=== PATIENT | male | born 1945 | race Caucasian/White ===

== ENCOUNTER 2020-01-16 09:04 | Outpatient (REF) | payer MEDICARE, BC, SELFPAY ==
[2020-01-16 11:31] LABS: Hematocrit 43.6 % (42-52); Hemoglobin 14.1 g/dl (14.0-18.0); Mean Corpuscular HGB Conc 32.3 g/dl (31.0-36.0); Mean Corpuscular Hemoglobin 28.8 pg (27.0-33.0); Mean Corpuscular Volume 89.2 fL (80-98); Mean Platelet Volume 10.4 fL (9.4-12.4); Platelet Count 232 X10*3/uL (160-400); Red Blood Count 4.89 X10*6/uL (4.60-5.80); Red Cell Distribution Width 12.5 % (11.0-16.0); White Blood Count 9.1 X10*3/uL (4.8-10.8)
[2020-01-16 11:50] LABS: Glucose Urine UA NEG (NEG); Leukocyte Esterase Urine 2+ (NEG); Nitrite Urine POS (NEG); Specific Gravity - Urine 1.025 (1.005-1.025); Urine Blood 1+ (NEG); Urine Ketones NEG (NEG); Urine Protein NEG (NEG-TRACE)
[2020-01-16 11:53] LABS: Appearance Urine CLOUDY; Color Urine YELLOW
[2020-01-16 12:04] LABS: Bacteria Urine 4+ /LPF; WBC Urine 50-75 /HPF (0-4)
[2020-01-16 12:19] LABS: Alanine Aminotransferase 23 U/L (0-40); Albumin Level 3.8 g/dL (3.5-5.0); Alkaline Phosphatase 70 U/L (39-117); Anion Gap 12 (12-20); Aspartate Amino Transferase 21 U/L (5-37); Bilirubin Total 0.7 mg/dL (0.0-1.0); Blood Urea Nitrogen 19 mg/dL (9-16); Calcium 8.1 mg/dL (8.4-10.2); Carbon Dioxide 31 mmol/L (22-29); Chloride 103 mmol/L (96-108); Cholesterol 118 mg/dL; Estimated Glomerular Filt Rate > 60; Glucose Fasting 94 mg/dL (60-99); HDL Cholesterol 40 mg/dL; LDL Cholesterol Calculated 55 mg/dl; Potassium 4.2 mmol/l (3.3-5.1); Prostate Specific Antigen Scr 3.97 ng/mL (<0.05-4.0); Sodium 142 mmol/L (135-145); Total Protein 6.4 g/dL (6.5-8.0); Triglycerides 119 mg/dL
== END 2020-01-16 09:05 | disposition home or self-care (01) ==
LOC: HO.HMGCLDS 09:04
PROVIDERS: PCP Internal Medicine; Visit Provider Internal Medicine
DX: N40.1 Benign prostatic hyperplasia with lower urinary tract symptoms (principal); G47.33 Obstructive sleep apnea (adult) (pediatric); E78.2 Mixed hyperlipidemia
CPT/HCPCS: 36415; 80053; 80061; 81001; 84153; 85027

== ENCOUNTER 2020-01-23 11:13 | Outpatient (REF) | payer MEDICARE, SELFPAY ==
[2020-01-23 14:15] LABS: Glucose Urine UA NEG (NEG); Leukocyte Esterase Urine 3+ (NEG); Nitrite Urine POS (NEG); PH 5.5 (5.0-8.0); Specific Gravity - Urine >= 1.030 (1.005-1.025); Urine Blood 2+ (NEG); Urine Ketones NEG (NEG); Urine Protein NEG (NEG-TRACE)
[2020-01-23 14:20] LABS: Appearance Urine CLOUDY; Color Urine YELLOW
[2020-01-23 14:36] LABS: Bacteria Urine 2+ /LPF; WBC Urine TNTC /HPF (0-4)
== END 2020-01-23 11:14 | disposition home or self-care (01) ==
LOC: HO.HMGCLDS 11:13
PROVIDERS: PCP Internal Medicine; Visit Provider Internal Medicine
DX: N40.0 Benign prostatic hyperplasia without lower urinary tract symptoms (principal)
CPT/HCPCS: 81001; 87086; 87088; 87186

== ENCOUNTER → 2020-03-11 11:15 | Outpatient (BNVA) | payer MEDICARE, BC, SELFPAY | PROVIDERS: PCP Internal Medicine; Visit Provider Internal Medicine | DX: I49.8 Other specified cardiac arrhythmias (principal); I10 Essential (primary) hypertension; G47.33 Obstructive sleep apnea (adult) (pediatric); Z99.89 Dependence on other enabling machines and devices | CPT/HCPCS: 93005; 99212 ==

== ENCOUNTER → 2020-03-17 09:00 | Outpatient (BNVA) | payer MEDICARE, BC, SELFPAY | PROVIDERS: PCP Internal Medicine; Visit Provider Psychiatry & Neurology Neurology | DX: Z76.89 Persons encountering health services in other specified circumstances (principal) | CPT/HCPCS: Q3014 ==

== ENCOUNTER 2020-03-18 10:30 | Outpatient (REF) | payer MEDICARE, BC, SELFPAY ==
[2020-03-18 13:57] LABS: MANUAL DIFF FLAG NO
[2020-03-18 14:06] LABS: Basophils Absolute Auto 0.1 X10*3/uL (0.0-0.2); Basophils Percent Auto 0.8 % (0-2); Eosinophils Absolute Auto 0.3 X10*3/uL (0.0-0.4); Eosinophils Percent Auto 2.8 % (0-4); Hematocrit 44.9 % (42-52); Hemoglobin 14.4 g/dl (14.0-18.0); Imm Gran Abs Auto 0.02 X10*3/uL (0.00-0.03); Imm Gran Pct Auto 0.2 % (0.0-0.4); Lymphocytes Absolute Auto 1.7 X10*3/uL (1.2-4.9); Lymphocytes Percent Auto 19.3 % (20-40); Mean Corpuscular HGB Conc 32.1 g/dl (31.0-36.0); Mean Corpuscular Hemoglobin 28.6 pg (27.0-33.0); Mean Corpuscular Volume 89.3 fL (80-98); Mean Platelet Volume 10.8 fL (9.4-12.4); Monocytes Absolute Auto 0.7 X10*3/uL (0.1-1.2); Monocytes Percent Auto 8.3 % (2-11); Neutrophils Absolute Auto 6.2 X10*3/uL (2.0-8.3); Neutrophils Percent Auto 68.6 % (45-73); Platelet Count 183 X10*3/uL (160-400); Red Blood Count 5.03 X10*6/uL (4.60-5.80); Red Cell Distribution Width 12.8 % (11.0-16.0)
[2020-03-18 14:22] LABS: Glucose Urine UA NEG (NEG); Leukocyte Esterase Urine NEG (NEG); Nitrite Urine NEG (NEG); PH 5.5 (5.0-8.0); Specific Gravity - Urine >= 1.030 (1.005-1.025); Urine Blood 1+ (NEG); Urine Ketones NEG (NEG); Urine Protein NEG (NEG-TRACE)
[2020-03-18 14:25] LABS: Appearance Urine CLOUDY; Color Urine YELLOW
[2020-03-18 14:46] LABS: Alanine Aminotransferase 21 U/L (0-40); Albumin Level 4.2 g/dL (3.5-5.0); Alkaline Phosphatase 64 U/L (39-117); Amorphous Sediment Urine 4+ /LPF; Anion Gap 13 (12-20); Aspartate Amino Transferase 18 U/L (5-37); Bacteria Urine TRACE /LPF; Bilirubin Total 0.7 mg/dL (0.0-1.0); Blood Urea Nitrogen 24 mg/dL (9-16); Carbon Dioxide 32 mmol/L (22-29); Chloride 103 mmol/L (96-108); Estimated Glomerular Filt Rate > 60; Glucose Random 91 mg/dL (60-115); Potassium 4.2 mmol/l (3.3-5.1); RBC Urine 0-2 /HPF (0); Sodium 144 mmol/L (135-145); Squamous Epithelial Cell Urine TRACE /LPF; Total Protein 6.7 g/dL (6.5-8.0); WBC Urine 0-2 /HPF (0-4)
[2020-03-18 14:54] LABS: Thyroid Stimulating Hormone 2.01 uIU/mL (0.32-4.0); Vitamin D 25-OH Total 31.6 ng/mL (>30)
[2020-03-18 15:09] LABS: Folate > 20.0 ng/mL (> or = 4.0); Vitamin B12 482 pg/mL (200-900)
== END 2020-03-18 10:31 | disposition home or self-care (01) ==
LOC: HO.HMGCLDS 10:30
PROVIDERS: PCP Internal Medicine; Visit Provider Psychiatry & Neurology Neurology
DX: R53.83 Other fatigue (principal); N40.0 Benign prostatic hyperplasia without lower urinary tract symptoms
CPT/HCPCS: 36415; 80053; 81001; 81003; 82306; 82607; 82746; 84443; 85025

== ENCOUNTER → 2020-04-06 13:14 | Outpatient (REF) | payer MEDICARE, BC, SELFPAY ==
--- NOTE | 2020-04-06 13:17 | ECG_ITS ---
Hook-up date: 2020-04-06 14:03:00 Duration: 43:57:00 Test Indications: CARDIAC ARRHYTHMIAS Medications: 45464 QRS complexes 144 Ventricular ectopics which represent <1 % of total QRS comp. 15 Supraventricular ectopics which represent <1 % of total QRS comp. * Paced QRS complexs which represent % of total QRS comp. VENTRICULAR ECTOPY 144 Isolated 0 Bigeminal Cycles 0 Couplets 0 Runs 0 Beats in Runs * Beats LONGEST at * BPM at :: -- * Beats FASTEST at * BPM at :: -- SUPRAVENTRICULAR ECTOPY 12 Isolated 0 Couplets 1 Runs 3 Beats in Runs 3 Beats LONGEST at 148 BPM at 15:01:28 2020-04-06 3 Beats FASTEST at 148 BPM at 15:01:28 2020-04-06 HEART RATES 43 MIN at 02:52:39 2020-04-07 64 AVG 132 MAX at 09:10:47 2020-04-07 LONGEST RR 1.4560 secs at 04:55:47 2020-04-07 S-T LEVELS Channel 1 - 128 mm at 14:03:00 2020-04-06 - 128 mm at 14:03:00 2020-04-06 Channel 2 - 128 mm at 14:03:00 2020-04-06 - 128 mm at 14:03:00 2020-04-06 Channel 3 - 128 mm at 03:32:21 -- - 128 mm at 03:32:21 Basic rhythm Normal sinus rhythm No long pause or profound bradycardia Frequent Sinus bradycardia , 49 % of time HR < 60 bpm Occasional Premature ventricular complexes Patient did not report any symptoms in the diary Referred By: Jeb Hqaue Overread By: WIL WATTS MD
--- NOTE | 2020-04-06 13:17 | CA_ITS ---
Transthoracic Echocardiogram Patient (Last, First, Middle): Kurtis Ybarra, Gender: Male Date of : 1945 Age: 74 Procedure Date: 04/06/2020 Procedure Type: Transthoracic Echocardiogram Location: OP Height: 175.26 cm Weight: 77.11 kg BSA: 1.93 m2 Heart Rate: bpm BP: 118 / 60 mmHg Accounting File Clerk: Referring MD: Jeb Haque MD Slide Attendant: Julio Dejesus MD Symptoms: I49.8 - Other specified cardiac arrhythmias Study Quality: Good ECG Rhythm: Sinus Conclusions: - 1. Normal LV systolic function with grade 1 diastolic dysfunction 2. Normal cardiac valvular Doppler with mild mitral annular calcification 3. Normal RV systolic pressure 4. No pericardial effusion Findings Left Ventricle Normal left ventricular size, thickness, and systolic function. The visually estimated ejection fraction is between 55-60%. Spectral Doppler is indicative of an impaired relaxation filling pattern. E/E prime ratio is <8, consistent with normal filling pressures. Evidence suggests grade I (mild) diastolic dysfunction. Right Ventricle Normal right ventricular cavity size and systolic function. Atria The left atrium is likely dilated. There is no evidence of interatrial shunt. The right atrium is normal in size. Aortic Valve There is mild calcification of the aortic valve. There is no aortic valve stenosis. There is no aortic valve regurgitation. Mitral Valve There is mild mitral annular calcification. There is trace mitral valve regurgitation. There is no mitral valve stenosis. Pulmonic Valve The pulmonic valve was not well visualized. Tricuspid Valve The right ventricular systolic pressure is normal. Normal right atrial pressure. Great Vessels All visible segments of the aorta are normal in size. The pulmonary artery was not well visualized. Venous The inferior vena cava is normal in size and collapses greater than 50% with inspiration. Pericardium/Pleural There is no evidence of pericardial effusion. Prior Study Comparison No significant change compared to prior study dated: 02/02/2018. Measurements 2D Linear Measurements IVSd: 0.80 0.6-0.9/0.6-1.0 cm LVIDd: 5.42 3.9-5.3/4.2-5.9 cm LVIDd Index: 2.81 2.4-3.2/2.2-3.1 cm/m2 LVIDs: 3.56 2.0-3.6 cm LVPWd: 0.84 0.7-1.1 cm Ao Root: 3.30 2.1-3.5 cm LA Diam: 4.00 2.7-3.8/3.0-4.0 cm LAIDs Index: 2.07 1.5-2.3 cm/m2 LV Mass: 200.38 67-162/88-224 g LV Mass Index: 103.83 43-95/49-115 g/m2 LVOT Diam: 2.00 3.0+(-)1.3 cm 2D Systolic Function EF 4C: 55.70 >55% EF 2C: 51.60 >55% Mitral Valve MV Pk E: 0.68 MV PK A: 0.90 MV Decel Time: 259.00 E/A: 0.80 E'Lateral: 12.40 E'Medial: 8.12 E/E' Med: 8.40 E/E' Lat: 5.50 PHT: 76.00 MVA PHT: 2.89 Decel [place]: 2.63 Aortic Valve AoV Pk Turner: 1.51 AoV Mn Turner: 0.89 AoV VTI: 0.34 AoV Pk Grad: 9.00 Aov Mn Grad: 4.00 RICARDO Cont.VTI: 2.23 LVOT LVOT Pk Turner: 1.05 LVOT Mn Turner: 0.67 LVOT VTI: 0.24 LVOT Pk Grad: 4.00 LVOT Mn Grad: 2.00 LVOT Diam: 2.00 LVOT Area: 3.14 Diastolic Function MV Pk E: 0.68 MV Pk A: 0.90 E/A: 0.80 E'Medial: 8.12 E/E' Med: 8.40 E' Laterial: 12.40 E/E' Lat: 5.50 Tricuspid Valve TR Pk Turner: 2.51 TR Pk Grad: 25.00 RA Press: 3.00 RVSP: 28.00 Great Vessels Aorta Ao Root-2D: 3.30 2.0-3.7 cm Ao Asc: 3.10 2.1-3.4 cm Pulmonary Valve PV Pk Turner: 1.06 Peak PV Grad: 4.00 Updated in Other Vendor System with Status of Final Julio Dejesus MD electronically signed on 04/07/2020 2:07:07 PM with status of Final
== END ==
LOC: HO.CARD 13:14
PROVIDERS: Visit Provider Internal Medicine
DX: I49.8 Other specified cardiac arrhythmias (principal)
CPT/HCPCS: 93225; 93226; 93306

== ENCOUNTER → 2020-04-29 11:18 | Outpatient (BNVA) | payer MEDICARE, BC, SELFPAY | PROVIDERS: PCP Internal Medicine; Visit Provider Internal Medicine | DX: I49.8 Other specified cardiac arrhythmias (principal); I10 Essential (primary) hypertension; G47.33 Obstructive sleep apnea (adult) (pediatric); Z99.89 Dependence on other enabling machines and devices | CPT/HCPCS: 99212 ==

== ENCOUNTER → 2020-09-29 11:22 | Outpatient (BNVA) | payer MEDICARE, BC, SELFPAY | PROVIDERS: PCP Internal Medicine; Visit Provider Psychiatry & Neurology Neurology | DX: G47.33 Obstructive sleep apnea (adult) (pediatric) (principal); R53.83 Other fatigue; Z99.89 Dependence on other enabling machines and devices | CPT/HCPCS: Q3014 ==

== ENCOUNTER 2020-11-11 08:55 | Day surgery (SDC) | payer MEDICARE, BC, SELFPAY ==
[2020-11-04 13:49] VITALS: BMI 25.1
--- NOTE | 2020-11-10 10:16 | P.CONAN_ITS ---
Documented by User: Dottie Bangura NP 11/10/20 10:17 [facility] Active Problems Active Problems: All Active Problems (Updated 11/04/20 @ 13:48 by Fernanda Lawrence RN) Atrial arrhythmia (Acute) Fatigue (Acute) JAYLA on CPAP (Acute) Essential hypertension (Acute) BPH (benign prostatic hyperplasia) (Acute) HTN (hypertension) (Acute) Past Medical History Medical History BPH (benign prostatic hyperplasia) COVID-19 vaccine series completed Essential hypertension GERD (gastroesophageal reflux disease) H/O needle biopsy HTN (hypertension) Hyperlipidemia JAYLA on CPAP Premature atrial contractions Family History Family History Father No problems noted. Mother No problems noted. Surgical History Surgical History H/O colonoscopy Hx of detached retina repair Social History Social History Are you a primary care advocate to a significant other at home: No Do you presently have visiting nurse or other home services: No Alcohol intake: current Alcohol intake frequency: holidays/special occasions only Patient Tobacco Use Status: Never used Tobacco Use of substances other than those prescribed or required for medical reasons: No Have you been hit, kicked, punched, or otherwise hurt by someone within the past year? If so, by whom?: No Are you DNR?: No Advance Directives: No Advance Directives Information Provided: Yes (no official HCP form but states would be his ) Advance Directives on File: No Recently lost weight without trying: No Eating poorly because of decreased appetite: No Nutrition Risks: No Nutritional Risk Poor oral hygiene: No Meds Allergies Allergy/AdvReac Type Severity Reaction Status Date / Time No Known Allergies Allergy Verified 09/29/20 11:25 Home Medications Medication Instructions Recorded Confirmed Last Taken Type aspirin 81 mg tablet,delayed 81 mg PO DAILY 01/23/20 11/04/20 Unknown History release biotin 1 mg tablet 1 mg PO DAILY 01/23/20 11/04/20 Unknown History chlorhexidine gluconate 0.12 % 0.5 ml PO BID 01/23/20 04/29/20 Unknown History mouthwash finasteride 5 mg tablet 5 mg PO BEDTIME 01/23/20 11/04/20 Unknown History fluticasone propionate 50 1 spray INTRANASAL DAILY 01/23/20 11/04/20 Unknown History mcg/actuation nasal spray,suspension multivitamin with iron 1 tab PO DAILY 01/23/20 11/04/20 Unknown History tamsulosin 0.4 mg capsule 0.4 mg PO BEDTIME 01/23/20 11/04/20 Unknown History ascorbic acid (vitamin C) 500 mg 500 mg PO DAILY 04/29/20 11/04/20 Unknown History capsule simvastatin 40 mg tablet 40 mg PO QPM 11/04/20 11/04/20 Unknown History Exam Exam Date and Time: November 10, 2020 1016 Height,Weight and Vital Signs: Height 5 ft 9 in Weight 77.111 kg Narrative Narrative: EKG 03/2020 baseline artifact but underlying rhythm appears to be sinus at 56/Min with some lateral ST-T changes which are nonspecific. ECHO 04/2020 Conclusions: - 1. Normal LV systolic function with grade 1 diastolic? dysfunction? 2. Normal cardiac valvular Doppler with mild mitral annular? ? ? calcification? 3. Normal RV systolic pressure ? 4. No pericardial effusion ? ? ? Holter 2020 Basic rhythm Normal sinus rhythm No long pause or profound bradycardia Frequent Sinus bradycardia , 49 % of time HR < 60 bpm Occasional Premature ventricular complexes Patient did not report any symptoms in the diary Exercise stress [id number] protocol, 7.6 Mets; no angina or ischemic findings Assessment and Plan Assessment Anesthesia Assessment: Chart Reviewed Documented by User: Adele Mayo MD 11/11/20 11:02 [facility] Past Medical History Medical History BPH (benign prostatic hyperplasia) COVID-19 vaccine series completed Essential hypertension GERD (gastroesophageal reflux disease) H/O needle biopsy HTN (hypertension) Hyperlipidemia JAYLA on CPAP Premature atrial contractions Family History Family History Father No problems noted. Mother No problems noted. Surgical History Surgical History H/O colonoscopy Hx of detached retina repair History of Problems with Anesthesia: No Social History Social History Are you a primary care advocate to a significant other at home: No Do you presently have visiting nurse or other home services: No Alcohol intake: current Alcohol intake frequency: holidays/special occasions only Patient Tobacco Use Status: Never used Tobacco Use of substances other than those prescribed or required for medical reasons: No Have you been hit, kicked, punched, or otherwise hurt by someone within the past year? If so, by whom?: No Are you DNR?: No Advance Directives: No Advance Directives Information Provided: Yes (no official HCP form but states would be his ) Advance Directives on File: No Recently lost weight without trying: No Eating poorly because of decreased appetite: No Nutrition Risks: No Nutritional Risk Poor oral hygiene: No Meds Allergies Allergy/AdvReac Type Severity Reaction Status Date / Time No Known Allergies Allergy Verified 09/29/20 11:25 Home Medications Medication Instructions Recorded Confirmed Last Taken Type aspirin 81 mg tablet,delayed 81 mg PO DAILY 01/23/20 11/04/20 Unknown History release biotin 1 mg tablet 1 mg PO DAILY 01/23/20 11/04/20 Unknown History chlorhexidine gluconate 0.12 % 0.5 ml PO BID 01/23/20 04/29/20 Unknown History mouthwash finasteride 5 mg tablet 5 mg PO BEDTIME 01/23/20 11/04/20 Unknown History fluticasone propionate 50 1 spray INTRANASAL DAILY 01/23/20 11/04/20 Unknown History mcg/actuation nasal spray,suspension multivitamin with iron 1 tab PO DAILY 01/23/20 11/04/20 Unknown History tamsulosin 0.4 mg capsule 0.4 mg PO BEDTIME 01/23/20 11/04/20 Unknown History ascorbic acid (vitamin C) 500 mg 500 mg PO DAILY 04/29/20 11/04/20 Unknown History capsule simvastatin 40 mg tablet 40 mg PO QPM 11/04/20 11/04/20 Unknown History Exam Airway Mallampati Class: III (Prominent upper central incisors) TM Dist: >3cm Neck ROM: Full Loose/Missing/Broken Teeth: No Heart: RRR Lungs: CTA Assessment and Plan Assessment Anesthesia Assessment: Anesthesia Plan Discussed Final Anesthetic Review History of Problems with Anesthesia: No NPO: Yes ASA Class: III Final Preanesthetic Review: Meds/Allgs Chart Reviewed, Consent Obtained/Reviewed and Anes Risks/Benef Reviewed Patient Risk: Intermediate Procedure Risk: Low Anesthetic Plan Anesthetic Plan: MAC: Disposition: Standard PACU
[2020-11-11 09:14] VITALS: BP 152/71; PULSE 59; RESP 18; TEMP 36.1; O2SAT 96
[2020-11-11] MEDS: Lactated Ringers 1,000 ML 100 ML IVCONT (09:25)
[2020-11-11 12:02] VITALS: BP 102/62; PULSE 52; RESP 18; TEMP 36.3; O2SAT 97
--- NOTE | 2020-11-11 12:07 | PM.OP ---
Brief Operative Note Date of Service: 11/11/20 Pre-op diagnosis: Screening Post-op diagnosis: other (Colon polyps) Procedure: Colonoscopy to the cecum with snare polypectomy, bx/removal of polyp, and clip x 2 and ink tatoo at polypectomy site at 60cm distal transverse colon Surgeon: Luc Pereira Anesthesia: MAC Was an Airport Operations Coordinator used for this Procedure?: No Estimated blood loss (mL): 5.0 Pathology: other (A. Polyp at 40cm(bx) B. Ascending colon polyp(snare) C. Hepatic flexure polyps x 2(snare) D. Transverse colon polyp(snare) E. Polyp at distal transverse colon/60cm(snare, clipped, and inked)) Condition: stable Disposition: PACU
[2020-11-11 12:17] VITALS: BP 107/58; PULSE 53; RESP 18; O2SAT 96
[2020-11-11 12:31] VITALS: BP 107/58; PULSE 55; RESP 18; TEMP 36.3; O2SAT 97
--- NOTE | 2020-11-16 14:36 | OP_ITS ---
SURGEON: Luc Pereira MD INDICATIONS: The patient presents for evaluation of colorectal cancer screening and personal history of tubular adenoma of the colon. Full consent has been obtained from him for this, including risks of bleeding and perforation. PREOPERATIVE DIAGNOSIS: POSTOPERATIVE DIAGNOSIS: PROCEDURE PERFORMED: Colonoscopy to the cecum with snare polypectomy, biopsy and removal of polyp, and placement of resolution clips and submucosal ink tattoo at the polypectomy site in the distal transverse colon at 60 cm. ESTIMATED BLOOD LOSS: COMPLICATIONS: ANESTHESIA: Monitored anesthesia care. ASSISTANTS: SPECIMENS: PREOPERATIVE DIAGNOSES: Colorectal cancer screening and personal history of tubular adenoma of the colon. POSTOPERATIVE DIAGNOSES: Colorectal cancer screening and personal history of tubular adenoma of the colon, colon polyps, diverticulosis, and internal hemorrhoids. DESCRIPTION OF PROCEDURE: The patient was placed in the left lateral decubitus position. The digital rectal exam revealed no abnormalities. The Olympus video pediatric colonoscope was entered into the rectum and advanced to the cecum with the assistance of abdominal wall pressure. Once in the cecum, I did identify normal-appearing cecal pouch with appendiceal orifice and a normal-appearing ileocecal valve. There was transillumination of light deep in the right lower quadrant. The entire cecum and ileocecal valve appeared normal. The scope was then slowly withdrawn assessing all mucosal surfaces carefully. Preparation was excellent. In the proximal ascending colon on a fold, was an approximately 10 to 12 mm flat, but raised polypoid lesion that was somewhat overlapping the fold. This was snared and recovered by suction. The polypectomy site appeared clean, without any sign of residual polyp nor bleeding. In the region of the hepatic flexure, were 2 approximately 6 to 8 mm polyps, which were each snared and recovered by suction and placed in the same container. The polypectomy sites appeared clean, without any sign of residual polyp nor bleeding. In the mid transverse colon, was an approximately 6 to 8 mm flat, but raised polyp, which was snared and recovered by suction. The polypectomy site appeared clean, without any sign of residual polyp nor bleeding. In the region of what appeared to be the distal transverse colon, at 60 cm, was a relatively large lobulated polypoid lesion overlapping a fold. This was approximately 15 x 20 cm. It was not ulcerated, but was somewhat friable. This was removed almost in its entirety in piecemeal fashion, but I do feel there was some residual polyp tissue left behind. Multiple pieces were recovered by suction. Post polypectomy, there was some oozing noted, but there was no sign of any active bleeding. I did use 2 resolution clips on the polypectomy site with good deployment and good hemostasis. I also injected submucosal ink just proximal and just distal to the lesion with good markings achieved. At 40 cm, was a flat approximately 4 mm polyp, which was biopsied and completely removed with cold biopsy forceps. I did not visualize any other polyps, colitis, nor angiodysplasia. There was a moderate amount of sigmoid diverticulosis. In the rectum, scope was retroflexed visualizing some small internal hemorrhoids, but no other pathology. The rectal mucosa appeared normal. The scope was straightened and withdrawn from the patient. He tolerated the procedure well and was returned to recovery area in stable condition. IMPRESSION: 1. Multiple colon polyps. The larger polyp in the distal transverse colon at 60 cm did appear somewhat suspicious. 2. Diverticulosis. 3. Internal hemorrhoids. PLAN: The results of the biopsies will be checked. Further plans will be made accordingly in regard to the larger polyp. If this is simply tubular adenoma or villous adenoma without any significant dysplasia or carcinoma, then we could plan to go back to try to remove the rest of it in 3 to 6 months. He was advised not to use any aspirin nor NSAIDs for at least 2 weeks. I will be in touch with him as to these results. This has been discussed with the patient and his in detail. MD KARTHIK Duke/VIANCA / [id number]
== END 2020-11-11 13:07 | disposition home or self-care (01) ==
PROVIDERS: PCP Internal Medicine; Visit Provider Internal Medicine
PROC: 0DJD8ZZ Inspection of Lower Intestinal Tract, Via Natural or Artificial Opening Endoscopic (ICD-10-PCS; CPT 45378; principal; 2020-11-11 10:00)
DX: Z12.11 Encounter for screening for malignant neoplasm of colon (principal); Z86.010 Personal history of colon polyps; D12.2 Benign neoplasm of ascending colon; D12.3 Benign neoplasm of transverse colon; D12.5 Benign neoplasm of sigmoid colon; K57.30 Diverticulosis of large intestine without perforation or abscess without bleeding; K64.8 Other hemorrhoids; G47.33 Obstructive sleep apnea (adult) (pediatric); N40.0 Benign prostatic hyperplasia without lower urinary tract symptoms; Z79.82 Long term (current) use of aspirin; Z99.89 Dependence on other enabling machines and devices
CPT/HCPCS: 45385; 45380; 45381; 88305; J3010

== ENCOUNTER 2021-01-13 08:58 | Outpatient (REF) | payer MEDICARE, BC, SELFPAY ==
[2021-01-13 11:35] LABS: Hemoglobin 14.7 g/dl (14.0-18.0); Mean Corpuscular HGB Conc 32.7 g/dl (31.0-36.0); Mean Corpuscular Hemoglobin 28.4 pg (27.0-33.0); Platelet Count 209 X10*3/uL (160-400); Red Blood Count 5.17 X10*6/uL (4.60-5.80); Red Cell Distribution Width 12.7 % (11.0-16.0); White Blood Count 7.5 X10*3/uL (4.8-10.8)
[2021-01-13 11:47] LABS: Alanine Aminotransferase 21 U/L (0-40); Albumin Level 4.2 g/dL (3.5-5.0); Alkaline Phosphatase 60 U/L (39-117); Anion Gap 11 (12-20); Aspartate Amino Transferase 20 U/L (5-37); Bilirubin Total 0.5 mg/dL (0.0-1.0); Blood Urea Nitrogen 23 mg/dL (9-16); Calcium 9.3 mg/dL (8.4-10.2); Carbon Dioxide 31 mmol/L (22-29); Chloride 104 mmol/L (96-108); Cholesterol 146 mg/dL; Estimated Glomerular Filt Rate > 60; Glucose Fasting 95 mg/dL (60-99); HDL Cholesterol 56 mg/dL; LDL Cholesterol Calculated 67 mg/dl; Sodium 142 mmol/L (135-145); Total Protein 7.1 g/dL (6.5-8.0); Triglycerides 117 mg/dL
[2021-01-13 13:44] LABS: Prostate Specific Antigen Scr 3.95 ng/mL (<0.05-4.0)
== END 2021-01-13 08:59 | disposition home or self-care (01) ==
LOC: HO.HMGCLDS 08:58
PROVIDERS: PCP Internal Medicine; Visit Provider Internal Medicine
DX: I10 Essential (primary) hypertension (principal); I49.8 Other specified cardiac arrhythmias; R53.83 Other fatigue
CPT/HCPCS: 36415; 80053; 80061; 84153; 85027

== ENCOUNTER → 2021-04-21 09:54 | Outpatient (REF) | payer MEDICARE, BC, SELFPAY ==
--- NOTE | 2021-04-21 14:02 | ECG_ITS ---
Hook-up date: 2021-04-21 11:10:00 Duration: 46:12:00 Test Indications: OTHER SPEC. CARDIAC ARRHYTHMIAS Medications: 58966 QRS complexes 65 Ventricular ectopics which represent <1 % of total QRS comp. 52 Supraventricular ectopics which represent <1 % of total QRS comp. * Paced QRS complexs which represent % of total QRS comp. VENTRICULAR ECTOPY 65 Isolated 0 Bigeminal Cycles 0 Couplets 0 Runs 0 Beats in Runs * Beats LONGEST at * BPM at :: -- * Beats FASTEST at * BPM at :: -- SUPRAVENTRICULAR ECTOPY 46 Isolated 1 Couplets 1 Runs 4 Beats in Runs 4 Beats LONGEST at 130 BPM at 20:19:33 2021-04-21 4 Beats FASTEST at 130 BPM at 20:19:33 2021-04-21 HEART RATES 49 MIN at 05:17:04 2021-04-22 63 AVG 101 MAX at 09:30:55 2021-04-22 LONGEST RR 1.4000 secs at 05:49:26 2021-04-22 S-T LEVELS Channel 1 - 128 mm at 11:10:00 2021-04-21 - 128 mm at 11:10:00 2021-04-21 Channel 2 - 128 mm at 11:10:00 2021-04-21 - 128 mm at 11:10:00 2021-04-21 Channel 3 - 128 mm at 03:02:91 -- - 128 mm at 03:02:91 Basic rhythm Normal sinus rhythm Frequent Sinus bradycardia , 45% of time HR < 60 bpm Rare ectopics No diary submitted Referred By: Jeb Haque Overread By: WIL WATTS MD
== END ==
LOC: HO.CARD 09:54
PROVIDERS: PCP Internal Medicine; Referring Provider Internal Medicine; Visit Provider Internal Medicine
DX: I49.8 Other specified cardiac arrhythmias (principal)
CPT/HCPCS: 93226

== ENCOUNTER → 2021-05-03 09:55 | Outpatient (BNVA) | payer MEDICARE, BC, SELFPAY | PROVIDERS: PCP Internal Medicine; Referring Provider Internal Medicine; Visit Provider Internal Medicine | DX: I49.8 Other specified cardiac arrhythmias (principal); I10 Essential (primary) hypertension; G47.33 Obstructive sleep apnea (adult) (pediatric); Z99.89 Dependence on other enabling machines and devices | CPT/HCPCS: 93005; 99212 ==

== ENCOUNTER 2021-05-10 07:00 | Day surgery (SDC) | payer MEDICARE, BC, SELFPAY ==
[2021-05-04 13:59] VITALS: BMI 26.2
[2021-05-10 07:54] VITALS: BP 160/72; PULSE 54; RESP 16; TEMP 36.5; O2SAT 95
[2021-05-10] MEDS: Lactated Ringers 1,000 ML 50 ML IVCONT (08:03)
--- NOTE | 2021-05-10 08:15 | HO.ANESPROP2 ---
HPI - Anesthesia Eval Consult details Narrative: screening colonoscopy [facility] Active Problems Active Problems: All Active Problems (Updated 01/18/21 @ 15:00 by Karen Charles MD) Atrial arrhythmia (Acute) Fatigue (Acute) Vitamin D deficiency (Acute) Annual physical exam (Acute) Hyperlipidemia (Acute) JAYLA on CPAP (Acute) Essential hypertension (Acute) BPH (benign prostatic hyperplasia) (Acute) HTN (hypertension) (Acute) Past Medical History Medical History (Updated 01/18/21 @ 15:00 by Karen Charles MD) Annual physical exam BPH (benign prostatic hyperplasia) COVID-19 vaccine series completed Essential hypertension GERD (gastroesophageal reflux disease) H/O needle biopsy HTN (hypertension) Hyperlipidemia JAYLA on CPAP Premature atrial contractions Vitamin D deficiency Family History Family History Father No problems noted. Mother No problems noted. Family history of problems with anesthesia: No Surgical History Surgical History (Updated 05/04/21 @ 13:50 by Fernanda Lawrence RN) H/O colonoscopy Hx of detached retina repair History of Problems with Anesthesia: No Social History Social History Housing: House Are you a primary account executive healthcare to a significant other at home: No Do you presently have visiting nurse or other home services: No Alcohol intake: current Alcohol intake frequency: holidays/special occasions only Patient Tobacco Use Status: Never used Tobacco e-Cigarette/Vaping Use: Never Used Use of substances other than those prescribed or required for medical reasons: No Advance Directives: No (unknown-VM message left) Advance Directives Information Provided: Yes Advance Directives on File: No Current occupational status: retired Meds Allergies Allergy/AdvReac Type Severity Reaction Status Date / Time No Known Allergies Allergy Verified 05/10/21 07:45 Active Medications: Current Medications Lactated Ringer's (Lr) 1,000 mls @ 50 mls/hr IVCONT .Q20H NATHANAEL Last Admin: 05/10/21 08:03 Dose: 50 mls/hr Documented by: Sodium Biphosphate/Sodium Phosphate (Sodium Phosphate,[place]-Dibasic 133 Ml Enema) 133 ml HI ONCE PRN PRN Reason: Poor Colonoscopy Prep Results Home Medications Medication Instructions Recorded Confirmed Last Taken Type aspirin 81 mg tablet,delayed 81 mg PO DAILY 01/23/20 05/10/21 05/02/21 History release biotin 1 mg tablet 1 mg PO DAILY 01/23/20 05/04/21 Unknown History chlorhexidine gluconate 0.12 % 0.5 ml PO BID 01/23/20 05/04/21 Unknown History mouthwash finasteride 5 mg tablet 5 mg PO BEDTIME 01/23/20 05/04/21 Unknown History multivitamin with iron 1 tab PO DAILY 01/23/20 05/04/21 Unknown History tamsulosin 0.4 mg capsule 0.4 mg PO BEDTIME 01/23/20 05/04/21 Unknown History ascorbic acid (vitamin C) 500 mg 500 mg PO DAILY 04/29/20 05/04/21 Unknown History capsule simvastatin 40 mg tablet 40 mg PO QPM 11/04/20 05/04/21 Unknown History cholecalciferol (vitamin D3) 50 50 mcg PO DAILY 01/18/21 05/04/21 Unknown History mcg (2,000 unit) capsule Exam Exam Date and Time: May 10, 2021 0815 Height,Weight and Vital Signs: Height 5 ft 8.25 in Weight 78.925 kg Last Vital Signs Temp 97.7 F 05/10/21 07:54 Pulse 54 05/10/21 07:54 Resp 16 05/10/21 07:54 BP 160/72 H 05/10/21 07:54 Pulse Ox 95 05/10/21 07:54 Airway Mallampati Class: II TM Dist: >3cm Neck ROM: Full Loose/Missing/Broken Teeth: No Heart: [id number] Lungs: cta b/l Assessment and Plan Assessment Anesthesia Assessment: Anesthesia Plan Discussed and Chart Reviewed Final Anesthetic Review Family History of Problems with Anesthesia: No History of Problems with Anesthesia: No NPO: Yes ASA Class: III Final Preanesthetic Review: No Changes in Pt Med Stat, Meds/Allgs Chart Reviewed, Consent Obtained/Reviewed and Anes Risks/Benef Reviewed Patient Risk: Intermediate Procedure Risk: Low Assessment/Block/Sedation in SS: Assess/Block/Sedation-SS Anesthetic Plan Anesthetic Plan: MAC: and Agree w/ Assess. and Plan Disposition: Standard PACU
--- NOTE | 2021-05-10 09:49 | PM.OP ---
Brief Operative Note Date of Service: 05/10/21 Pre-op diagnosis: Screening Post-op diagnosis: other (Polyps) Procedure: Colonoscopy to the cecum with hot snare polypectomy Surgeon: Luc Pereira Anesthesia: MAC Was an Housing Development Specialist used for this Procedure?: No Estimated blood loss (mL): 3.0 Pathology: other (A. Polyp at 60cm) Condition: stable Disposition: PACU
[2021-05-10 09:52] VITALS: BP 140/66; PULSE 56; RESP 14; TEMP 36.1; O2SAT 99
[2021-05-10 10:07] VITALS: BP 136/70; PULSE 58; RESP 18; O2SAT 95
[2021-05-10 10:22] VITALS: BP 132/67; PULSE 50; RESP 18; TEMP 36.2; O2SAT 95
--- NOTE | 2021-05-10 10:41 | OP_ITS ---
SURGEON: Luc Pereira MD INDICATIONS: The patient presents for evaluation of colorectal cancer screening and personal history of tubular adenoma of the colon. Full consent was obtained from him for this, including risks of bleeding and perforation. PREOPERATIVE DIAGNOSIS: Colorectal cancer screening and personal history of tubular adenoma of the colon. POSTOPERATIVE DIAGNOSIS: PROCEDURE PERFORMED: Colonoscopy to the cecum with hot snare polypectomy x 2. ESTIMATED BLOOD LOSS: COMPLICATIONS: ANESTHESIA: Monitored anesthesia care. ASSISTANTS: SPECIMENS: POSTOPERATIVE DIAGNOSES: Colorectal cancer screening and personal history of tubular adenomas of the colon, colon polyps, diverticulosis, and internal hemorrhoids. DESCRIPTION OF PROCEDURE: The patient was placed in the left lateral decubitus position. The digital rectal exam revealed no abnormalities. The Olympus video pediatric colonoscope was entered into the rectum and advanced easily to the cecum. Once in the cecum, I did identify normal-appearing cecal pouch with normal-appearing ileocecal valve. The appendiceal orifice was visualized and appeared normal. The entire cecum and ileocecal valve appeared normal. The terminal ileum was cannulated and appeared normal. The scope was withdrawn back in the colon. The entire cecum and ileocecal valve appeared normal. The scope was slowly withdrawn assessing all mucosal surfaces carefully. Preparation was excellent. At 60 cm, with the previously placed submucosal ink gomez noted just proximal and distal to this area, was an approximately 5 or 6 mm polyp, which was removed by hot snare polypectomy. In the same area was the residual polyp that had previously been removed. This was an area approximately 1.5 cm in diameter along the fold. The majority of this was removed via hot snare polypectomy. Portions of polyp were cauterized with the tip of the snare as well. Postpolypectomy, there was probably still some residual polyp tissue remaining, but there was no bleeding. At least 1 piece was recovered by suction. I did not visualize any other polyps, colitis, nor angiodysplasia. There was a mild amount of sigmoid diverticulosis. In the rectum, the scope was retroflexed visualizing some internal hemorrhoids, but no other pathology. The rectal mucosa appeared normal. The scope was straightened and withdrawn from the patient. He tolerated the procedure well and was returned to the recovery area in stable condition. IMPRESSION: 1. Colon polyps, status post hot snare polypectomy. 2. Diverticulosis. 3. Internal hemorrhoids. PLAN: The results of the pathology will be checked. Given the history and today's findings, I would recommend that he see me again by November and we shall then schedule a followup colonoscopy for later in the fall. He was advised not to use any aspirin and NSAIDs for at least 1 week. This has been discussed with his . MD KARTHIK Duke/VIANCA / [id number] MTDD
== END 2021-05-10 11:29 | disposition home or self-care (01) ==
PROVIDERS: PCP Internal Medicine; Visit Provider Internal Medicine
PROC: 0DJD8ZZ Inspection of Lower Intestinal Tract, Via Natural or Artificial Opening Endoscopic (ICD-10-PCS; CPT 45378; principal; 2021-05-10 08:20)
DX: Z12.11 Encounter for screening for malignant neoplasm of colon (principal); Z86.010 Personal history of colon polyps; K63.5 Polyp of colon; K57.30 Diverticulosis of large intestine without perforation or abscess without bleeding; K64.8 Other hemorrhoids; N40.0 Benign prostatic hyperplasia without lower urinary tract symptoms; I10 Essential (primary) hypertension; E78.5 Hyperlipidemia, unspecified; G47.33 Obstructive sleep apnea (adult) (pediatric); Z79.82 Long term (current) use of aspirin; Z79.899 Other long term (current) drug therapy
CPT/HCPCS: 45385; 88305

== ENCOUNTER 2022-01-12 09:32 | Outpatient (REF) | payer MEDICARE, BC, SELFPAY ==
[2022-01-12 11:31] LABS: Hematocrit 43.5 % (42.0-52.0); Hemoglobin 14.4 g/dl (14.0-18.0); Mean Corpuscular HGB Conc 33.1 g/dl (31.0-36.0); Mean Corpuscular Hemoglobin 28.9 pg (27.0-33.0); Mean Corpuscular Volume 87.3 fL (80.0-98.0); Mean Platelet Volume 10.6 fL (9.4-12.4); Platelet Count 175 X10*3/uL (160-400); Red Blood Count 4.98 X10*6/uL (4.60-5.80); Red Cell Distribution Width 12.8 % (11.0-16.0); White Blood Count 6.6 X10*3/uL (4.8-10.8)
[2022-01-12 12:12] LABS: Alanine Aminotransferase 23 U/L (0-40); Albumin Level 4.2 g/dL (3.5-5.0); Alkaline Phosphatase 62 U/L (39-117); Anion Gap 16 (12-20); Aspartate Amino Transferase 21 U/L (5-37); Bilirubin Total 0.7 mg/dL (0.0-1.0); Blood Urea Nitrogen 22 mg/dL (9-16); Calcium 8.6 mg/dL (8.4-10.2); Carbon Dioxide 29 mmol/L (22-29); Chloride 102 mmol/L (96-108); Cholesterol 153 mg/dL; Estimated Glomerular Filt Rate > 60; Glucose Fasting 99 mg/dL (60-99); HDL Cholesterol 60 mg/dL; LDL Cholesterol Calculated 74 mg/dl; Potassium 3.6 mmol/L (3.3-5.1); Sodium 143 mmol/L (135-145); Triglycerides 98 mg/dL
== END 2022-01-12 09:33 | disposition home or self-care (01) ==
LOC: HO.HMGCLDS 09:32
PROVIDERS: PCP Internal Medicine; Visit Provider Internal Medicine
DX: Z00.00 Encounter for general adult medical examination without abnormal findings (principal); E55.9 Vitamin D deficiency, unspecified; E78.5 Hyperlipidemia, unspecified; I10 Essential (primary) hypertension
CPT/HCPCS: 36415; 80053; 80061; 82306; 85027

== ENCOUNTER 2022-02-10 06:25 | Day surgery (SDC) | payer MEDICARE, BC, SELFPAY ==
--- NOTE | 2022-01-07 10:51 | HO.ANESPROP2 ---
HPI - Anesthesia Eval Consult details Narrative: 76yo M for Colonoscopy s/p same 05/2021 with TIVA PMFSH Active Problems Active Problems: All Active Problems (Updated 11/18/21 @ 11:48 by Karen Charles MD) Cataract (Acute) Atrial arrhythmia (Acute) Fatigue (Acute) Vitamin D deficiency (Acute) Annual physical exam (Acute) Hyperlipidemia (Acute) JAYLA on CPAP (Acute) Essential hypertension (Acute) BPH (benign prostatic hyperplasia) (Acute) HTN (hypertension) (Acute) Past Medical History Medical History Annual physical exam BPH (benign prostatic hyperplasia) COVID-19 vaccine series completed Essential hypertension GERD (gastroesophageal reflux disease) H/O needle biopsy HTN (hypertension) Hyperlipidemia JAYLA on CPAP Premature atrial contractions Vitamin D deficiency Family History Family History Father No problems noted. Mother No problems noted. Family history of problems with anesthesia: No Surgical History Surgical History H/O colonoscopy Hx of detached retina repair History of Problems with Anesthesia: No Social History Social History Housing: House Are you a primary healthcare translator to a significant other at home: No Do you presently have visiting nurse or other home services: No Alcohol intake: current Alcohol intake frequency: holidays/special occasions only Patient Tobacco Use Status: Never used Tobacco e-Cigarette/Vaping Use: Never Used Current occupational status: retired Cognitive needs: No Hearing needs: No Vision needs: Yes Meds Allergies Allergy/AdvReac Type Severity Reaction Status Date / Time No Known Allergies Allergy Verified 11/18/21 11:09 Home Medications Medication Instructions Recorded Confirmed Last Taken Type aspirin 81 mg tablet,delayed 81 mg PO DAILY 01/23/20 11/18/21 05/02/21 History release biotin 1 mg tablet 1 mg PO DAILY 01/23/20 11/18/21 Unknown History chlorhexidine gluconate 0.12 % 0.5 ml PO BID 01/23/20 11/18/21 Unknown History mouthwash finasteride 5 mg tablet 5 mg PO BEDTIME 01/23/20 11/18/21 Unknown History multivitamin with iron 1 tab PO DAILY 01/23/20 11/18/21 Unknown History tamsulosin 0.4 mg capsule 0.4 mg PO BEDTIME 01/23/20 11/18/21 Unknown History ascorbic acid (vitamin C) 500 mg 500 mg PO DAILY 04/29/20 11/18/21 Unknown History capsule cholecalciferol (vitamin D3) 50 50 mcg PO DAILY 01/18/21 11/18/21 Unknown History mcg (2,000 unit) capsule Exam Exam Date and Time: January 07, 2022 1051 Narrative Narrative: EKG 04/2021 NSR @ 60 Assessment and Plan Assessment Anesthesia Assessment: Chart Reviewed Final Anesthetic Review Family History of Problems with Anesthesia: No History of Problems with Anesthesia: No
--- NOTE | 2022-02-09 12:41 | HO.ANESPROP2 ---
Documented by User: Dottie Bangura NP 02/09/22 12:44 HPI - Anesthesia Eval Consult details Narrative: 76yo M for Colonoscopy s/p colo 05/2021 with TIVA PMFSH Active Problems Active Problems: All Active Problems (Updated 11/18/21 @ 11:48 by Karen Charles MD) Cataract (Acute) Atrial arrhythmia (Acute) Fatigue (Acute) Vitamin D deficiency (Acute) Annual physical exam (Acute) Hyperlipidemia (Acute) JAYLA on CPAP (Acute) Essential hypertension (Acute) BPH (benign prostatic hyperplasia) (Acute) HTN (hypertension) (Acute) Past Medical History Medical History Annual physical exam BPH (benign prostatic hyperplasia) Cataract, left COVID-19 vaccine series completed Essential hypertension GERD (gastroesophageal reflux disease) H/O needle biopsy HTN (hypertension) Hyperlipidemia JAYLA on CPAP Premature atrial contractions Vitamin D deficiency Family History Family History Father No problems noted. Mother No problems noted. Family history of problems with anesthesia: No Surgical History Surgical History H/O colonoscopy Hx of detached retina repair History of Problems with Anesthesia: No Social History Social History Housing: House Are you a primary youth care professional to a significant other at home: No Do you presently have visiting nurse or other home services: No Alcohol intake: current Alcohol intake frequency: holidays/special occasions only Patient Tobacco Use Status: Never used Tobacco e-Cigarette/Vaping Use: Never Used Use of substances other than those prescribed or required for medical reasons: No Are you DNR?: No Advance Directives: No Advance Directives Information Provided: Yes Current occupational status: retired Cognitive needs: No Hearing needs: No Vision needs: Yes Meds Allergies Allergy/AdvReac Type Severity Reaction Status Date / Time No Known Allergies Allergy Verified 11/18/21 11:09 Home Medications Medication Instructions Recorded Confirmed Last Taken Type aspirin 81 mg tablet,delayed 81 mg PO DAILY 01/23/20 02/10/22 02/09/22 History release biotin 1 mg tablet 1 mg PO DAILY 01/23/20 02/10/22 Unknown History chlorhexidine gluconate 0.12 % 0.5 ml PO BID 01/23/20 02/10/22 Unknown History mouthwash finasteride 5 mg tablet 5 mg PO BEDTIME 01/23/20 02/10/22 Unknown History multivitamin with iron 1 tab PO DAILY 01/23/20 02/10/22 Unknown History tamsulosin 0.4 mg capsule 0.4 mg PO BEDTIME 01/23/20 02/10/22 Unknown History ascorbic acid (vitamin C) 500 mg 500 mg PO DAILY 04/29/20 02/10/22 Unknown History capsule cholecalciferol (vitamin D3) 50 50 mcg PO DAILY 01/18/21 02/10/22 Unknown History mcg (2,000 unit) capsule Exam Exam Date and Time: February 09, 2022 1241 Pertinent Lab Results Pertinent Lab Results: Laboratory Tests 01/12/22 01/12/22 09:36 09:36 WBC 6.6 Hgb 14.4 Hct 43.5 Plt Count 175 Sodium 143 Potassium 3.6 Chloride 102 Carbon Dioxide 29 BUN 22 H Creatinine 0.93 Narrative Narrative: EKG 04/2021 NSR @ 60 ECHO 2020 Conclusions: - 1. Normal LV systolic function with grade 1 diastolic? dysfunction? 2. Normal cardiac valvular Doppler with mild mitral annular? ? ? calcification? 3. Normal RV systolic pressure ? 4. No pericardial effusion ?? Assessment and Plan Assessment Anesthesia Assessment: Chart Reviewed Final Anesthetic Review Family History of Problems with Anesthesia: No History of Problems with Anesthesia: No Documented by User: Adele Mayo MD 02/10/22 07:29 PMFSH Past Medical History Medical History Annual physical exam BPH (benign prostatic hyperplasia) Cataract, left COVID-19 vaccine series completed Essential hypertension GERD (gastroesophageal reflux disease) H/O needle biopsy HTN (hypertension) Hyperlipidemia JAYLA on CPAP Premature atrial contractions Vitamin D deficiency Family History Family History Father No problems noted. Mother No problems noted. Surgical History Surgical History H/O colonoscopy Hx of detached retina repair Social History Social History Housing: House Are you a primary youth care professional to a significant other at home: No Do you presently have visiting nurse or other home services: No Alcohol intake: current Alcohol intake frequency: holidays/special occasions only Patient Tobacco Use Status: Never used Tobacco e-Cigarette/Vaping Use: Never Used Use of substances other than those prescribed or required for medical reasons: No Are you DNR?: No Advance Directives: No Advance Directives Information Provided: Yes Current occupational status: retired Cognitive needs: No Hearing needs: No Vision needs: Yes Meds Allergies Allergy/AdvReac Type Severity Reaction Status Date / Time No Known Allergies Allergy Verified 11/18/21 11:09 Home Medications Medication Instructions Recorded Confirmed Last Taken Type aspirin 81 mg tablet,delayed 81 mg PO DAILY 01/23/20 02/10/22 02/09/22 History release biotin 1 mg tablet 1 mg PO DAILY 01/23/20 02/10/22 Unknown History chlorhexidine gluconate 0.12 % 0.5 ml PO BID 01/23/20 02/10/22 Unknown History mouthwash finasteride 5 mg tablet 5 mg PO BEDTIME 01/23/20 02/10/22 Unknown History multivitamin with iron 1 tab PO DAILY 01/23/20 02/10/22 Unknown History tamsulosin 0.4 mg capsule 0.4 mg PO BEDTIME 01/23/20 02/10/22 Unknown History ascorbic acid (vitamin C) 500 mg 500 mg PO DAILY 04/29/20 02/10/22 Unknown History capsule cholecalciferol (vitamin D3) 50 50 mcg PO DAILY 01/18/21 02/10/22 Unknown History mcg (2,000 unit) capsule Exam Airway Mallampati Class: III (Overbite) TM Dist: >3cm Neck ROM: Full Loose/Missing/Broken Teeth: No Heart: RRR Lungs: CTA Assessment and Plan Assessment Anesthesia Assessment: Anesthesia Plan Discussed Final Anesthetic Review NPO: Yes ASA Class: III Final Preanesthetic Review: Meds/Allgs Chart Reviewed, Consent Obtained/Reviewed and Anes Risks/Benef Reviewed Patient Risk: Intermediate Procedure Risk: Low Anesthetic Plan Anesthetic Plan: MAC: Disposition: Standard PACU
[2022-02-10 06:32] VITALS: BMI 28.0
[2022-02-10 06:37] VITALS: BP 167/62; PULSE 58; RESP 16; TEMP 35.9; O2SAT 96
[2022-02-10] MEDS: Lactated Ringers 1,000 ML 100 ML IVCONT (06:55)
[2022-02-10 08:30] VITALS: BP 135/65; PULSE 52; RESP 20; TEMP 36.2; O2SAT 99
--- NOTE | 2022-02-10 08:31 | P.BOP_ITS ---
Brief Operative Note Date of Service: 02/10/22 Pre-op diagnosis: Screening Post-op diagnosis: other (Polyp) Procedure: Colonoscopy to transverse colon with hot snare polypectomy Surgeon: Luc Pereira Anesthesia: MAC Was an Copier Technician used for this Procedure?: No Estimated blood loss (mL): 2.0 Pathology: other (A. Polyp at 60cm) Condition: stable Disposition: PACU
[2022-02-10 08:49] VITALS: BP 130/65; PULSE 55; RESP 18; TEMP 36.1; O2SAT 97
--- NOTE | 2022-02-10 09:22 | OP_ITS ---
SURGEON: Luc Pereira MD INDICATIONS: The patient presents for followup of personal history of a flat tubular adenoma. Full consent has been obtained from him for this, including risks of bleeding and perforation. PREOPERATIVE DIAGNOSIS: POSTOPERATIVE DIAGNOSIS: PROCEDURE PERFORMED: Colonoscopy to the transverse colon with hot snare polypectomy. ESTIMATED BLOOD LOSS: COMPLICATIONS: ANESTHESIA: Monitored anesthesia care. ASSISTANTS: SPECIMENS: PREOPERATIVE DIAGNOSES: Colorectal cancer screening and personal history of flat tubular adenoma. POSTOPERATIVE DIAGNOSES: Colorectal cancer screening and personal history of flat tubular adenoma, colon polyp, diverticulosis, and internal hemorrhoids. PROCEDURE: The patient was placed in the left lateral decubitus position. The digital rectal exam revealed no abnormalities. The Olympus video pediatric colonoscope was entered into the rectum and advanced easily to the level of the transverse colon. At that point, I opted not to proceed to the cecum since he has had 2 previous colonoscopies within the past year. The scope was slowly withdrawn assessing all mucosal surfaces carefully. Preparation was excellent. At 60 cm, in the area between the previously placed submucosal ink markings, was an approximately 1 cm flat but slightly raised area on a fold consistent with some adenomatous tissue. I did not visualize any other polyp tissue in this area. The polyp was removed with a combination of hot snare polypectomy and cauterization with the tip of the snare. The pieces were recovered by suction. Post-polypectomy, I did not visualize any definitive residual polyp tissue nor any bleeding. The scope was then slowly withdrawn assessing all mucosal surfaces carefully. Preparation was excellent. I did not visualize any other polyps, colitis, nor angiodysplasia. There was a mild amount of sigmoid diverticulosis. In the rectum, scope was retroflexed visualizing some small internal hemorrhoids, but no other pathology. The rectal mucosa appeared normal. The scope was straightened and withdrawn from the patient. He tolerated the procedure well and was returned to the recovery area in stable condition. IMPRESSION: 1. Colon polyp. 2. Diverticulosis. 3. Internal hemorrhoids. PLAN: The results of the pathology will be checked. I would recommend a repeat colonoscopy in 1 year for further surveillance. He was advised not to use any aspirin or NSAIDs for at least 1 week. This has been discussed with his . MD KARTHIK Duke/VIANCA / [id number] [facility]ITAL[facility]go
== END 2022-02-10 09:25 | disposition home or self-care (01) ==
PROVIDERS: PCP Internal Medicine; Visit Provider Internal Medicine
PROC: 0DJD8ZZ Inspection of Lower Intestinal Tract, Via Natural or Artificial Opening Endoscopic (ICD-10-PCS; CPT 45378; principal; 2022-02-10 07:30)
DX: Z12.11 Encounter for screening for malignant neoplasm of colon (principal); Z86.010 Personal history of colon polyps; K57.30 Diverticulosis of large intestine without perforation or abscess without bleeding; K64.8 Other hemorrhoids; I49.1 Atrial premature depolarization; I10 Essential (primary) hypertension; E78.5 Hyperlipidemia, unspecified; G47.33 Obstructive sleep apnea (adult) (pediatric); Z99.89 Dependence on other enabling machines and devices; Z79.82 Long term (current) use of aspirin; Z79.899 Other long term (current) drug therapy
CPT/HCPCS: 45385; 88305

== ENCOUNTER → 2022-06-13 10:15 | Outpatient (BNVA) | payer MEDICARE, BC, SELFPAY | PROVIDERS: PCP Internal Medicine; Referring Provider Internal Medicine; Visit Provider Internal Medicine | DX: I49.8 Other specified cardiac arrhythmias (principal); I10 Essential (primary) hypertension; G47.33 Obstructive sleep apnea (adult) (pediatric); Z99.89 Dependence on other enabling machines and devices | CPT/HCPCS: 93005; 99212 ==

== ENCOUNTER 2023-03-21 09:52 | Outpatient (REF) | payer MEDICARE, BC, SELFPAY ==
[2023-03-21 13:22] LABS: MANUAL DIFF FLAG NO
[2023-03-21 13:32] LABS: Basophils Absolute Auto 0.1 X10*3/uL (0.0-0.2); Basophils Percent Auto 0.7 % (0-2); Eosinophils Absolute Auto 0.5 X10*3/uL (0.0-0.4); Eosinophils Percent Auto 6.5 % (0-4); Hematocrit 46.4 % (42.0-52.0); Hemoglobin 15.2 g/dl (14.0-18.0); Imm Gran Abs Auto 0.01 X10*3/uL (0.00-0.03); Imm Gran Pct Auto 0.1 % (0.0-0.4); Lymphocytes Absolute Auto 1.8 X10*3/uL (1.2-4.9); Lymphocytes Percent Auto 26.3 % (20-40); Mean Corpuscular HGB Conc 32.8 g/dl (31.0-36.0); Mean Corpuscular Volume 88.4 fL (80.0-98.0); Mean Platelet Volume 10.8 fL (9.4-12.4); Monocytes Absolute Auto 0.6 X10*3/uL (0.1-1.2); Monocytes Percent Auto 8.9 % (2-11); Neutrophils Percent Auto 57.5 % (45-73); Platelet Count 204 X10*3/uL (160-400); Red Blood Count 5.25 X10*6/uL (4.60-5.80); Red Cell Distribution Width 12.8 % (11.0-16.0); White Blood Count 6.9 X10*3/uL (4.8-10.8)
[2023-03-21 14:02] LABS: Alanine Aminotransferase 25 U/L (0-40); Albumin Level 4.2 g/dL (3.5-5.0); Alkaline Phosphatase 60 U/L (39-117); Anion Gap 12 (12-20); Aspartate Amino Transferase 25 U/L (5-37); Bilirubin Total 0.8 mg/dL (0.0-1.0); Blood Urea Nitrogen 25 mg/dL (9-16); Calcium 9.3 mg/dL (8.4-10.2); Carbon Dioxide 30 mmol/L (22-29); Chloride 103 mmol/L (96-108); Cholesterol 143 mg/dL (<200); Estimated Glomerular Filt Rate > 60; Glucose Fasting 107 mg/dL (60-99); HDL Cholesterol 55 mg/dL (>40); LDL Cholesterol Calculated 66 mg/dL (<100); Potassium 3.6 mmol/L (3.3-5.1); Sodium 141 mmol/L (135-145); Total Protein 7.3 g/dL (6.5-8.0); Triglycerides 113 mg/dL (<150)
[2023-03-21 14:20] LABS: Vitamin D 25-OH Total 55.2 ng/mL (>30)
== END 2023-03-21 09:53 | disposition home or self-care (01) ==
LOC: HO.HMGCLDS 09:52
PROVIDERS: PCP Internal Medicine; Visit Provider Internal Medicine
DX: Z00.00 Encounter for general adult medical examination without abnormal findings (principal); I10 Essential (primary) hypertension; E55.9 Vitamin D deficiency, unspecified; E78.5 Hyperlipidemia, unspecified
CPT/HCPCS: 36415; 80053; 80061; 82306; 85025

== ENCOUNTER 2023-03-27 11:26 | Outpatient (AMB) | payer MEDICARE, BC, SELFPAY ==
[2023-03-27 11:44] VITALS: BP 136/72; PULSE 58; O2SAT 98; BMI 25.7
--- NOTE | 2023-03-27 11:44 | A.OFFVIS_ITS ---
Intake Vital Signs 03/27/23 11:44 Height 5 ft 9 in Weight 174 lb BMI 25.7 BP 136/72 Blood Pressure Location Lt brachial Position Sitting Pulse 58 Pulse Source Pulse Oximeter Pulse Oximetry (%) 98 Oxygen Delivery Method Room Air Intake Visit Reasons: V G0439 Allergies No Known Allergies Allergy (Verified 03/27/23 11:56) Medication List - Last Reconciled 03/27/23 by Karen Charles MD amlodipine 5 mg PO DAILY ascorbic acid (vitamin C) 500 mg PO DAILY biotin 1 mg PO DAILY chlorhexidine gluconate 0.12% 0.5 mL PO BID cholecalciferol (vitamin D3) 50 mcg PO DAILY finasteride 5 mg PO BEDTIME fluticasone propionate 50 mcg/actuation 1 spray intranasal DAILY multivitamin with iron 1 tab PO DAILY simvastatin 40 mg PO QPM tamsulosin 0.4 mg PO BEDTIME HPI SWV G0439 HPI Details Pt presents for PE.Initiated the conversation about Advanced Directives. Advanced Directives help? patients prepare for current and future decisions about their medical treatment? and place of care. Discussed with patient that it is a process where a patients? current condition and prognosis are reviewed, their wishes for information? regarding their illness are elicited, and likely medical dilemmas are presented? and options discussed. The form can be amended as needed, reviewed yearly and? make changes as needed IPPE/AWV ? year old presents? for her ? Annual? Wellness Visit, initial visit.? Medical / Social History Reviewed? Past Medical History ?Yes? . ? [place]? of Care / Care Team list updated ?Yes . ? Surgical/Hospitalization? History ?Yes . ? Current Medications? (including OTC and supplements) ?Yes . ? Family History ?Yes? . ? Tobacco? Control form ?Yes . ? AUDIT-C (Alcohol use) form? ?Yes . ? Illicit drug use in Social? History ?Yes . ? Current diagnosis of? depression? ?No ? Appropriate PHQ2/PHQ9? completed ?Yes . ? Data entered by ?Medical? [employer] and reviewed by provider ? Fall Risk ? Fall? History? Have you had any falls with? injury in the past year? ?No . ? Have you had two or more? falls in the past year? ?No . ? Fall Risk Assessment: ?No? falls in the past year . ? HRA filled out by? the patient, reviewed by Provider and scanned. ? IPPE/AWV ? Balance? [place]berg? ?Yes . ? Tandem? walk ?Yes . ? Walk and? Turn ?Yes . ? Rise from? sit to stand ?Yes . ?Vision? Corrective? lens ?Yes ? Vision? screen ? Up-to-date, has an appointment [] for vision? screening and glaucoma screening ?Hearing? Whisper? test ?pass .? Initiated the conversation about Advanced Directives. Advanced Directives help? patients prepare for current and future decisions about their medical treatment? and place of care. Discussed with patient that it is a process where a patients? current condition and prognosis are reviewed, their wishes for information? regarding their illness are elicited, and likely medical dilemmas are presented? and options discussed. The form can be amended as needed, reviewed yearly and? make changes as needed Written? Plan?Completed. See Patient? Documents. [facility] Medical History (Updated 03/27/23 @ 12:31 by Karen Charles MD) Cataract, left Vitamin D deficiency Annual physical exam COVID-19 vaccine series completed Premature atrial contractions Essential hypertension BPH (benign prostatic hyperplasia) HTN (hypertension) H/O needle biopsy GERD (gastroesophageal reflux disease) JAYLA on CPAP Hyperlipidemia Surgical History (Updated 06/13/22 @ 10:35 by Aster Estrada) Hx of wisdom tooth extraction Hx of detached retina repair H/O colonoscopy Family History Father No problems noted. Mother No problems noted. Social History Housing: House Are you a primary foster care case manager to a significant other at home: No Do you presently have visiting nurse or other home services: No Alcohol intake: current Alcohol intake frequency: holidays/special occasions only Patient Tobacco Use Status: Never used Tobacco e-Cigarette/Vaping Use: Never Used Current occupational status: retired Cognitive needs: No Hearing needs: No Vision needs: Yes Questionnaire Medicare Wellness Checkup [age] What gender do you identify with?: male During the past 4 weeks, how much have you been bothered by emotional problems such as feeling anxious, depressed, irritable, sad or downhearted, and blue?: not at all During the past 4 weeks, has your physical & emotional health limited your social activities with family, friends, neighbors, or groups?: not at all During the past 4 weeks, how much bodily pain have you generally had?: very mild pain During the past 4 weeks, was someone available to help you if you needed & wanted help?: yes, as much as I wanted During the past 4 weeks, what was the hardest physical activity you could do for at least 2 minutes?: heavy Can you get to places out of walking distance without help? (For eg., can you travel alone on buses, taxis or drive your car?): Yes Can you go shopping for groceries or clothes without someone's help?: Yes Can you prepare your own meals?: Yes Can you do your housework without help?: Yes Because of any health problems, do you need the help of another person with your personal care needs such as eating, bathing, dressing or getting around the house?: No Can you handle your own money without help?: Yes During the past 4 weeks, how would you rate your health in general?: very good During the past 4 weeks how have things been going for you?: very well; could hardly better Are you having difficulties driving your car?: no Do you always fasten your seat belt when you are in a car?: yes, usually During past 4 weeks, have you been bothered by the following: never: Falling or dizzy when standing up, Sexual problems?, Trouble eating well?, Teeth or denture problems? and Problems using the telephone? and sometimes: Tiredness or fatigue? Have you fallen 2 or more times in the past year?: No Are you afraid of falling?: No Are you a smoker?: no During the past 4 weeks, how many drinks of wine, beer, or other alcoholic beverages did you have?: 1 drink or less per week Do you exercise for about 20 minutes 3 or more times a week?: no, I usually do not exercise this much Have you been given information to help with the following?: no: Hazards in your house that might hurt you? and no: Keeping track of your medications? How often do you have trouble taking medicines the way you have been told to take them?: I always take medicine as prescribed How confident are you that you can control & manage most of your health problems?: very confident What is your race?: White Mini Mental State Exam (MMSE) Orientation What is the (year) (season) (date) (day) (month)?: year, season, date, day and month Where are we (state) (county) (town or city) (hospital) (floor)?: state, county, town or city, hospital/clinic and floor Registration Name of 3 unrelated objects clearly and slowly, then ask patient to repeat all 3 of them. (1st repeat determines score. Make sure they can repeat all three): object 1, object 2 and object 3 Attention & Calculation (CHOOSE ONE) Spell WORLD backwards (DLROW): 5 letters Recall Ask patient to repeat the 3 items from question #3.: object 1, object 2 and object 3 Language Show patient a wristwatch & ask what it is. Repeat for pencil.: watch and pencil Ask the patient to repeat the phrase 'No ifs, ands, or buts' after you.: correct Ask the patient to 'take a piece of paper with their right hand' 'fold paper in half' 'place paper on floor': take paper in right hand, fold paper in half and place paper on floor Print the sentence 'CLOSE YOUR EYES' on a piece. If patient actually closes eyes then score.: followed written direction Give patient a blank piece of paper & ask to write a sentence. Score if it contains a noun & verb.: sentence contains subject and verb Score Score: 29 Activity of Daily Living Bathing - sponge bath, tub bath or shower: receives no assistance (gets in/out by self, if usual bathing means Dressing - getting clothes from closets & drawers, including inner/outer garments & fasteners.: gets clothes & gets completely dressed without help Toileting - going to the 'toilet room' for urine/bowel elimination & cleaning self/arranging clothes: goes to toilet room, cleans self, arranges clothes without help Transfer: moves in & out of bed and chair without help (may use support object) Continence: controls urination/bowel movements completely by self Feeding: feeds self without help Total Score: 0 Information obtained from: patient Using telephone: independent Traveling: independent Shopping: independent Preparing meals: independent Housework: independent Taking medicine: independent Managing money: independent PHQ-9 Over the last 2 weeks, how often have you been bothered by any of the following problems? 1. Little interest or pleasure in doing things: not at all 2. Feeling down, depressed, or hopeless: not at all 3. Trouble falling or staying asleep, or sleeping too much: not at all 4. Feeling tired or having little energy: not at all 5. Poor appetite or overeating: not at all 6. Feeling bad about yourself - or that you are a failure or have let yourself or your family down: not at all 7. Trouble concentrating on things, such as reading the newspaper or watching television: not at all 8. Moving or speaking so slowly that other people could have noticed. Or the opposite - being so fidgety or restless that you have been moving around a lot more than usual: not at all 9. Thoughts that you would be better off or of hurting yourself in some way: not at all Total score: 0 Depression Screening Interpretation: Negative Depression Screening Done: Yes Source: Developed by Drs. Luc Dover, Perla Morataya, Abraham Love and colleagues, with an educational luis from [employer]. Review of Systems Const All systems reviewed & are unremarkable except as noted in HPI and below Reports no additional complaints Eyes Reports no additional complaints ENT Reports no additional complaints Card Reports no additional complaints Resp Reports no additional complaints GI Reports no additional complaints Reports no additional complaints Physical Exam Vital Signs: Last Vital Signs Pulse 58 03/27/23 11:44 BP 136/72 03/27/23 11:44 Pulse Ox 98 03/27/23 11:44 Oxygen Delivery Method Room Air 03/27/23 11:44 BMI result Body Mass Index 25.7 Const General: no acute distress HEENT Head: Yes normal to inspection Ears: hearing grossly normal bilaterally Eyes General: appearance normal, both eyes and all related structures Neck Neck: Yes no lymphadenopathy and Yes supple Resp Effort & Inspection: normal respiratory effort Auscultation: clear to auscultation bilaterally Cardio Rhythm: regular rhythm Heart sounds: S1 normal heart sound present and S2 normal heart sound present GI Inspection: Yes normal to inspection Palpation (GI): Soft to palpation Percussion: Yes normal to percussion Auscultation: normal bowel sounds Extrem General: Yes no clubbing, cyanosis or edema Assessment & Plan Assessment & Plan (1) HTN (hypertension): Code(s): I10 - Essential (primary) hypertension Plan: Continue Amlodipine (2) Hyperlipidemia: Code(s): E78.5 - Hyperlipidemia, unspecified Plan: cont statin (3) Annual physical exam: Code(s): Z00.00 - Encounter for general adult medical examination without abnormal findin gs Plan: Well-balanced diet regular physical activity discussed with the patient. He is up-to-date with colonoscopy (4) Shoulder pain, right: Code(s): M25.511 - Pain in right shoulder Plan: For chronic right shoulder pain patient will try physical therapy Orders: Orders PT Evaluation and Treatment Today M25.511 - Pain in right shoulder Quality Reporting (2019) Depression/Bipolar (159/160/161/177) PHQ-9: Total score: 0 Coding Level of Care Code Medicare Subsequent (G0439) Diagnoses HTN (hypertension) I10 Hyperlipidemia E78.5 Annual physical exam Z00.00 Shoulder pain, right M25.511 CPT Codes Advance Care Planning - Time spent: 1-15 minutes, not on file ([id number]) Advance Care Planning Advance Care Planning discussion: Exists, not on file Forms completed: Health Care Proxy Time spent: 1-15 minutes, not on file
== END 2023-03-27 12:40 | disposition home or self-care (01) ==
PROVIDERS: PCP Internal Medicine; Visit Provider Internal Medicine
DX: I10 Essential (primary) hypertension (principal); E78.5 Hyperlipidemia, unspecified; Z00.00 Encounter for general adult medical examination without abnormal findings; M25.511 Pain in right shoulder
CPT/HCPCS: 1124F; G0439

== ENCOUNTER 2023-05-15 11:00 | Outpatient (RCR) | payer MEDICARE, BC, SELFPAY ==
--- NOTE | 2023-04-03 10:44 | MHC.PT.EP ---
[facility] [place] Office [place] Office [place] Office [address] [employer] [employer] [address] [phone] F: [phone] F: [phone] F: [phone] F: [phone] Physical Therapy Plan of Care Date of Evaluation: 04/03/23 Date of Surgery: n/a Diagnosis: pain in R shoulder Assessment: Patient is a 77 year old male presenting to PT with complaints of pain in his R shoulder. Pt reports onset of pain began about 4 months ago due to insidious onset. He presents today with impairments in pain, ROM, shoulder strength, and posture. 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 Clinical presentation today is most consistent with signs and sx associated with R shoulder pain and pt will benefit from skilled PT 2 week x 4 weeks to address the following problems and impairments noted upon evaluation: pain, ROM, shoulder strength, and posture. 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 The prescribed treatment plan of care is medically necessary. Co-morbidities of HTN, premature atrial contractions were identified and taken into considerations of plan of care. Pt was educated on HEP, role of PT, prognosis, POC. Frequency and Duration: The patient will be seen 2 x week x 4 weeks Short Term Goals: Pt will demonstrate improved shoulder ROM equal with min to no pain in 2 weeks. Pt will demonstrate improved R shoulder MMT strength by 1/3 grade in 2 weeks. Pt will demonstrate improved postural awareness by sitting with biomechanically correct posture without cues throughout session to improve overall postural function in 2 weeks. Group Home Goals: Pt will demonstrate improved SPADI score by 13 points in 4 weeks for improved functional mobility. Pt will demonstrate ability to lift and carry with min to no pain in 4 weeks for improved tolerance to sunglass clip attacher. Pt will demonstrate ability reach with min to no pain in 4 weeks for return to PLOF. Treatment Plan: Modalities to reduce pain, spasms and effusion. Manual therapy to restore motion and function. Therapeutic exercise to improve strength and flexibility. Neuromuscular re-education for posture and balance. Therapeutic activities to return to functional activities of daily living. Electronically signed by: Chantal Solano, PT, DPT, ATC Please sign and return to therapist. Thank you for your referral.
--- NOTE | 2023-06-15 13:30 | MHC.PT.DC ---
[facility] [place] Office [place] Office [place] Office [address] [phone] F: [phone] F: [phone] F: [phone] F: [phone] Physical Therapy Discharge Report Diagnosis: pain in R shoulder Date of Surgery: n/a Date of Evaluation: 04/03/23 Date of Discharge: 06/15/23 Treatments to Date: 7 Cancellations to Date: 0 No Shows to Date: 0 Discharge Status: Improved Function Independent with HEP Discharge Summary: Pt had been placed on 30 day hold. He has not reached out to be rescheduled in 30 days so therefore to be d/c. Electronically signed by: Chantal Solano, PT, DPT, ATC Please sign and return to therapist. Thank you for your referral.
== END 2023-06-15 13:30 | disposition home or self-care (01) ==
LOC: HO.PTCHIC 11:00
PROVIDERS: PCP Internal Medicine; Visit Provider Internal Medicine
DX: M25.511 Pain in right shoulder (principal)
CPT/HCPCS: 97110; 97161

== ENCOUNTER 2023-06-26 10:22 | Outpatient (AMB) | payer MEDICARE, BC, SELFPAY ==
[2023-06-26 10:48] VITALS: BP 128/72; PULSE 57; O2SAT 98; BMI 25.7
--- NOTE | 2023-06-26 10:48 | MHC.OFFVIS ---
Vital Signs 06/26/23 10:48 Height 5 ft 9 in Weight 174 lb BMI 25.7 BP 128/72 Blood Pressure Location Lt brachial Position Sitting Pulse 57 Pulse Source Monitor Pulse Oximetry (%) 98 Oxygen Delivery Method Room Air Intake Visit Reasons: 1 year follow-up with ekg Allergies No Known Allergies Allergy (Verified 03/27/23 11:56) Medication List - Last Reconciled 06/26/23 by Jeb Haque MD amlodipine 5 mg PO DAILY ascorbic acid (vitamin C) 500 mg PO DAILY biotin 1 mg PO DAILY chlorhexidine gluconate 0.12% 0.5 mL PO BID cholecalciferol (vitamin D3) 50 mcg PO DAILY finasteride 5 mg PO BEDTIME fluticasone propionate 50 mcg/actuation 1 spray intranasal DAILY multivitamin with iron 1 tab PO DAILY simvastatin 40 mg PO QPM tamsulosin 0.4 mg PO BEDTIME HPI Comments Details: Kurtis returns for follow-up regarding atrial arrhythmias. He has a history of frequent PACs. Tried beta-blockers but had some nonspecific had effects and stopped. Then diagnosed to have obstructive sleep apnea and started using CPAP. Overall, feeling substantially better. Also started on Norvasc for hypertension. Since last seen, no new complaints. Feeling very good. Absolutely no cardiac symptoms. [facility] Medical History (Updated 03/27/23 @ 12:31 by Karen Charles MD) Cataract, left Vitamin D deficiency Annual physical exam COVID-19 vaccine series completed Premature atrial contractions Essential hypertension BPH (benign prostatic hyperplasia) HTN (hypertension) H/O needle biopsy GERD (gastroesophageal reflux disease) JAYLA on CPAP Hyperlipidemia Surgical History (Updated 06/13/22 @ 10:35 by Aster Estrada) Hx of wisdom tooth extraction Hx of detached retina repair H/O colonoscopy Family History Father No problems noted. Mother No problems noted. Social History Housing: House Are you a primary out of school hours care worker to a significant other at home: No Do you presently have visiting nurse or other home services: No Alcohol intake: current Alcohol intake frequency: holidays/special occasions only Patient Tobacco Use Status: Never used Tobacco e-Cigarette/Vaping Use: Never Used Current occupational status: retired Cognitive needs: No Hearing needs: No Vision needs: Yes Review of Systems Const Denies weakness ENT Denies dizziness Card Denies chest pain, Denies chest pain with activity, Denies syncope, Denies rapid heart rate, Denies pedal edema, Denies edema, Denies leg edema, Denies lightheadedness, Denies palpitations, Denies dyspnea, Denies dyspnea on exertion and Denies orthopnea Resp Denies cough, Denies dyspnea and Denies dyspnea on exertion GI Denies hematochezia and Denies change in stool character Musc Denies abnormal gait, Denies muscle cramps, Denies muscle weakness, Denies numbness, Denies radiating pain into limb and Denies tingling Neuro Denies abnormal gait, Denies dizziness, Denies syncope, Denies numbness, Denies tingling and Denies weakness Endo Denies palpitations Physical Exam Vital Signs: Last Vital Signs Pulse 57 06/26/23 10:48 BP 128/72 06/26/23 10:48 Pulse Ox 98 06/26/23 10:48 Oxygen Delivery Method Room Air 06/26/23 10:48 BMI result Body Mass Index 25.7 Const General: comfortable and no acute distress Orientation/consciousness: patient oriented x3 HEENT Other: Unremarkable Head: Yes normal to inspection Neck Neck: Yes normal visual inspection Chest Chest palpation & inspection: normal inspection of the chest Resp Auscultation: clear to auscultation bilaterally Cardio Palpation: normal PMI Heart sounds: S1 normal heart sound present, S2 normal heart sound present, no gallops, no murmurs and no rubs GI Palpation (GI): Soft to palpation Back/Spine/Pelvis Other: unremarkable Skin General skin exam: no rashes or lesions noted Neuro General: patient oriented x3 Extrem General: Yes normal to inspection Psych Mental Status: mental status grossly normal Office Procedures EKG Details: EKG with sinus bradycardia at 54/Min; nonspecific ST-T changes; [place]. [id number], Complete Assessment & Plan Assessment & Plan (1) Atrial arrhythmia: Code(s): I49.8 - Other specified cardiac arrhythmias Category: Medical Plan: Improved after treatment of obstructive sleep apnea. No specific management at this time. In the last Holter however, there is no significant ectopy at all. (2) Essential hypertension: Code(s): I10 - Essential (primary) hypertension Category: Medical Plan: Stable. Continue Amlodipine. (3) JAYLA on CPAP: Code(s): G47.33 - Obstructive sleep apnea (adult) (pediatric); Z99.89 - Dependence on other enabling machines and devices Category: Medical Plan: Continue CPAP.
== END 2023-06-26 11:05 | disposition home or self-care (01) ==
LOC: HO.HCS 10:22
PROVIDERS: PCP Internal Medicine; Visit Provider Internal Medicine
DX: I49.8 Other specified cardiac arrhythmias (principal); I10 Essential (primary) hypertension; G47.33 Obstructive sleep apnea (adult) (pediatric); Z99.89 Dependence on other enabling machines and devices
CPT/HCPCS: 93010; 99213

== ENCOUNTER → 2023-06-26 10:22 | Outpatient (BNVA) | payer MEDICARE, BC, SELFPAY | PROVIDERS: PCP Internal Medicine; Visit Provider Internal Medicine | DX: I49.8 Other specified cardiac arrhythmias (principal); I10 Essential (primary) hypertension; G47.33 Obstructive sleep apnea (adult) (pediatric); Z99.89 Dependence on other enabling machines and devices | CPT/HCPCS: 93005; 99212 ==

== ENCOUNTER 2023-08-01 13:23 | Outpatient (AMB) | payer MEDICARE, BC, SELFPAY ==
[2023-08-01 13:42] VITALS: BP 122/64; PULSE 54; O2SAT 96; BMI 25.7
--- NOTE | 2023-08-01 13:42 | MHC.PC.OV ---
Vital Signs 08/01/23 13:42 Height 5 ft 9 in Weight 174 lb BMI 25.7 BP 122/64 Blood Pressure Location Rt brachial Position Sitting Pulse 54 Pulse Source Pulse Oximeter Pulse Oximetry (%) 96 Oxygen Delivery Method Room Air Intake Visit Reasons: Pre op cataract surgery on 08/16/23 Intake Note: Pt is here today for pre op visit. Pt is having cataract surgery R eye on 08/16/[address] Carrillo. Allergies No Known Allergies Allergy (Verified 08/01/23 13:48) Tobacco use date assessed: 08/01/23 Fall risk assessment: No Falls in past year Last assessed Fall Risk: 08/01/23 Dental Screening Dental Screen Date: 08/01/23 Did you have a dental visit in the last 12 months?: Yes Did you have a dental problem in the last 6 months where you did not have access to dental care?: No Was dental information given to patient?: Patient has dentist HPI Pre op cataract surgery on 08/16/23 HPI Details Pt presents for preop for cataract surgery. HTN, hyperlipid, are controlled on current medications [facility] Medical History Cataract, left Vitamin D deficiency Annual physical exam COVID-19 vaccine series completed Premature atrial contractions Essential hypertension BPH (benign prostatic hyperplasia) HTN (hypertension) H/O needle biopsy GERD (gastroesophageal reflux disease) JAYLA on CPAP Hyperlipidemia Surgical History Hx of wisdom tooth extraction Hx of detached retina repair H/O colonoscopy Family History Father No problems noted. Mother No problems noted. Social History Housing: House Are you a primary healthcare network pricing consultant to a significant other at home: No Do you presently have visiting nurse or other home services: No Alcohol intake: current Alcohol intake frequency: holidays/special occasions only Patient Tobacco Use Status: Never used Tobacco e-Cigarette/Vaping Use: Never Used service: Yes Current occupational status: retired Cognitive needs: No Hearing needs: No Vision needs: Yes Questionnaire Thrive Questionnaire Date Thrive assessed: 01/18/21 AUDIT C Alcohol Use Questionnaire (AUDIT-C) 1. How often do you have a drink containing alcohol?: Monthly or less 2. How many drinks containing alcohol do you have on a typical day when you are drinking?: 1 or 2 3. How often do you have six or more drinks on one occasion?: Never Total Score: 1 HIRAM-7 AMB Questionnaire HIRAM-7 Date HIRAM - 7 assessed: 01/18/21 Source: Developed by Drs. Luc Dover, Perla Morataya, Abraham Love and colleagues, with an educational luis from [employer]. Review of Systems Const All systems reviewed & are unremarkable except as noted in HPI and below ENT Reports no additional complaints Card Reports no additional complaints Resp Reports no additional complaints GI Reports no additional complaints Reports no additional complaints Physical exam (Primary Care) Vital Signs: Last Vital Signs Pulse 54 08/01/23 13:42 BP 122/64 08/01/23 13:42 Pulse Ox 96 08/01/23 13:42 Oxygen Delivery Method Room Air 08/01/23 13:42 BMI result Body Mass Index 25.7 Tobacco/Smoking Status: Tobacco use Status Tobacco use date assessed 08/01/23 08/01/23 13:52 Patient Tobacco Use Status Never used Tobacco 08/01/23 13:52 e-Cigarette/Vaping Use Never Used 08/01/23 13:43 Thrive Assessment: Date of Thrive Assessment Date Thrive assessed 01/18/21 08/01/23 13:43 Const General: no acute distress HENMT Head: Yes normal to inspection Eyes General: appearance normal, both eyes and all related structures Neck Neck: Yes supple Resp Effort & Inspection: normal respiratory effort Auscultation: clear to auscultation bilaterally Cardio Rhythm: regular rhythm Heart sounds: S1 normal heart sound present and S2 normal heart sound present GI Inspection: Yes normal to inspection Palpation (GI): Soft to palpation Percussion: Yes normal to percussion Auscultation: normal bowel sounds Assessment and Plan Assessment & Plan (1) Essential hypertension: Code(s): I10 - Essential (primary) hypertension Plan: Continue current medications (2) Hyperlipidemia: Code(s): E78.5 - Hyperlipidemia, unspecified Plan: Continue statin (3) Cataract: Code(s): H26.9 - Unspecified cataract Plan: Patient is cleared for cataract surgery Coding Level of Care Code Est Pt Level 4 (15448) Diagnoses Essential hypertension I10 Hyperlipidemia E78.5 Cataract H26.9
== END 2023-08-01 14:12 | disposition home or self-care (01) ==
PROVIDERS: PCP Internal Medicine; Visit Provider Internal Medicine
DX: I10 Essential (primary) hypertension (principal); E78.5 Hyperlipidemia, unspecified; H26.9 Unspecified cataract
CPT/HCPCS: 99214

== ENCOUNTER 2024-02-07 06:22 | Day surgery (SDC) | payer MEDICARE, BC, SELFPAY ==
[2024-02-05 14:31] VITALS: BMI 25.7
[2024-02-07 06:29] VITALS: BMI 25.1
[2024-02-07 06:43] VITALS: BP 150/67; PULSE 50; RESP 16; TEMP 35.8; O2SAT 98
[2024-02-07] MEDS: Lactated Ringers 1,000 ML 100 ML IVCONT (06:51)
--- NOTE | 2024-02-07 07:20 | HO.ANESPROP2 ---
Documented by User: Dottie Bangura NP 02/06/24 11:53 HPI - Anesthesia Eval Consult details Narrative: 78yo M for Colonoscopy PMFSH Active Problems Active Problems: All Active Problems Shoulder pain, right (Acute) Cataract (Acute) Fatigue (Acute) Atrial arrhythmia (Acute) Vitamin D deficiency (Acute) Annual physical exam (Acute) Hyperlipidemia (Acute) JAYLA on CPAP (Acute) Essential hypertension (Acute) BPH (benign prostatic hyperplasia) (Acute) HTN (hypertension) (Acute) Past Medical History Medical History Vitamin D deficiency Premature atrial contractions Essential hypertension BPH (benign prostatic hyperplasia) HTN (hypertension) H/O needle biopsy GERD (gastroesophageal reflux disease) JAYLA on CPAP Hyperlipidemia Family History Family History Father No problems noted. Mother No problems noted. Family history of problems with anesthesia: No Surgical History Surgical History Hx of bilateral cataract extraction Hx of wisdom tooth extraction Hx of detached retina repair H/O colonoscopy History of Problems with Anesthesia: No Social History Social History Housing: House Are you a primary career services officer to a significant other at home: No Do you presently have visiting nurse or other home services: No Alcohol intake: current Alcohol intake frequency: holidays/special occasions only Patient Tobacco Use Status: Never used Tobacco e-Cigarette/Vaping Use: Never Used Use of substances other than those prescribed or required for medical reasons: No Have you been hit, kicked, punched, or otherwise hurt by someone within the past year? If so, by whom?: No Are you DNR?: No Advance Directives: No Advance Directives Information Provided: Yes Recently lost weight without trying: No Nutrition Risks: No Nutritional Risk Poor oral hygiene: No service: Yes Current occupational status: retired Cognitive needs: No Hearing needs: No Vision needs: Yes Meds Allergies Allergy/AdvReac Type Severity Reaction Status Date / Time No Known Allergies Allergy Verified 08/01/23 13:48 Home Medications ?Medication ?Instructions ?Recorded ?Confirmed ?Last Taken ?Type biotin 1 mg tablet 1 mg PO DAILY 01/23/20 02/05/24 Unknown History chlorhexidine gluconate 0.12 % 0.5 ml PO BID 01/23/20 02/05/24 Unknown History mouthwash finasteride 5 mg tablet 5 mg PO BEDTIME 01/23/20 02/05/24 Unknown History multivitamin with iron 1 tab PO DAILY 01/23/20 02/05/24 Unknown History tamsulosin 0.4 mg capsule 0.4 mg PO BEDTIME 01/23/20 02/05/24 Unknown History ascorbic acid (vitamin C) 500 mg 500 mg PO DAILY 04/29/20 02/05/24 Unknown History capsule cholecalciferol (vitamin D3) 50 50 mcg PO DAILY 01/18/21 02/05/24 Unknown History mcg (2,000 unit) capsule Exam Height,Weight and Vital Signs: Height 5 ft 8.25 in Weight 77.111 kg Assessment and Plan Assessment Anesthesia Assessment: Chart Reviewed Final Anesthetic Review Family History of Problems with Anesthesia: No History of Problems with Anesthesia: No Documented by User: Lori Paulson DO 02/07/24 07:24 [facility] [place] Past Medical History Medical History Vitamin D deficiency Premature atrial contractions Essential hypertension BPH (benign prostatic hyperplasia) HTN (hypertension) H/O needle biopsy GERD (gastroesophageal reflux disease) JAYLA on CPAP Hyperlipidemia Family History Family History Father No problems noted. Mother No problems noted. Family history of problems with anesthesia: No Surgical History Surgical History Hx of bilateral cataract extraction Hx of wisdom tooth extraction Hx of detached retina repair H/O colonoscopy History of Problems with Anesthesia: No Social History Social History Housing: House Are you a primary career services officer to a significant other at home: No Do you presently have visiting nurse or other home services: No Alcohol intake: current Alcohol intake frequency: holidays/special occasions only Patient Tobacco Use Status: Never used Tobacco e-Cigarette/Vaping Use: Never Used Use of substances other than those prescribed or required for medical reasons: No Have you been hit, kicked, punched, or otherwise hurt by someone within the past year? If so, by whom?: No Are you DNR?: No Advance Directives: No Advance Directives Information Provided: Yes Recently lost weight without trying: No Nutrition Risks: No Nutritional Risk Poor oral hygiene: No service: Yes Current occupational status: retired Cognitive needs: No Hearing needs: No Vision needs: Yes Meds Allergies Allergy/AdvReac Type Severity Reaction Status Date / Time No Known Allergies Allergy Verified 08/01/23 13:48 Home Medications ?Medication ?Instructions ?Recorded ?Confirmed ?Last Taken ?Type biotin 1 mg tablet 1 mg PO DAILY 01/23/20 02/05/24 Unknown History chlorhexidine gluconate 0.12 % 0.5 ml PO BID 01/23/20 02/05/24 Unknown History mouthwash finasteride 5 mg tablet 5 mg PO BEDTIME 01/23/20 02/05/24 Unknown History multivitamin with iron 1 tab PO DAILY 01/23/20 02/05/24 Unknown History tamsulosin 0.4 mg capsule 0.4 mg PO BEDTIME 01/23/20 02/05/24 Unknown History ascorbic acid (vitamin C) 500 mg 500 mg PO DAILY 04/29/20 02/05/24 Unknown History capsule cholecalciferol (vitamin D3) 50 50 mcg PO DAILY 01/18/21 02/05/24 Unknown History mcg (2,000 unit) capsule Exam Exam Date and Time: 02/07/24 0720 Height,Weight and Vital Signs: Height 5 ft 8.25 in Weight 77.111 kg Vital Signs Temperature 96.5 F L 02/07/24 06:43 Pulse Rate 50 02/07/24 06:43 Respiratory Rate 16 02/07/24 06:43 Blood Pressure 150/67 H 02/07/24 06:43 Pulse Oximetry 98 02/07/24 06:43 Oxygen Delivery Method Room Air 02/07/24 06:43 Temperature 96.5 F L 02/07/24 06:43 Pulse Rate 50 12/04/24 06:43 Respiratory Rate 16 02/07/24 06:43 Blood Pressure 150/67 H 02/07/24 06:43 Pulse Oximetry 98 02/07/24 06:43 Oxygen Delivery Method Room Air 02/07/24 06:43 Airway Mallampati Class: II TM Dist: >3cm Neck ROM: Full Loose/Missing/Broken Teeth: No (patient denies any loose or broken teeth) Heart: S1S2 Lungs: CTAB Assessment and Plan Assessment Anesthesia Assessment: Anesthesia Plan Discussed and Chart Reviewed Final Anesthetic Review Family History of Problems with Anesthesia: No History of Problems with Anesthesia: No NPO: Yes ASA Class: II Final Preanesthetic Review: No Changes in Pt Med Stat, Meds/Allgs Chart Reviewed, Consent Obtained/Reviewed and Anes Risks/Benef Reviewed Patient Risk: Low Procedure Risk: Low Anesthetic Plan Anesthetic Plan: MAC: and Agree w/ Assess. and Plan Disposition: Standard PACU
[2024-02-07 08:35] VITALS: BP 107/56; PULSE 48; RESP 16; TEMP 36.3; O2SAT 98
--- NOTE | 2024-02-07 08:39 | PM.OP ---
Brief Operative Note Date of Service: 02/07/24 Pre-op diagnosis: Screening Post-op diagnosis: other (Diverticulosis) Procedure: Colonoscopy to the cecum Surgeon: Luc Pereira MD Anesthesia: MAC Was an Metaphysicist used for this Procedure?: No Estimated blood loss (mL): 0 Pathology: none sent Condition: stable Disposition: PACU
[2024-02-07 08:50] VITALS: BP 111/51; PULSE 64; RESP 16; TEMP 36.1; O2SAT 96
--- NOTE | 2024-02-07 10:13 | OP_ITS ---
DATE OF SERVICE: 02/07/2024 SURGEON: Luc Pereira MD INDICATIONS: The patient presents for followup of personal history of tubular adenoma of the colon and colorectal cancer screening. Full consent has been obtained from him for this including risks of bleeding and perforation. PREOPERATIVE DIAGNOSIS: POSTOPERATIVE DIAGNOSIS: PROCEDURE PERFORMED: Colonoscopy to cecum. ESTIMATED BLOOD LOSS: COMPLICATIONS: ANESTHESIA: Monitored anesthesia care. ASSISTANTS: SPECIMENS: PREOPERATIVE DIAGNOSES: Colorectal cancer screening and personal history of tubular adenoma of the colon. POSTOPERATIVE DIAGNOSES: Colorectal cancer screening and personal history of tubular adenoma of the colon, diverticulosis, internal hemorrhoids. DESCRIPTION OF PROCEDURE: The patient was placed in the left lateral decubitus position. The digital rectal exam revealed no abnormalities. The Olympus video pediatric colonoscope was entered into the rectum and advanced easily to the cecum. Once in the cecum, I did identify normal-appearing cecal pouch with appendiceal orifice and a normal-appearing ileocecal valve. The entire cecum and ileocecal valve appeared normal. The scope was then slowly withdrawn assessing all mucosal surfaces carefully. Preparation was excellent. I did not visualize any sign of polyps, colitis, nor angiodysplasias. The 2 previously placed submucosal ink gomez at approximately 60 cm were well visualized. I did not visualize any sign of residual polyp tissue between the ink gomez or anywhere in that vicinity. There was a mild amount of sigmoid diverticulosis. There were also several diverticula noted in the ascending colon. In the rectum, scope was retroflexed visualizing internal hemorrhoids, but no other pathology. The rectal mucosa appeared normal. The scope was straightened and withdrawn from the patient. He tolerated the procedure well and was returned to recovery area in stable condition. IMPRESSION: 1. Diverticulosis. 2. Internal hemorrhoids. 3. No sign of residual polyp at area of previous polypectomy and submucosal ink gomez. PLAN: Overall, I would recommend a repeat colonoscopy in 2-3 years for further screening and surveillance. At that point, he would be just about 81 years old and we would need to take his clinical condition to account. He will otherwise see me on a p.r.n. basis. This has been discussed with his . MD KARTHIK Duke/VIANCA / [phone]
--- OUTSIDE RECORDS SUMMARY | 2024-02-13 16:10 | XMS_ITS ---
Author Organization [facility] Address [address] [place] [address] Care Team Providers Care Health Services Coordinator Name Role Phone Karen Charles MD Primary Care Provider Unavaila Luc Becerra [phone] REASON FOR VISIT screening,hx polyps Encounters Encounter Location Date Provider Diagnosis [facility] [place] Out[place] [address] [place], [place] [phone] 02/07/2024 Luc Pereira PLAN OF TREATMENT No Information
--- OUTSIDE RECORDS SUMMARY | 2024-02-13 16:11 | XMS_ITS ---
Author Organization [facility] Address [address] [place] [address] Care Team Providers Care Entry Level Manufacturing Engineer Name Role Phone Karen Charles MD Primary Care Provider Luc Avila Unavailable [phone] ALLERGIES No Known Allergies REASON FOR VISIT Patient presents today for a colon screening MEDICATIONS Medication SIG (Take, Route, Frequency, Duration) Notes Start Date End Date Status Biotin Active Finasteride 5 MG 1 tablet Orally Once a day Active Simvastatin 40 MG 1 tablet in the even ing Orally Once a day Active Vitamin D Active Fluticasone Propionate Active Multi Vitamin/Minerals 1 1 Orally QD Active amLODIPine Besylate 5 MG Oral for 90 Active Vitamin C 500 MG 1 tablet Orally Once a day Active Tamsulosin HCl 0.4 MG 1 capsule 30 minut es after the same meal each day Orally Once a day Active PROBLEMS Problem Type ICD Code Onset Dates Problem Status W/U Status Risk SNOMED Code Notes Problem Encounter for other preprocedural examination (Z01.818) Active confirmed Pre-procedure evaluation check (679756578) VITAL SIGNS BMI 25.66 kg/m2 10/25/2023 Blood pressure systolic 00 mm Hg 10/25/19 24 Blood pressure diastolic 00 mm Hg 024 Height 68.25 in 10/25/2023 Weight 170 lbs 10/25/2023 Encounters Encounter Location Date Provider Diagnosis [facility] [address] [place] [id number] 10/25/2023 Luc Pereira History of adenomato us polyp of colon Z86.010 ; Encounter for other preprocedural examination Z01.818 and Encounter for screening for malignant neoplasm of colon Z12.11 ASSESSMENTS Encounter Date Diagnosis Assessment Notes Treatment Notes Treatment Clinical Notes 10/25/2023 History of adenomatous polyp of colon (ICD-10 - Z86.010) 10/25/2023 Encounter for other preprocedural examination (ICD-10 - Z01.818) 10/25/2023 Encounter for screening for malignant neoplasm of colon (ICD-10 - Z12.11) PLAN OF TREATMENT Future Test Test Name Order Date COLONOSCOPY 10/25/2023 Next Appt Details Follow Up: prn, Reason: Progress Notes * Examination Category Sub-Category Detail Notes General Examination GENERAL APPEARANCE: pleasant , well nourished, well developed, in no acute distress HEAD: EYES: sclera non-icteric EARS: NOSE: THROAT: NECK/THYROID: no cervical lymphade nopathy, neck supple HEART: S1, S2 normal CHEST: LUNGS: clear to auscultatio n bilaterally ABDOMEN: normal bowel sounds, no guarding or rigidity, no guarding or rigidity, no masses palpable, soft, nontender, nondistended NEUROLOGIC: alert and oriented SKIN: nonjaundiced, no spi munira angiomata EXTREMITIES: no edema PERIPHERAL PULSES: BACK: BREASTS: MUSCULOSKELETAL: MALE GENITOURINARY: LYMPH NODES: RECTAL EXAM: FEMALE GENITOURINARY: ORAL CAVITY: mucosa moist
--- OUTSIDE RECORDS SUMMARY | 2024-02-13 16:11 | XMS_ITS | Patient Health Record ---
Author Organization [facility] Address [address] [place] [address] Care Team Providers Care Paper Maker Name Role Phone Karen Charles MD Primary Care Provider Luc Avila Unavailable [phone] ALLERGIES No Known Allergies REASON FOR REFERRAL No Information MEDICATIONS Medication SIG (Take, Route, Frequency, Duration) Notes Start Date End Date Status Biotin Active Multi Vitamin/Minerals 1 1 Orally QD Active amLODIPine Besylate 5 MG Oral for 90 Active Tamsulosin HCl 0.4 MG 1 capsule 30 minut es after the same meal each day Orally Once a day Active Vitamin C 500 MG 1 tablet Orally Once a day Active Finasteride 5 MG 1 tablet Orally Once a day Active Simvastatin 40 MG 1 tablet in the even ing Orally Once a day Active Vitamin D Active Fluticasone Propionate Active IMMUNIZATIONS Vaccine Route Administration Date Status Comme nts Flu vaccine no Preserv 3 and > Unknown 12/18/2014 Admin istered Influenza Unknown 10/28/2020 Administered SOCIAL HISTORY Sex Assigned At : Social History Observation Description Sex Assigned At Unknown PROBLEMS Problem Type ICD Code Onset Dates Problem Status W/U Status Risk SNOMED Code Notes Problem Long-term use of aspirin therapy (Z79.82) Active confirmed 411385927 Problem History of adenomatous polyp of colon (Z86.010) Active confirmed 902327159 Problem Encounter for screening for malignant neoplasm of colon (Z12.11) Active confirmed 994330456 Problem Encounter for screening for malignant neoplasm of rectum (Z12.12) Active confirmed Screening fo r malignant neoplasm of rectum (639821088) Problem Diverticulosis of colon (K57.30) Active confirmed Diverticulosi s of colon (548761776) Problem Diverticulosis of sigmoid colon (K57.30) Active confirmed Diverticulosis of sigmoid colon (732036422) Problem Encounter for other preprocedural examination (Z01.818) Active confirmed Pre-procedure evaluation check (622046208) VITAL SIGNS Blood pressure diastolic 00 mm Hg 10/25/2023 Height 68.25 in 10/25/2023 Blood pressure systolic 00 mm Hg 10/25/2023 Weight 170 lbs 10/25/2023 BMI 25.66 kg/m2 10/25/2023 Encounters Encounter Location Date Provider [place] [facility] [place] [address] [place], [place] [phone] 02/07/2024 Luc Pereira [facility] [address] [place] [address] 10/25/2023 Luc Pereira History of adenomato us [...] Future Test Test Name Order Date COLONOSCOPY 04/15/2015 COLONOSCOPY 10/28/2020 COLONOSCOPY 02/17/2021 COLONOSCOPY 11/11/2021 COLONOSCOPY 10/25/2023 Insurance Providers Payer Name Payer Address Payer Phone Subscriber Number Group Number Insured Name Patient Relationship to Insured Coverage Start Date Coverage End Date MEDICARE OF [place] [address] [place] [address] [id number] CLIFF SUJATHA Self - patient is the insured [facility] [address] [place], [place] [id number] CLIFFSUJATHA Self - patient is the insured MEDICAL (GENERAL) HISTORY Medical History History ICD Code Tubular adenomas removed in 1998, 2004, 2009, and in 06/2015 Denies [place],DM,CVA,Lung disease,renal dise ase Hyperlipidemia BPH Sleep apnea uses CPAP Enlarged prostate PAC's-sees Dr. Haque Glaucoma Colonoscopy in 11/2020 with m ultiple adenomas removed, including a larger approx 2cm adenoma removed from the area of the distal transverse colon at 60cm and marked with ink Colonoscopy in 05/2021 with s ome residual polyp in the above area that was removed Colonoscopy 02/2022-removed the residual polyp tissue from the inked area Surgical History Surgery Date(Month/Year) Torn Retina-right Glaucoma left eye laser surgery 2020 Left cataract surgery planned for end of 11/2021 Right cataract surgery
== END 2024-02-07 09:40 | disposition home or self-care (01) ==
PROVIDERS: PCP Internal Medicine; Visit Provider Internal Medicine
PROC: 0DJD8ZZ Inspection of Lower Intestinal Tract, Via Natural or Artificial Opening Endoscopic (ICD-10-PCS; CPT 45378; principal; 2024-02-07 07:30)
DX: Z12.11 Encounter for screening for malignant neoplasm of colon (principal); Z86.0101 Personal history of adenomatous and serrated colon polyps; K57.30 Diverticulosis of large intestine without perforation or abscess without bleeding; K64.8 Other hemorrhoids; I10 Essential (primary) hypertension; E78.5 Hyperlipidemia, unspecified; I49.1 Atrial premature depolarization; N40.0 Benign prostatic hyperplasia without lower urinary tract symptoms; H40.9 Unspecified glaucoma; G47.33 Obstructive sleep apnea (adult) (pediatric); Z79.51 Long term (current) use of inhaled steroids; Z79.899 Other long term (current) drug therapy; Z99.89 Dependence on other enabling machines and devices
CPT/HCPCS: G0105; J1596; J2003; J2704

== ENCOUNTER 2024-04-01 09:14 | Outpatient (REF) | payer MEDICARE, BC, SELFPAY ==
[2024-04-01 09:57] LABS: MANUAL DIFF FLAG NO
[2024-04-01 10:12] LABS: Basophils Absolute Auto 0.1 X10*3/uL (0.0-0.2); Basophils Percent Auto 0.9 % (0-2); Eosinophils Absolute Auto 0.4 X10*3/uL (0.0-0.4); Eosinophils Percent Auto 5.4 % (0-4); Hematocrit 45.8 % (42.0-52.0); Hemoglobin 14.9 g/dl (14.0-18.0); Imm Gran Abs Auto 0.01 X10*3/uL (0.00-0.03); Imm Gran Pct Auto 0.2 % (0.0-0.4); Lymphocytes Absolute Auto 1.9 X10*3/uL (1.2-4.9); Lymphocytes Percent Auto 27.8 % (20-40); Mean Corpuscular HGB Conc 32.5 g/dl (31.0-36.0); Mean Corpuscular Hemoglobin 28.7 pg (27.0-33.0); Mean Corpuscular Volume 88.2 fL (80.0-98.0); Mean Platelet Volume 10.3 fL (9.4-12.4); Monocytes Absolute Auto 0.6 X10*3/uL (0.1-1.2); Monocytes Percent Auto 8.6 % (2-11); Neutrophils Absolute Auto 3.8 x10*3/uL (2.0-8.3); Neutrophils Percent Auto 57.1 % (45-73); Platelet Count 191 X10*3/uL (160-400); Red Blood Count 5.19 X10*6/uL (4.60-5.80); Red Cell Distribution Width 12.7 % (11.0-16.0); White Blood Count 6.7 X10*3/uL (4.8-10.8)
[2024-04-01 11:19] LABS: Alanine Aminotransferase 24 U/L (0-40); Alkaline Phosphatase 57 U/L (39-117); Anion Gap 8 (12-20); Aspartate Amino Transferase 23 U/L (5-37); Bilirubin Total 0.8 mg/dL (0.0-1.0); Blood Urea Nitrogen 25 mg/dL (9-16); Calcium 8.8 mg/dL (8.4-10.2); Carbon Dioxide 32 mmol/L (22-29); Chloride 105 mmol/L (96-108); Cholesterol 135 mg/dL (<200); Estimated Glomerular Filt Rate > 60; Glucose Fasting 97 mg/dL (60-99); HDL Cholesterol 59 mg/dL (>40); LDL Cholesterol Calculated 59 mg/dL (<100); Potassium 3.6 mmol/L (3.3-5.1); Sodium 141 mmol/L (135-145); Total Protein 7.4 g/dL (6.5-8.0); Triglycerides 89 mg/dL (<150)
--- OUTSIDE RECORDS SUMMARY | 2024-04-01 13:35 | XMS_ITS | Clinical Summary ---
Author Organization [address] [facility] Address [address] [place] [address] Phone Care Team Providers Care Senior Hr Manager Name Role Phone Unavailable Primary Care Provider Unavailabl e Encounters Date Type Department Care Team Description 03/19/[address] [facility] - Main Lab [address] [facility] [place] [address] Bahman Jones MD Benign prostatic hyperplasia with lower urinary tract symptoms from Last 3 Months Social History Tobacco Use Types Packs/Day Years Used Date Smoking Tobacco: Never Assessed Sex and Gender Information Value Date Recorded Sex Assigned at Not on file Gender Identity Not on file Sexual Orientation Not on file Plan of Treatment Health Maintenance Due Date Last Done Comments DTaP,Tdap,and Td Vaccines (1 - Tdap) 1965 Zoster Vaccines (1 of 2) 1996 Pneumococcal Vaccine: 65+ Ye ars (1 of 1 - PCV) 11/22/2011 RSV Immunization Patients 60 + Years Old (1 - 1-dose 75+ series) 2021 COVID-19 Vaccine ( - 2023-2 5 season) 2023 Influenza Vaccine (#1) 2023 Cholesterol Screening (Lipid Panel) 03/20/2024 Depression Screening 03/20/2024 Falls Risk Assessment 03/20/2024 Hepatitis C Screening 03/20/2024 Medicare Annual Wellness Visit 03/20/2024 Social Influencers of Health Screening 03/20/2024 HIB Vaccines Aged Out No longer eligi ble based on patient's age to complete this topic HPV Vaccines Aged Out No longer eligi ble based on patient's age to complete this topic Hepatitis A Vaccines Aged Out No long er eligible based on patient's age to complete this topic Hepatitis B Vaccines Aged Out No long er eligible based on patient's age to complete this topic IPV Vaccines Aged Out No longer eligi ble based on patient's age to complete this topic MMR Vaccines Aged Out No longer eligi ble based on patient's age to complete this topic Meningococcal ACWY Vaccine Aged Out N o longer eligible based on patient's age to complete this topic RSV Immunization Patients Un munira 20 months Aged Out No longer eligible b ased on patient's age to complete this topic Varicella Vaccines Aged Out No longer eligible based on patient's age to complete this topic Procedures Procedure Name Priority Date/Time Associated Diagnosis Comments AP OUTSIDE CONSULT Routine 03/18/2024 Benign prostatic hyperplasia with lower urinary tract symptoms from Last 3 Months Results * Anatomic pathology outside consult (03/18/2024) Final Diagnosis A. Prostate, Left Middle [place] (Core Biopsy): - Benign prostate tissue. B. Prostate, Left Lateral [place] (Core Biopsy): - Benign prostate tissue. C. Prostate, Left Middle Middle (Core Biopsy): - Benign prostate tissue. D. Prostate, Left Lateral Middle (Core Biopsy): - Benign prostate tissue. E. Prostate, Left Middle [place] (Core Biopsy): - Benign prostate tissue. F. Prostate, Left Lateral Base (Core Biopsy): - Benign prostate tissue. G. Prostate, Right Middle [place] (Core Biopsy): - Benign prostate tissue. H. Prostate, Right Lateral [place] (Core Biopsy): -PROSTATIC ACINAR ADENOCARCINOMA CONVENTIONAL (USUAL) TYPE -Pauline Score: (3+3=6), Grade Group 1 Total Number of Cores: 1 Number of Positive Cores: 1 Percent of Prostatic Tissue Continuously Involved by Tumor: 20% I. Prostate, Right Middle Middle (Core Biopsy): - Benign prostate tissue. J. Prostate, Right Lateral Middle (Core Biopsy): -PROSTATIC ACINAR ADENOCARCINOMA CONVENTIONAL (USUAL) TYPE -[place] Score: (3+4=7), Grade Group 2 -Percentage Pattern: 4: 10% Total Number of Cores: 1 Number of Positive Cores: 1 Percent of Prostatic Tissue Continuously Involved by Tumor: 25% K. Prostate, Right Middle [place] (Core Biopsy): - Benign prostate tissue. L. Prostate, Right Lateral Base (Core Biopsy): -PROSTATIC ACINAR ADENOCARCINOMA CONVENTIONAL (USUAL) TYPE -Pauline Score: (3+3=6), Grade Group 1 Total Number of Cores: 1 Number of Positive Cores: 1 Percent of Prostatic Tissue Continuously Involved by Tumor: 10% 03/22/2024 3:26 PM [facility] Clinical Information Elevated PSA = 6.5 (01/22/24) N40.1 [id number] 03/22/2024 3:26 PM [facility] Gross Description A. Prostate, Left Middle [place] Biopsy: Received, properly labeled, are two H and E stained slides and two unstained slides. B. Prostate, Left Lateral [place] Biopsy: Received, properly labeled, are two H and E stained slides and two unstained slides. C. Prostate, Left Middle Middle Biopsy: Received, properly labeled, are two H and E stained slides and two unstained slides. D. Prostate, Left Lateral Middle Biopsy: Received, properly labeled, are two H and E stained slides and two unstained slides. E. Prostate, Left Middle Base Biopsy: Received, properly labeled, are two H and E stained slides and two unstained slides. F. Prostate, Left Lateral Base Biopsy: Received, properly labeled, are two H and E stained slides and two unstained slides. G. Prostate, Right Middle [place] Biopsy: Received, properly labeled, are two H and E stained slides and two unstained slides. H. Prostate, right Lateral [place] Biopsy: Received, properly labeled, are two H and E stained slides and two unstained slides. I. Prostate, Right Middle Middle Biopsy: Received, properly labeled, are two H and E stained slides and two unstained slides. J. Prostate, Right Lateral Middle Biopsy: Received, properly labeled, are two H and E stained slides and two unstained slides. K. Prostate, Right Middle Base Biopsy: Received, properly labeled, are two H and E stained slides and two unstained slides. L. Prostate, Right Lateral Base Biopsy: Received, properly labeled, are two H and E stained slides and two unstained slides. /al 03/22/2024 3:26 PM [facility] Disclaimer Unless otherwise specified, all tissue is 10% NB formalin fixed and paraffin embedded. Technical pathology services provided by [facility] at [address], [place] [address] (CLIA #[id number]/Asha Mace MD, Oceanology Teacher) 03/22/2024 3:26 PM EST KELLIE GABBY JARA ([facility]) [facility] Tissue Prostatic structure / Unknown 03/18/2024 03/19/2024 3:31 PM EST Tissue specimen (specimen) Prostatic structure / Unknown 03/18/2024 03/19/2024 3:31 PM EST Tissue specimen (specimen) Prostatic structure / Unknown 03/18/2024 03/19/2024 3:31 PM EST Tissue specimen (specimen) Prostatic structure / Unknown 03/18/2024 03/19/2024 3:31 PM EST Tissue specimen (specimen) Prostatic structure / Unknown 03/18/2024 03/19/2024 3:31 PM EST Tissue specimen (specimen) Prostatic structure / Unknown 03/18/2024 03/19/2024 3:31 PM EST Tissue specimen (specimen) Prostatic structure / Unknown 03/18/2024 03/19/2024 3:31 PM EST Tissue specimen (specimen) Prostatic structure / Unknown 03/18/2024 03/19/2024 3:31 PM EST Tissue specimen (specimen) Prostatic structure / Unknown 03/18/2024 03/19/2024 3:31 PM EST Tissue specimen (specimen) Prostatic structure / Unknown 03/18/2024 03/19/2024 3:31 PM EST Tissue specimen (specimen) Prostatic structure / Unknown 03/18/2024 03/19/2024 3:31 PM EST Tissue specimen (specimen) Prostatic structure / Unknown 03/18/2024 03/19/2024 3:31 PM EST Bahman Jones MD LAB PATHOLOGY ORDERA MYRTLE KELLIE ORTIZFIELD JARA ([facility]) [facility] [address] [place] [address], from Last 3 Months
--- OUTSIDE RECORDS SUMMARY | 2024-04-01 13:35 | XMS_ITS | Patient Health Record ---
Author Organization [facility] Address [address] [place] [address] Care Team Providers Care Automotive Worker Name Role Phone Karen Charles MD Primary Care Provider Luc Avila Unavailable [phone] ALLERGIES No Known Allergies REASON FOR REFERRAL [...] use of aspirin therapy (Z79.82) Active confirmed 838201717 Problem History of adenomatous polyp of colon (Z86.010) Active confirmed 778747458 Problem Encounter for screening for malignant neoplasm of colon (Z12.11) Active confirmed [id number] Problem Encounter for screening for malignant neoplasm of rectum (Z12.12) Active confirmed Screening fo r malignant neoplasm of rectum (664068494) Problem Diverticulosis of colon (K57.30) Active confirmed Diverticulosi s of colon (993546469) Problem Diverticulosis of sigmoid colon (K57.30) Active confirmed Diverticulosis of sigmoid colon (282347598) Problem Encounter for other preprocedural examination (Z01.818) Active confirmed Pre-procedure evaluation check (173796698) VITAL SIGNS Blood pressure diastolic 00 mm Hg 10/25/2023 Height 68.25 in 10/25/2023 Blood pressure systolic 00 mm Hg 10/25/2023 Weight 170 lbs 10/25/2023 BMI 25.66 kg/m2 10/25/2023 Encounters Encounter Location Date Provider Diagnosis [facility] Outpatient [address] [place], [place] [phone] 02/07/2024 Luc Pereira Colon cancer screeni ng Z12.11 and Personal history of colonic polyps Z86.0100 [facility] [address] [place] [address] 10/25/2023 Luc Pereira History of adenomato us polyp of colon Z86.010 ; Encounter for other preprocedural examination Z01.818 and Encounter for screening for malignant neoplasm of colon Z12.11 ASSESSMENTS Encounter Date Diagnosis Assessment Notes Treatment Notes Treatment Clinical Notes 02/07/2024 Colon cancer screening (ICD-10 - Z12.11) 02/07/2024 Personal history of colonic polyps (ICD-10 - Z86.0100) 10/25/2023 History of adenomatous polyp of colon [...] Date MEDICARE OF [place] [address] [place] [address] [phone] [id number] SUJATHA CORONADO Self - patient is the insured [facility] [address] [place], [place] [id number] SUJATHA CORONADO Self - patient is the insured MEDICAL (GENERAL) HISTORY Medical History History ICD Code Tubular adenomas removed in 1998, 2004, 2009, and in 06/2015 Denies IA,DM,CVA,Lung disease,renal dise ase Hyperlipidemia BPH Sleep apnea [...]
--- OUTSIDE RECORDS SUMMARY | 2024-04-01 13:35 | XMS_ITS ---
Author Organization [facility] Address [address] [place] [address] Care Team Providers Care Pin Machine Tender Name Role Phone Karen Charles MD Primary Care Provider Luc Avila [phone] REASON FOR VISIT screening,hx polyps Encounters Encounter Location Date Provider Diagnosis [facility] Outpatient [address] [place] [phone] 02/07/2024 Luc Pereira Colon cancer scree ashley Z12.11 and Personal history of colonic polyps Z86.0100 ASSESSMENTS Encounter Date Diagnosis Assessment Notes Treatment Notes Treatment Clinical Notes 02/07/2024 Colon cancer screening (ICD-10 - Z12.11) 02/07/2024 Personal history of colonic polyps (ICD-10 - Z86.0100) PLAN OF TREATMENT No Information
--- OUTSIDE RECORDS SUMMARY | 2024-04-01 13:36 | XMS_ITS ---
Author Organization [facility] Address [address] [place] [address] Care Team Providers Care Automobile Mechanic Apprentice Name Role Phone Karen Charles MD Primary Care Provider Luc Avila Unavailable [phone] ALLERGIES No Known Allergies REASON FOR VISIT [...] examination (Z01.818) Active confirmed Pre-procedure evaluation check (075697558) VITAL SIGNS BMI 25.66 kg/m2 10/25/2023 Blood pressure systolic 00 mm Hg 10/25/19 24 Blood pressure diastolic 00 mm Hg 024 Height 68.25 in 10/25/2023 Weight 170 lbs 10/25/2023 Encounters Encounter Location Date Provider Diagnosis [facility] [address] [place] [address] 10/25/2023 Luc Pereira History of adenomato us [...]
--- OUTSIDE RECORDS SUMMARY | 2024-04-01 13:36 | XMS_ITS | Encounter Summary ---
Author Organization [facility] Address [address] [place] [address] Care Team Providers Care Emotional Disabilities Teacher Name Role Phone Unavailable Primary Care Provider Unavailabl e Encounter Details Date Type Department Care Team (Late st Contact Info) Description 03/19/2024 Lab Requisition [facility] - Main Lab [address] [facility] [place] [address] Bahman Jones MD [address] [place], [place] [phone] Benign prostatic hyperplasia with lower urinary tract symptoms Social History Tobacco Use Types Packs/Day Years Used Date Smoking Tobacco: Never Assessed Sex and Gender Information Value Date Recorded Sex Assigned at Not on file Gender Identity Not on file Sexual Orientation Not on file documented as of this encounter Plan of Treatment Not on file documented as of this encounter Procedures Procedure Name Priority Date/Time Associated Diagnosis Comments AP OUTSIDE CONSULT Routine 03/18/2024 Benign prostatic hyperplasia with lower urinary tract symptoms documented in this encounter Results * Anatomic pathology outside consult (03/18/2024) Final Diagnosis A. Prostate, Left Middle [place] (Core Biopsy): - Benign prostate tissue. B. Prostate, Left Lateral [place] (Core Biopsy): - Benign prostate tissue. C. Prostate, Left Middle Middle (Core Biopsy): - Benign prostate tissue. D. Prostate, Left Lateral Middle (Core Biopsy): - Benign prostate tissue. E. Prostate, Left Middle [place] (Core Biopsy): - Benign prostate tissue. F. Prostate, Left Lateral Base (Core Biopsy): - Benign prostate tissue. G. Prostate, Right Middle [place] (Core Biopsy): - Benign prostate tissue. H. Prostate, Right Lateral [place] (Core Biopsy): -PROSTATIC ACINAR ADENOCARCINOMA CONVENTIONAL (USUAL) TYPE -[place] Score: (3+3=6), Grade Group 1 Total Number of Cores: 1 Number of Positive Cores: 1 Percent of Prostatic Tissue Continuously Involved by Tumor: 20% I. Prostate, Right Middle Middle (Core Biopsy): - Benign prostate tissue. J. Prostate, Right Lateral Middle (Core Biopsy): -PROSTATIC ACINAR ADENOCARCINOMA CONVENTIONAL (USUAL) TYPE -Pauline Score: (3+4=7), Grade Group 2 -Percentage Pattern: 4: 10% Total Number of Cores: 1 Number of Positive Cores: 1 Percent of Prostatic Tissue Continuously Involved by Tumor: 25% K. Prostate, Right Middle Base (Core Biopsy): - Benign prostate tissue. L. Prostate, Right Lateral Base (Core Biopsy): -PROSTATIC ACINAR ADENOCARCINOMA CONVENTIONAL (USUAL) TYPE -[place] Score: (3+3=6), Grade Group 1 Total Number of Cores: 1 Number of Positive Cores: 1 Percent of Prostatic Tissue Continuously Involved by Tumor: 10% 03/22/2024 3:26 PM [facility] Clinical Information Elevated PSA = 6.5 (01/22/24) N40.1 [id number] 03/22/2024 3:26 PM [facility] Gross Description A. Prostate, Left Middle [place] Biopsy: Received, properly labeled, are two H and E stained slides and two unstained slides. B. Prostate, Left Lateral [place] Biopsy: Received, properly labeled, are two H [...] two unstained slides. G. Prostate, Right Middle [place] Biopsy: Received, properly labeled, are two H and E stained slides and two unstained slides. H. Prostate, right Lateral [place] Biopsy: Received, properly labeled, are two H [...] two unstained slides. /al 03/22/2024 3:26 PM EST [facility] Disclaimer Unless otherwise specified, all tissue is 10% NB formalin fixed and paraffin embedded. Technical pathology services provided by [facility] at [address] [place] [address] [address], [place] [address] (CLIA #[id number]/Asha Mace MD, Instrumentation And Control Technician) 03/22/2024 3:26 PM EST [facility] Tissue Prostatic structure / Unknown [...] EST Bahman Jones MD LAB PATHOLOGY ORDERA BLES [facility] ([facility] [address] [place] [address], documented in this encounter Visit Diagnoses Diagnosis Benign prostatic hyperplasia with lower urinary tract symptoms documented in this encounter
== END 2024-04-01 09:15 | disposition home or self-care (01) ==
LOC: HO.HMGCLDS 09:14
PROVIDERS: PCP Internal Medicine; Visit Provider Internal Medicine
DX: I10 Essential (primary) hypertension (principal); E78.5 Hyperlipidemia, unspecified
CPT/HCPCS: 36415; 80053; 80061; 85025

== ENCOUNTER 2024-04-03 08:53 | Outpatient (AMB) | payer MEDICARE, BC, SELFPAY ==
[2024-04-03 08:55] VITALS: BP 128/66; PULSE 62; TEMP 36.4; O2SAT 97; BMI 25.4
--- NOTE | 2024-04-03 08:55 | A.OFFVIS_ITS ---
Intake Vital Signs 04/03/24 08:55 Height 5 ft 8.25 in Weight 168 lb BMI 25.4 BP 128/66 Blood Pressure Location Rt brachial Position Sitting Pulse 62 Pulse Source Pulse Oximeter Temp 97.6 F Temp Source Oral Pulse Oximetry (%) 97 Oxygen Delivery Method Room Air Intake Visit Reasons: SWV [id number] Allergies No Known Allergies Allergy (Verified 04/03/24 08:58) Medication List - Last Reconciled 04/03/24 by Karen Charles MD amlodipine 5 mg PO DAILY ascorbic acid (vitamin C) 500 mg PO DAILY biotin 1 mg PO DAILY chlorhexidine gluconate 0.12% 0.5 mL PO BID cholecalciferol (vitamin D3) 50 mcg PO DAILY finasteride 5 mg PO BEDTIME fluticasone propionate 50 mcg/actuation 1 spray intranasal DAILY multivitamin with iron 1 tab PO DAILY simvastatin 40 mg PO QPM tamsulosin 0.4 mg PO BEDTIME HPI SWV G0439 HPI Details Initiated the conversation about Advanced Directives. Advanced Dire ctives help? patients prepare for current and future decisions about their medical treatment? and place of care. Discussed with patient that it is a process where a patients? current condition and prognosis are reviewed, their wishes for information? regarding their illness are elicited, and likely medical dilemmas are presented? and options discussed. The form can be amended as needed, reviewed yearly and? make changes as needed IPPE/AWV ? year old presents? for her ? Annual? Wellness Visit, initial visit.? Medical / Social History Reviewed? Past Medical History ?Yes? . ? [place]? of Care / Care Team list updated ?Yes . ? Surgical/Hospitalization? History ?Yes . ? Current Medications? (including OTC and supplements) ?Yes . ? Family History ?Yes? . ? Tobacco? Control form ?Yes . ? AUDIT-C (Alcohol use) form? ?Yes . ? Illicit drug use in Social? History ?Yes . ? Current diagnosis of? depression? ?No ? Appropriate PHQ2/PHQ9? completed ?Yes . ? Data entered by ?Medical? Service Line Bus Cleaner and reviewed by provider ? Fall Risk ? Fall? History? Have you had any falls with? injury in the past year? ?No . ? Have you had two or more? falls in the past year? ?No . ? Fall Risk Assessment: ?No? falls in the past year . ? HRA filled out by? the patient, reviewed by Provider and scanned. ? IPPE/AWV ? Balance? [place]? ?Yes . ? Tandem? walk ?Yes . ? Walk and? Turn ?Yes . ? Rise from? sit to stand ?Yes . ?Vision? Corrective? lens ?Yes ? Vision? screen ? Up-to-date, has an appointment [] for vision? screening and glaucoma screening ?Hearing? Whisper? test ?pass .? Initiated the conversation about Advanced Directives. Advanced Directives help? patients prepare for current and future decisions about their medical treatment? and place of care. Discussed with patient that it is a process where a patients? current condition and prognosis are reviewed, their wishes for information? regarding their illness are elicited, and likely medical dilemmas are presented? and options discussed. The form can be amended as needed, reviewed yearly and? make changes as needed Written? Plan?Completed. See Patient? Documents. [facility] Medical History (Updated 04/03/24 @ 09:31 by Karen Charles MD) Vitamin D deficiency Premature atrial contractions Essential hypertension BPH (benign prostatic hyperplasia) H/O needle biopsy GERD (gastroesophageal reflux disease) JAYLA on CPAP Hyperlipidemia Surgical History (Updated 04/03/24 @ 09:13 by Karen Charles MD) Hx of bilateral cataract extraction Hx of wisdom tooth extraction Hx of detached retina repair H/O colonoscopy Family History Father No problems noted. Mother No problems noted. Social History Housing: House Are you a primary medical care administrator to a significant other at home: No Do you presently have visiting nurse or other home services: No Alcohol intake: current Alcohol intake frequency: holidays/special occasions only Patient Tobacco Use Status: Never used Tobacco e-Cigarette/Vaping Use: Never Used service: Yes Current occupational status: retired Cognitive needs: No Hearing needs: No Vision needs: Yes Questionnaire Medicare Wellness Checkup [age] What gender do you identify with?: male During the past 4 weeks, how much have you been bothered by emotional problems such as feeling anxious, depressed, irritable, sad or downhearted, and blue?: not at all During the past 4 weeks, has your physical & emotional health limited your social activities with family, friends, neighbors, or groups?: not at all During the past 4 weeks, how much bodily pain have you generally had?: very mild pain During the past 4 weeks, was someone available to help you if you needed & wanted help?: yes, as much as I wanted During the past 4 weeks, what was the hardest physical activity you could do for at least 2 minutes?: heavy Can you get to places out of walking distance without help? (For eg., can you travel alone on buses, taxis or drive your car?): Yes Can you go shopping for groceries or clothes without someone's help?: Yes Can you prepare your own meals?: Yes Can you do your housework without help?: Yes Because of any health problems, do you need the help of another person with your personal care needs such as eating, bathing, dressing or getting around the house?: No Can you handle your own money without help?: Yes During the past 4 weeks, how would you rate your health in general?: very good During the past 4 weeks how have things been going for you?: very well; could hardly better Are you having difficulties driving your car?: no Do you always fasten your seat belt when you are in a car?: yes, usually During past 4 weeks, have you been bothered by the following: never: Falling or dizzy when standing up, Sexual problems?, Trouble eating well?, Teeth or denture problems? and Problems using the telephone? and sometimes: Tiredness or fatigue? Have you fallen 2 or more times in the past year?: No Are you afraid of falling?: No Are you a smoker?: no During the past 4 weeks, how many drinks of wine, beer, or other alcoholic beverages did you have?: 1 drink or less per week Do you exercise for about 20 minutes 3 or more times a week?: no, I usually do not exercise this much Have you been given information to help with the following?: no: Hazards in your house that might hurt you? and no: Keeping track of your medications? How often do you have trouble taking medicines the way you have been told to take them?: I always take medicine as prescribed How confident are you that you can control & manage most of your health problems?: very confident What is your race?: White Mini Mental State Exam (MMSE) Orientation What is the (year) (season) (date) (day) (month)?: year, season, date, day and month Where are we (state) (county) (town or city) (hospital) (floor)?: state, county, town or city, hospital/clinic and floor Registration Name of 3 unrelated objects clearly and slowly, then ask patient to repeat all 3 of them. (1st repeat determines score. Make sure they can repeat all three): object 1, object 2 and object 3 Attention & Calculation (CHOOSE ONE) Spell WORLD backwards (DLROW): 5 letters Recall Ask patient to repeat the 3 items from question #3.: object 1, object 2 and object 3 Language Show patient a wristwatch & ask what it is. Repeat for pencil.: watch and pencil Ask the patient to repeat the phrase 'No ifs, ands, or buts' after you.: correct Ask the patient to 'take a piece of paper with their right hand' 'fold paper in half' 'place paper on floor': take paper in right hand, fold paper in half and place paper on floor Print the sentence 'CLOSE YOUR EYES' on a piece. If patient actually closes eyes then score.: followed written direction Give patient a blank piece of paper & ask to write a sentence. Score if it co ntains a noun & verb.: sentence contains subject and verb Ask patient to copy figure of intersecting pentagons exactly. Score if all 10 angles & 2 intersects are included.: all 10 angles present & 2 are intersected Score Score: 30 PHQ-9 Over the last 2 weeks, how often have you been bothered by any of the following problems? 1. Little interest or pleasure in doing things: not at all 2. Feeling down, depressed, or hopeless: not at all 3. Trouble falling or staying asleep, or sleeping too much: not at all 4. Feeling tired or having little energy: several days 5. Poor appetite or overeating: not at all 6. Feeling bad about yourself - or that you are a failure or have let yourself or your family down: not at all 7. Trouble concentrating on things, such as reading the newspaper or watching television: not at all 8. Moving or speaking so slowly that other people could have noticed. Or the opposite - being so fidgety or restless that you have been moving around a lot more than usual: not at all 9. Thoughts that you would be better off or of hurting yourself in some way: not at all Total score: 1 Depression Screening Interpretation: Negative Depression Screening Done: Yes 35636 - PHQ-9 Billing: Yes Source: Developed by Drs. Luc Dover, Perla Morataya, Abraham Love and colleagues, with an educational luis from [employer]. Review of Systems Const All systems reviewed & are unremarkable except as noted in HPI and below Reports no additional complaints Eyes Reports no additional complaints ENT Reports no additional complaints Card Reports no additional complaints Resp Reports no additional complaints GI Reports no additional complaints Reports no additional complaints Musc Reports no additional complaints Physical Exam Vital Signs: Last Vital Signs Temp 97.6 F 04/03/24 08:55 Pulse 62 04/03/24 08:55 BP 128/66 04/03/24 08:55 Pulse Ox 97 04/03/24 08:55 Oxygen Delivery Method Room Air 04/03/24 08:55 BMI result Body Mass Index 25.4 Const General: no acute distress HEENT Head: Yes normal to inspection Ears: hearing grossly normal bilaterally Neck Neck: Yes no lymphadenopathy and Yes supple Resp Effort & Inspection: normal respiratory effort Auscultation: clear to auscultation bilaterally Cardio Rhythm: regular rhythm Heart sounds: S1 normal heart sound present and S2 normal heart sound present GI Inspection: Yes normal to inspection Palpation (GI): Soft to palpation Percussion: Yes normal to percussion Auscultation: normal bowel sounds Extrem General: Yes no clubbing, cyanosis or edema Assessment & Plan Assessment & Plan (1) H/O colonoscopy: Comment: hx polyps, colonoscopy 2022, 02/2024 negative, recheck [address] Pereira Code(s): Z98.890 - Other specified postprocedural states Plan: f/u GI (2) Annual physical exam: Code(s): Z00.00 - Encounter for general adult medical examination without abnormal findings Plan: well balanced diet, regular exercise (3) Hyperlipidemia: Code(s): E78.5 - Hyperlipidemia, unspecified Plan: cont Simvastatin (4) Essential hypertension: Code(s): I10 - Essential (primary) hypertension Plan: cont meds (5) BPH (benign prostatic hyperplasia): Comment: f/u Dr. Ballard, 03/2024 elevated PSA at 6 , had MRI and prostate bx 03/2024 Code(s): N40.0 - Benign prostatic hyperplasia without lower urinary tract symptoms Plan: f/u urology (6) JAYLA on CPAP: Comment: f/u sleep medicine Code(s): G47.33 - Obstructive sleep apnea (adult) (pediatric); Z99.89 - Dependence on other enabling machines and devices Plan: cont C pap Orders: Orders [place]. Panel Fast 1 Year E55.9 - Vitamin D deficiency, unspecified, E78.5 - Hyperlipidemia, unspecified, I10 - Essential (primary) hypertension Complete Blood Count Auto Diff 1 Year E55.9 - Vitamin D deficiency, unspecified, E78.5 - Hyperlipidemia, unspecified, I10 - Essential (primary) hypertension Lipid Panel 1 Year E55.9 - Vitamin D deficiency, unspecified, E78.5 - Hyperlipidemia, unspecified, I10 - Essential (primary) hypertension Vitamin D 25-OH Total 1 Year E55.9 - Vitamin D deficiency, unspecified, E78.5 - Hyperlipidemia, unspecified, I10 - Essential (primary) hypertension Quality Reporting (2020) Depression/Bipolar (159/160/161/177) PHQ-9: Total score: 1 Coding Level of Care Code Medicare Subsequent (G0439) Diagnoses H/O colonoscopy Z98.890 Annual physical exam Z00.00 Hyperlipidemia E78.5 Essential hypertension I10 BPH (benign prostatic hyperplasia) N40.0 JAYLA on CPAP G47.33; Z99.89 CPT Codes Advance Care Planning - Advance Care Planning discussion: On file, no changes ([id number]) Advance Care Planning - Time spent: 1-15 minutes, on File ([id number]) Additional Codes PHQ-9 - 84729 - PHQ-9 Billing: Yes ([id number]) Advance Care Planning Advance Care Planning discussion: On file, no changes Forms completed: Health Care Proxy Time spent: 1-15 minutes, on File Did not discuss due to Cultural/Spiritual beliefs: Yes
--- OUTSIDE RECORDS SUMMARY | 2024-04-03 10:00 | XMS_ITS | Clinical Summary ---
Author Organization [address] [facility] Address [address] [place] [address] Phone Care Team Providers Care Ear Nose Throat Surgeon Name Role Phone Unavailable Primary Care Provider Unavailabl e Encounters Date Type Department Care Team Description 03/19/2024 Lab Requisition [facility] - Main Lab [address] [facility] [address] Bahman Jones MD Benign prostatic [...] (03/18/2024) Final Diagnosis A. Prostate, Left [place] (Core Biopsy): - Benign prostate tissue. B. Prostate, Left Lateral [place] (Core Biopsy): - Benign prostate tissue. C. Prostate, Left [place] (Core Biopsy): - Benign prostate tissue. D. Prostate, Left Lateral [place] (Core Biopsy): - Benign prostate tissue. E. Prostate, Left [place] (Core Biopsy): - Benign prostate tissue. F. Prostate, Left Lateral [place] (Core Biopsy): - Benign prostate tissue. G. Prostate, Right [place] (Core Biopsy): - Benign prostate tissue. H. Prostate, Right Lateral [place] (Core Biopsy): -PROSTATIC ACINAR ADENOCARCINOMA CONVENTIONAL (USUAL) TYPE -Pauline Score: (3+3=6), Grade Group 1 Total Number of Cores: 1 Number of Positive Cores: 1 Percent of Prostatic Tissue Continuously Involved by Tumor: 20% I. Prostate, Right [place] (Core Biopsy): - Benign prostate tissue. J. Prostate, Right Lateral [place] (Core Biopsy): -PROSTATIC ACINAR ADENOCARCINOMA CONVENTIONAL (USUAL) TYPE -Albia Score: (3+4=7), Grade Group 2 -Percentage Pattern: [...] Involved by Tumor: 10% 03/22/2024 3:26 PM [facility] Clinical Information Elevated PSA = 6.5 (01/22/24) N40.1 [id number] 03/22/2024 3:26 PM [facility] Gross Description A. Prostate, Left [place] Biopsy: Received, properly labeled, are two H and E stained slides and two unstained slides. B. Prostate, Left Lateral [place] Biopsy: Received, properly labeled, are two H [...] two unstained slides. G. Prostate, Right [place] Biopsy: Received, properly labeled, are two H and E stained slides and two unstained slides. H. Prostate, right Lateral [place] Biopsy: Received, properly labeled, are two H [...] two unstained slides. /al 03/22/2024 3:26 PM [facility] Disclaimer Unless otherwise specified, all tissue is 10% NB formalin fixed and paraffin embedded. Technical pathology services provided by [facility] at [address], [place] [address] (CLIA #[id number]/Asha Mace MD, Line Therapist) 03/22/2024 3:26 PM EST KELLIE GABBY JARA ([facility]) [facility] Tissue Prostatic structure / Unknown 03/18/2024 [...] LAB PATHOLOGY ORDERA MYRTLE KELLIE ORTIZFIELD JARA ([facility]) [facility] [address] [place] [address], from Last 3 Months
--- OUTSIDE RECORDS SUMMARY | 2024-04-03 10:00 | XMS_ITS ---
Author Organization [facility] Address [address] [place] [address] Care Team Providers Care Yarn Weight And Strength Tester Name Role Phone Karen Charles MD Primary Care Provider Luc Avila [phone] REASON FOR VISIT screening,hx polyps Encounters Encounter Location Date Provider Diagnosis [facility] [address] [place] [id number] 02/07/2024 Luc Pereira Colon cancer scree ashley Z12.11 and Personal history of colonic polyps Z86.0100 ASSESSMENTS Encounter Date Diagnosis Assessment Notes Treatment Notes Treatment Clinical Notes 02/07/2024 Colon cancer screening (ICD-10 - Z12.11) 02/07/2024 Personal history of colonic polyps (ICD-10 - Z86.0100) PLAN OF TREATMENT No Information
--- OUTSIDE RECORDS SUMMARY | 2024-04-03 10:00 | XMS_ITS | Patient Health Record ---
Author Organization [facility] Address [address] [place] [address] Care Team Providers Care Bartender Manager Name Role Phone Karen Charles MD Primary Care Provider Luc Avila Unavailable [phone] ALLERGIES No Known Allergies REASON FOR REFERRAL [...] use of aspirin therapy (Z79.82) Active confirmed [id number] Problem History of adenomatous polyp of colon (Z86.010) Active confirmed [id number] Problem Encounter for screening for malignant neoplasm of colon (Z12.11) Active confirmed [id number] Problem Encounter for screening for malignant neoplasm of rectum (Z12.12) Active confirmed Screening fo r malignant neoplasm of rectum (966311878) Problem Diverticulosis of colon (K57.30) Active confirmed Diverticulosi s of colon (724279450) Problem Diverticulosis of sigmoid colon (K57.30) Active confirmed Diverticulosis of sigmoid colon (364181823) Problem Encounter for other preprocedural examination (Z01.818) Active confirmed Pre-procedure evaluation check (564170349) VITAL SIGNS Blood pressure diastolic 00 mm Hg 10/25/2023 Height 68.25 in 10/25/2023 Blood pressure systolic 00 mm Hg 10/25/2023 Weight 170 lbs 10/25/2023 BMI 25.66 kg/m2 10/25/2023 Encounters Encounter Location Date Provider Diagnosis [facility] [address] [place], [place] [phone] 02/07/2024 Luc Pereira Colon cancer screeni ng Z12.11 and Personal history of colonic polyps Z86.0100 [facility] [address] [place] [address] 10/25/2023 Luc Pereira History of adenomato us [...] [place] [address] [place] [address] [phone] [id number] SUJATHA CORONADO Self - patient is the insured [facility] [address] [place], [place] [id number] [phone] [id number] SUJATHA CORONADO Self - patient is the insured MEDICAL (GENERAL) HISTORY Medical History History ICD Code Tubular adenomas removed in 1998, 2004, 2009, and in 06/2015 Denies [place],DM,CVA,Lung disease,renal dise ase Hyperlipidemia BPH Sleep apnea [...]
--- OUTSIDE RECORDS SUMMARY | 2024-04-03 10:01 | XMS_ITS ---
Author Organization [facility] Address [address] [place] [address] Care Team Providers Care Instructor Extension Work Name Role Phone Karen Charles MD Primary Care Provider Luc Avila Unavailable [phone] ALLERGIES No Known Allergies REASON FOR VISIT [...] examination (Z01.818) Active confirmed Pre-procedure evaluation check (558157373) VITAL SIGNS BMI 25.66 kg/m2 10/25/2023 Blood pressure systolic 00 mm Hg 10/25/19 24 Blood pressure diastolic 00 mm Hg 024 Height 68.25 in 10/25/2023 Weight 170 lbs 10/25/2023 Encounters Encounter Location Date Provider Diagnosis [facility] [address] [place] [address] 10/25/2023 Luc Pereira History of adenomato us [...]
--- OUTSIDE RECORDS SUMMARY | 2024-04-03 10:01 | XMS_ITS | Encounter Summary ---
Author Organization [facility] Address [address] [place] [address] Care Team Providers Care Chainstitch Hemmer Name Role Phone Unavailable Primary Care Provider Unavailabl e Encounter Details Date Type Department Care Team (Late st Contact Info) Description 03/19/2024 Lab Requisition [facility] - Main Lab [address] [facility] [place] [address] Bahman Jones MD [address] [place], [place] [phone] Benign prostatic hyperplasia with lower urinary tract [...] (03/18/2024) Final Diagnosis A. Prostate, Left [place] (Core Biopsy): - Benign prostate tissue. B. Prostate, Left Lateral [place] (Core Biopsy): - Benign prostate tissue. C. Prostate, Left [place] (Core Biopsy): - Benign prostate tissue. D. Prostate, Left Lateral [place] (Core Biopsy): - Benign prostate tissue. E. Prostate, Left [place] (Core Biopsy): - Benign prostate tissue. F. Prostate, Left Lateral [place] (Core Biopsy): - Benign prostate tissue. G. Prostate, Right [place] (Core Biopsy): - Benign prostate tissue. H. Prostate, Right Lateral [place] (Core Biopsy): -PROSTATIC ACINAR ADENOCARCINOMA CONVENTIONAL (USUAL) TYPE -[place] Score: (3+3=6), Grade Group 1 Total Number [...] Biopsy): -PROSTATIC ACINAR ADENOCARCINOMA CONVENTIONAL (USUAL) TYPE -[place] Score: (3+3=6), Grade Group 1 Total Number of Cores: 1 Number of Positive Cores: 1 Percent of Prostatic Tissue Continuously Involved by Tumor: 10% 03/22/2024 3:26 PM [facility] Clinical Information Elevated PSA = 6.5 (01/22/24) N40.1 [id number] 03/22/2024 3:26 PM [facility] Gross Description A. Prostate, Left [place] Biopsy: Received, properly labeled, are two H and E stained slides and two unstained slides. B. Prostate, Left Lateral [place] Biopsy: Received, properly labeled, are two H [...] two unstained slides. G. Prostate, Right [place] Biopsy: Received, properly labeled, are two H and E stained slides and two unstained slides. H. Prostate, right Lateral [place] Biopsy: Received, properly labeled, are two H [...] unstained slides. /al 03/22/2024 3:26 PM EST [facility] Disclaimer Unless otherwise specified, all tissue is 10% NB formalin fixed and paraffin embedded. Technical pathology services provided by [facility] at [address] [place] [address] [address], [place] [address] (CLIA #[id number]/Asha Mace MD, Polls Or Surveys Interviewer) 03/22/2024 3:26 PM EST [facility] Tissue Prostatic structure / Unknown [...] Bahman Jones MD LAB PATHOLOGY [facility] [address] [place] [address], documented in this encounter Visit Diagnoses Diagnosis Benign prostatic hyperplasia with lower urinary tract symptoms documented in this encounter
== END 2024-04-03 09:32 | disposition home or self-care (01) ==
PROVIDERS: PCP Internal Medicine; Visit Provider Internal Medicine
DX: Z00.00 Encounter for general adult medical examination without abnormal findings (principal); Z98.890 Other specified postprocedural states; E78.5 Hyperlipidemia, unspecified; I10 Essential (primary) hypertension; N40.0 Benign prostatic hyperplasia without lower urinary tract symptoms; G47.33 Obstructive sleep apnea (adult) (pediatric); Z99.89 Dependence on other enabling machines and devices

== ENCOUNTER → 2024-04-03 08:53 | Outpatient (BNVA) | payer MEDICARE, BC, SELFPAY | PROVIDERS: PCP Internal Medicine; Visit Provider Internal Medicine | DX: Z00.00 Encounter for general adult medical examination without abnormal findings (principal); E78.5 Hyperlipidemia, unspecified; I10 Essential (primary) hypertension; N40.0 Benign prostatic hyperplasia without lower urinary tract symptoms; G47.33 Obstructive sleep apnea (adult) (pediatric); E55.9 Vitamin D deficiency, unspecified; Z99.89 Dependence on other enabling machines and devices; Z71.89 Other specified counseling; Z98.890 Other specified postprocedural states | CPT/HCPCS: 96127 ==

== ENCOUNTER 2024-06-20 10:42 | Outpatient (AMB) | payer MEDICARE, BC, SELFPAY ==
--- NOTE | 2024-06-20 10:45 | A.OFFVIS_ITS ---
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 Required: No Accompanied by: Self / Same As Patient Allergies No Known Allergies Allergy (Verified 04/03/24 08:58) Medication List - Last Reconciled 06/20/24 by Jeb Haque MD amlodipine 5 mg PO DAILY ascorbic acid (vitamin C) 500 mg PO DAILY biotin 1 mg PO DAILY chlorhexidine gluconate 0.12% 0.5 mL PO BID cholecalciferol (vitamin D3) 50 mcg PO DAILY finasteride 5 mg PO BEDTIME fluticasone propionate 50 mcg/actuation 1 spray intranasal DAILY multivitamin with iron 1 tab PO DAILY simvastatin 40 mg PO QPM tamsulosin 0.4 mg PO BEDTIME HPI Comments Details: Kurtis returns for follow-up regarding atrial arrhythmias. He has a history of frequent PACs. Tried beta-blockers in past, but had some nonspecific had effects and stopped. Then diagnosed to have obstructive sleep apnea and started using CPAP. Overall, feeling substantially better. Also started on Norvasc for hypertension. Since last seen, no new complaints. Feeling very good. Absolutely no cardiac symptoms. Other issues, per patient- he has undergone cataract surgery followed by complications involving the retina, managed with prednisone injections. Some blurred vision persists. He has been diagnosed with slow-growing prostate cancer and is undergoing active surveillance. Exercise The patient reports infrequent exercise, acknowledging limited walking. There are no associated symptoms during physical activity. He aims to increase his level of activity gradually. [facility] Medical History (Updated 06/20/24 @ 12:35 by Jeb Haque MD) Vitamin D deficiency Premature atrial contractions Essential hypertension BPH (benign prostatic hyperplasia) H/O needle biopsy GERD (gastroesophageal reflux disease) JAYLA on CPAP Hyperlipidemia Surgical History Hx of bilateral cataract extraction Hx of wisdom tooth extraction Hx of detached retina repair H/O colonoscopy Family History Father No problems noted. Mother No problems noted. Social History Housing: House Are you a primary child care cook to a significant other at home: No Do you presently have visiting nurse or other home services: No Alcohol intake: current Alcohol intake frequency: holidays/special occasions only Patient Tobacco Use Status: Never used Tobacco e-Cigarette/Vaping Use: Never Used service: Yes Current occupational status: retired Cognitive needs: No Hearing needs: No Vision needs: Yes Review of Systems Const Denies chills, Denies fatigue, Denies fever(s), Denies frequent falls, Denies weakness, Denies weight gain and Denies weight loss ENT Denies dizziness Card Denies chest pain, Denies leg edema, Denies lightheadedness, Denies palpitations, Denies dyspnea and Denies dyspnea on exertion Resp Denies cough, Denies dyspnea and Denies dyspnea on exertion GI Denies hematochezia Musc Denies abnormal gait, Denies muscle weakness, Denies numbness, Denies radiating pain into limb and Denies tingling Neuro Denies abnormal gait, Denies dizziness, Denies frequent falls, Denies numbness, Denies tingling and Denies weakness Endo Denies fatigue and Denies palpitations Physical Exam Vital Signs: Last Vital Signs Pulse 55 06/20/24 10:47 BP 122/60 06/20/24 10:47 BMI result Body Mass Index 25.2 Const General: comfortable and no acute distress Orientation/consciousness: patient oriented x3 HEENT Other: Unremarkable Head: Yes normal to inspection Neck Neck: Yes normal visual inspection Chest Chest palpation & inspection: normal inspection of the chest Resp Auscultation: clear to auscultation bilaterally Cardio Palpation: normal PMI Heart sounds: S1 normal heart sound present, S2 normal heart sound present, no gallops, no murmurs and no rubs GI Palpation (GI): Soft to palpation Back/Spine/Pelvis Other: unremarkable Skin General skin exam: no rashes or lesions noted Neuro General: patient oriented x3 Extrem General: Yes normal to inspection Psych Mental Status: mental status grossly normal Office Procedures EKG Details: EKG with sinus bradycardia at 55/Min; T inversions in the inferior leads; [place] [id number], Complete Assessment & Plan Assessment & Plan (1) Atrial arrhythmia: Code(s): I49.8 - Other specified cardiac arrhythmias Category: Medical Plan: Improved after treatment of obstructive sleep apnea. No specific management at this time. In the last Holter however, there is no significant ectopy at all. (2) Essential hypertension: Code(s): I10 - Essential (primary) hypertension Category: Medical Plan: Stable. Continue Amlodipine. (3) JAYLA on CPAP: Comment: f/u sleep medicine Code(s): G47.33 - Obstructive sleep apnea (adult) (pediatric); Z99.89 - Dependence on other enabling machines and devices Category: Medical Plan: Continue CPAP. (4) Abnormal EKG: Code(s): R94.31 - Abnormal electrocardiogram [ECG] [EKG] Category: Medical Plan: We discussed about the finding of inferior T inversions. Not very noticeable in the last EKG. We discussed about potential for underlying coronary disease and workup for this including a stress test. After long discussion, patient stated that he would like to leave it as it is and test only if any symptoms. Plan Patient was informed and verbally consented to the use of an ambient scribe for clinic note documentation during this visit. Patient Instructions: - Continue using CPAP machine as instructed. - Maintain current blood pressure regimen. - Monitor for any new symptoms like chest pain and report them immediately. - Engage in more frequent, moderate walking as condition permits. - Contact us for any concerning cardiac symptoms and seek emergency help as necessary. Coding Level of Care Code Est Pt Level 4 (84211) Diagnoses Atrial arrhythmia I49.8 Essential hypertension I10 JAYLA on CPAP G47.33; Z99.89 Abnormal EKG R94.31 CPT Codes EKG - CPT: 70766-[id number], Complete ([id number])
[2024-06-20 10:47] VITALS: BP 122/60; PULSE 55; BMI 25.2
--- OUTSIDE RECORDS SUMMARY | 2024-06-20 12:59 | XMS_ITS | Clinical Summary ---
Author Organization [address] [facility] Address [address] [place] [address] Phone Care Team Providers Care Route Sales Manager Name Role Phone Unavailable Primary Care Provider Unavailabl e Social History Tobacco Use Types Packs/Day Years Used Date Smoking Tobacco: Never Assessed Sex and Gender Information Value Date Recorded Sex Assigned at Not on file Legal Sex Male 3:22 PM EST Gender Identity Not on file Sexual Orientation Not on file Plan of Treatment Health Maintenance Due Date Last Done Comments COVID-19 Vaccine (#1) 11/22/1950 DTaP,Tdap,and Td Vaccines (1 - Tdap) 1965 Pneumococcal Vaccine: 50+ Ye ars (1 of 2 - PCV) 1965 Zoster Vaccines (1 of 2) 1965 RSV Immunization Adult Patie nts (1 - 1-dose 75+ series) 2021 Cholesterol Screening (Lipid Panel) 03/20/2024 Depression Screening 03/20/2024 Falls Risk Assessment 03/20/2024 Hepatitis C Screening 03/20/2024 Medicare Annual Wellness Visit 03/20/2024 Social Influencers of Health Screening 03/20/2024 Influenza Vaccine (Season Ended) 2024 HIB Vaccines Aged Out No longer eligi [...] patient's age to complete this topic Meningococcal B Vaccine Aged Out No l onger eligible based on patient's age to complete this topic RSV Immunization Patients Un munira 20 months Aged Out No longer eligible b ased on patient's age to complete this topic Varicella Vaccines Aged Out No longer eligible based on patient's age to complete this topic Insurance MEDICARE [facility]
--- OUTSIDE RECORDS SUMMARY | 2024-06-20 12:59 | XMS_ITS | Encounter Summary ---
Author Organization [facility] Address [id number] [place] [id number] Care Team Providers Care Etiquette Coach Name Role Phone Unavailable Primary Care Provider Unavailabl e Encounter Details Date Type Department Care Team (Late st Contact Info) Description 03/19/2024 Lab Requisition [facility] - Main Lab [address] [facility] [place] [address] Bahman Jones MD [address] [place] [address] Benign prostatic hyperplasia with lower urinary tract [...] (03/18/2024) Final Diagnosis A. Prostate, Left Middle [place] (Core Biopsy): - Benign prostate tissue. B. Prostate, Left Lateral [place] (Core Biopsy): - Benign prostate tissue. C. Prostate, Left Middle Middle (Core Biopsy): - Benign prostate tissue. D. Prostate, Left Lateral Middle (Core Biopsy): - Benign prostate tissue. E. Prostate, Left Middle Base (Core Biopsy): - Benign prostate tissue. F. Prostate, Left Lateral Base (Core Biopsy): - Benign prostate tissue. G. Prostate, Right [place] (Core Biopsy): - Benign prostate tissue. H. Prostate, Right Lateral [place] (Core Biopsy): -PROSTATIC ACINAR ADENOCARCINOMA CONVENTIONAL (USUAL) [...] Involved by Tumor: 10% 03/22/2024 3:26 PM [facility] Clinical Information Elevated PSA = 6.5 (01/22/24) N40.1 [id number] 03/22/2024 3:26 PM [facility] Gross Description A. Prostate, Left Middle [place] Biopsy: Received, properly labeled, are two H and E stained slides and two unstained slides. B. Prostate, Left Lateral [place] Biopsy: Received, properly labeled, are two H [...] two unstained slides. G. Prostate, Right Middle [place] Biopsy: Received, properly labeled, are two H and E stained slides and two unstained slides. H. Prostate, right Lateral [place] Biopsy: Received, properly labeled, are two H [...] unstained slides. /al 03/22/2024 3:26 PM EST [facility] Disclaimer Unless otherwise specified, all tissue is 10% NB formalin fixed and paraffin embedded. Technical pathology services provided by [facility] at [address] [place] [address] [address], [place] [address] (CLIA #[id number]/Asha Mace MD, Processing Associate) 03/22/2024 3:26 PM EST [facility] Tissue Prostate / Unknown 03/18/20242024 3:31 PM EST Tissue specimen (specimen) Prostate / Unknown 03/18/2024 03/19/2024 3: 31 PM EST Tissue specimen (specimen) Prostate / Unknown 03/18/2024 03/19/2024 3: 31 PM EST Tissue specimen (specimen) Prostate / Unknown 03/18/2024 03/19/2024 3: 31 PM EST Tissue specimen (specimen) Prostate / Unknown 03/18/2024 03/19/2024 3: 31 PM EST Tissue specimen (specimen) Prostate / Unknown 03/18/2024 03/19/2024 3: 31 PM EST Tissue specimen (specimen) Prostate / Unknown 03/18/2024 03/19/2024 3: 31 PM EST Tissue specimen (specimen) Prostate / Unknown 03/18/2024 03/19/2024 3: 31 PM EST Tissue specimen (specimen) Prostate / Unknown 03/18/2024 03/19/2024 3: 31 PM EST Tissue specimen (specimen) Prostate / Unknown 03/18/2024 03/19/2024 3: 31 PM EST Tissue specimen (specimen) Prostate / Unknown 03/18/2024 03/19/2024 3: 31 PM EST Tissue specimen (specimen) Prostate / Unknown 03/18/2024 03/19/2024 3: 31 PM EST us Bahman Jones MD LAB PATHOLOGY ORDERABLES Final R esult [facility] [address] [place] [address], documented in this encounter Visit Diagnoses Diagnosis Benign prostatic hyperplasia with lower urinary tract symptoms documented in this encounter
--- OUTSIDE RECORDS SUMMARY | 2024-06-20 12:59 | XMS_ITS | Patient Health Record ---
Author Organization [facility] Address [address] [place] [address] Care Team Providers Care Tailor Apprentice Name Role Phone Karen Charles MD Primary Care Provider Luc Avila Unavailable [phone] Allergies No Known Allergies Reason For Referral No Information Medications Medication SIG (Take, Route, Frequency, Duration) Notes [...] Active Vitamin D Active Fluticasone Propionate Active Immunizations Vaccine Route Administration Date Status Comme nts Flu vaccine no Preserv 3 and > Unknown 12/18/2014 Admin istered Influenza Unknown 10/28/2020 Administered Problems Problem Type SNOMED Code ICD Code Onset Dates Problem Status W/U Status Risk Notes Problem 244038377 Encounter for screening for malignant neoplasm of colon (Z12.11) Active confirmed Problem 357585418 History of adenomatous polyp of colon (Z86.010) Active confirmed Problem Pre-procedure evaluation check (628935960) Encounter for other preprocedural examination (Z01.818) Active confirmed Problem Screening for malignant neoplasm of rectum (564123392) Encounter for screening for malignant neoplasm of rectum (Z12.12) Active confirmed Problem 986528162 Long-term use of aspirin therapy (Z79.82) Active confirmed Problem Diverticulosis of sigmoid colon (279985476) Diverticulosis of sigmoid colon (K57.30) Active confirmed Problem Diverticulosis of colon (502719940) Diverticulosis of colon (K57.30) Active confirmed Vital Signs Blood pressure diastolic 00 mm Hg 10/25/2023 Height 68.25 in 10/25/2023 Blood pressure systolic 00 mm Hg 10/25/2023 Weight 170 lbs 10/25/2023 BMI 25.66 kg/m2 10/25/2023 Encounters Encounter Location Date Provider Diagnosis [facility] [address] [place], [place] [id number] 02/07/2024 Luc Kelli Colon cancer screeni ng Z12.11 and Personal history of colonic polyps Z86.0100 [facility] [address] [place] [address] 10/25/2023 Luc Pereira History of adenomato us polyp of colon Z86.010 ; Encounter for other preprocedural examination Z01.818 and Encounter for screening for malignant neoplasm of colon Z12.11 Assessments Encounter Date Diagnosis (ICD Code) Assessment Notes Treatment Notes Treatment Clinical Notes Section Notes 02/07/2024 Colon cancer screening (ICD-10 - Z12.11) 02/07/2024 Personal history of colonic polyps (ICD-10 - Z86.0100) 10/25/2023 History of adenomatous polyp of colon (ICD-10 - Z86.010) Overall, Kurtis appears well. I did recommend a followup colonoscopy for further screening and assessment of the previous large flat adenoma in the transverse colon. Given the nature of that larger polyp that had been removed and it being almost 2 years since the last exam, I did recommend a followup colonoscopy to be sure no residual tissue remains. We did review the rationale for this regard to colon cancer prevention. Full consent was obtained for this, including risks of bleeding and perforation. The procedure will be done with monitored anesthesia care. Kurtis and his were comfortable with this plan. Thank you again for allowing me to participate in Kurtis's care. I shall continue to keep you advised of his progress. 10/25/2023 Encounter for other preprocedural examination (ICD-10 - Z01.818) Overall, Kurtis appears well. I did recommend a followup colonoscopy for further screening and assessment of the previous large flat adenoma in the transverse colon. Given the nature of that larger polyp that had been removed and it being almost 2 years since the last exam, I did recommend a followup colonoscopy to be sure no residual tissue remains. We did review the rationale for this regard to colon cancer prevention. Full consent was obtained for this, including risks of bleeding and perforation. The procedure will be done with monitored anesthesia care. Kurtis and his were comfortable with this plan. Thank you again for allowing me to participate in Kurtis's care. I shall continue to keep you advised of his progress. 10/25/2023 Encounter for screening for malignant neoplasm of colon (ICD-10 - Z12.11) Overall, Kurtis appears well. I did recommend a followup colonoscopy for further screening and assessment of the previous large flat adenoma in the transverse colon. Given the nature of that larger polyp that had been removed and it being almost 2 years since the last exam, I did recommend a followup colonoscopy to be sure no residual tissue remains. We did review the rationale for this regard to colon cancer prevention. Full consent was obtained for this, including risks of bleeding and perforation. The procedure will be done with monitored anesthesia care. Kurtis and his were comfortable with this plan. Thank you again for allowing me to participate in Kurtis's care. I shall continue to keep you advised of his progress. Plan Of Treatment Future Test Test Name Order Date COLONOSCOPY 04/15/2015 COLONOSCOPY 10/28/2020 COLONOSCOPY 02/17/2021 COLONOSCOPY 11/11/2021 COLONOSCOPY 10/25/2023 Insurance Providers Payer Name Payer Address Payer Phone Subscriber Number Group Number Insured Name Patient Relationship to Insured Coverage Start Date Coverage End Date MEDICARE OF [place] [address] [place] [address] [id number] KURTIS CORONADO Self - patient is the insured [facility] [address] [place], [place] [id number] KURTIS CORONADO Self - patient is the insured Medical (General) History Medical History History ICD Code Tubular adenomas removed in 1998, 2004, 2009, and in 06/2015 Denies SD,DM,CVA,Lung disease,renal dise ase Hyperlipidemia BPH Sleep apnea [...]
--- OUTSIDE RECORDS SUMMARY | 2024-06-20 12:59 | XMS_ITS ---
Author Organization [facility] Address [address] [place] [address] Care Team Providers Care Manager Employee Relations Name Role Phone Karen Charles MD Primary Care Provider Luc Avila [phone] REASON FOR VISIT screening,hx polyps Encounters Encounter Location Date Provider Diagnosis [facility] Outpatient [address] [place] [phone] 02/07/2024 Luc Pereira Colon cancer scree ashley Z12.11 and Personal history of colonic polyps Z86.0100 Assessments Encounter Date Diagnosis (ICD Code) Assessment Notes Treatment Notes Treatment Clinical Notes Section Notes 02/07/2024 Colon cancer screening (ICD-10 - Z12.11) 02/07/2024 Personal history of colonic polyps (ICD-10 - Z86.0100) Plan Of Treatment No Information Progress Notes * DOUGLAS CORONADONIS ADOB: [birth year] (78 yo M)Acc No.[id number]:02/07/2024 COLON WITH MAC Patient:?SUJATHA CORONADO Provider:?Luc Pereira MD :1945???Age:78 Y???Sex:Male Angelo e:02/07/2024 Address: [id number] Pcp:Karen Charles MD Subjective: * Chief Complaints: * ???1. Screening,hx polyps. * Medical History:? Objective: * Vitals:? Assessment: * Assessment: 1.?Colon cancer screening - Z12.11 (Primary)???2.?Personal history of colonic polyps - Z86.0100??? Plan: * Treatment: * Procedure Codes:?G0105 COLOR EC CANCR SCR; COLNSCPY HI RISK, 0529F INTRVL 3+YRS PTS CLNSCP DOCD, 0528F RCMND FLW-UP 10 YRS DOCD, Modifiers: 1P * * The named appointment provid er may or may not be the originator of this progress note, and it is not deemed complete until electronically signed by the appointment provider. Sign off status: Pending * Provider:?Luc Pereira MD Date:? 024 Generated for Osiel sanchez/Sudeep/Yamiltehsmitting on:?06/20/2024 12:58 PM EDT
--- OUTSIDE RECORDS SUMMARY | 2024-06-20 12:59 | XMS_ITS ---
Author Organization [facility] Address [address] [place] [phone] Care Team Providers Care Client Support Associate Name Role Phone Karen Charles MD Primary Care Provider Luc Avila Unavailable [phone] Allergies No Known Allergies REASON FOR VISIT Patient presents today for a colon screening Medications Medication SIG (Take, Route, Frequency, Duration) [...] each day Orally Once a day Active Problems Problem Type SNOMED Code ICD Code Onset Dates Problem Status W/U Status Risk Notes Problem Pre-procedure evaluation check (643088113) Encounter for other preprocedural examination (Z01.818) Active confirmed Vital Signs Blood pressure systolic 00 mm Hg 10/25/19 24 Blood pressure diastolic 00 mm Hg 024 Height 68.25 in 10/25/2023 Weight 170 lbs 10/25/2023 BMI 25.66 kg/m2 10/25/2023 Encounters Encounter Location Date Provider Diagnosis [facility] [address] [place] [phone] 10/25/2023 Luc Pereira History of adenomato us polyp of colon Z86.010 ; Encounter for other preprocedural examination Z01.818 and Encounter for screening for malignant neoplasm of colon Z12.11 Assessments Encounter Date Diagnosis (ICD Code) Assessment Notes Treatment Notes Treatment Clinical Notes Section Notes 10/25/2023 History of adenomatous polyp of [...] Follow Up: prn, Reason: Progress Notes * KURTIS CORONADO ADOB: [birth year] (77 yo M)Acc No.[id number]:10/25/2023 Progress Notes Patient:?KURTIS CORONADO Provider:?Luc Pereira MD :1945???Age:77 Y???Sex:Male Angelo e:10/25/2023 Address:[address] [place] [address] [place], [place], [facility] Pcp:Karen Charles MD Subjective: * Chief Complaints: * ???Patient presents today fo r a colon screening * HPI: ???incontinence:? I saw Kurtis in the office today for evaluation of his personal history of tubular adenomas of the colon and need for further colorectal cancer screening. He was accompanied by his . ?I last saw Kurtis in February of 2022, at which time he underwent a followup colonoscopy with removal of what appeared to be some residual polyp tissue from the larger flat polyp that had been previously removed and marked with ink. Since that time he has been feeling well. He enjoys a good appetite, without any significant heartburn or dysphagia. His bowel movements have been regular and without any signs of bleeding. He denies abdominal pain, jaundice, nor unintentional weight loss. ?Laboratories back in March revealed a normal CBC, chemistries, and liver profile. * ROS:?General/Constitutional:?Change in appetite?denies.?Chills?denies.?Fatigue?denies.?Ophthalmologic:?Comments?all negative.?ENT:?Comments?all negative.?Respiratory:?hemoptysis?denies.?Cough?denies.?Cardiovascular:?Chest pain?denies.?Orthopnea?denies.?Gastrointestinal:?Comments?See HPI for details.?Genitourinary:?Hematuria?denies.?Dysuria?denies.?Musculoskeletal:?Painful joints?denies.?Weakness?denies.?Skin:?Itching?denies.?Rash?denies.?Neurologic:?Headache?denies.?Seizures?denies.?Psychiatric:?Comments?all negative.? * Medical History:? * Surgical History:?Tracen Retin a-right Glaucoma left eye laser surgery eft cataract surgery planned for end of 11/2021 Right cataract surgery * Hospitalization/Major Diagno stic Procedure:?No Hospitalization History. * Family History:?Father: dece ased, diagnosed with HTN (hypertension), Diabetes, Heart disease.?Mother: , diagnosed with HTN (hypertension).?Maternal uncle: , diagnosed with Colon cancer.?Siblings: alive.? The patient has a younger brother that was found to have colon polyps. No 1st degree relatives with colon cancer No history of liver cancer. * Social History:?Tobacco Use:?Tobacco Use/Smoking?Are you a: nonsmoker.?Drugs/Alcohol:?Alcohol Screen?Points: 1, Interpretation: Negative.?Miscellaneous:?Marital status: . 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 ???Nonsmoker; no sig alcohol. * Medications:?TakingBiotin Vi tamin D Fluticasone Propionate Finasteride 5 MG Tablet 1 tablet Orally Once a daySimvastatin 40 MG Tablet 1 tablet in the evening Orally Once a dayTamsulosin HCl 0.4 MG Capsule 1 capsule 30 minutes after the same meal each day Orally Once a dayVitamin C 500 MG Tablet Chewable 1 tablet Orally Once a dayMulti Vitamin/Minerals 1 Tablet 1 Orally QDamLODIPine Besylate 5 MG Tablet Oral Taking Biotin Taking Vitamin D Taking Fluticasone Propionate Taking Finasteride 5 MG Tablet 1 tablet Orally Once a dayTaking Simvastatin 40 MG Tablet 1 tablet in the evening Orally Once a dayTaking Tamsulosin HCl 0.4 MG Capsule 1 capsule 30 minutes after the same meal each day Orally Once a dayTaking Vitamin C 500 MG Tablet Chewable 1 tablet Orally Once a dayTaking Multi Vitamin/Minerals 1 Tablet 1 Orally QDTaking amLODIPine Besylate 5 MG Tablet Oral DiscontinuedNorvasc 5 MG Tablet 1 tablet Orally Once a dayAspir-81 81 MG Tablet Delayed Release 1 tablet Orally Once a dayMedication List reviewed and reconciled with the patientDiscontinued Norvasc 5 MG Tablet 1 tablet Orally Once a dayDiscontinued Aspir-81 81 MG Tablet Delayed Release 1 tablet Orally Once a dayMedication List reviewed and reconciled with the patient * Allergies:?N.K.D.A.yes[Aller gies Verified] Objective: * Vitals:?Wt: 170 lbs, Ht: 68. 25 in, BMI:25.66 Index, BP: 00/00 mm Hg. * Examination: ???General Examination: ?GENERAL APPEARANCE:?pleasant, well nourished, well developed, in no acute distress.?EYES:?sclera non-icteric.?ORAL CAVITY:?mucosa moist.?NECK/THYROID:?no cervical lymphadenopathy, neck supple.?SKIN:?nonjaundiced, no spider angiomata.?HEART:?S1, S2 normal.?LUNGS:?clear to auscultation bilaterally.?ABDOMEN:?normal bowel sounds, no guarding or rigidity, no guarding or rigidity, no masses palpable, soft, nontender, nondistended.?EXTREMITIES:?no edema.?NEUROLOGIC:?alert and oriented.? Assessment: * Assessment: 1.?Encounter for other prepr ocedural examination - Z01.818 (Primary)?2.?History of adenomatous polyp of colon - Z86.010?3.?Encounter for screening for malignant neoplasm of colon - Z12.11? Overall, Kurtis appears well . I did recommend a followup colonoscopy for [...] to keep you advised of his progress. Plan: * Treatment: 2.?Encounter for screening for malignant neoplasm of colon?Procedure: COLONOSCOPY (Ordered for 10/25/2023)* with MACsched for 02/07/24 at 7:30 ammiralax * Procedure Codes:? * Preventive Medicine:? ??Counseling:?Care goal follow-up plan:?Above Normal BMI Follow-up?Giving encouragement to exercise,?BMI management provided?Yes.? ??Screenings:?Fall Risk Screening?Fall Risk Assessment:?No falls in the past year.? * Follow Up:?prn * * Sign off status: Completed true * Provider:?Luc Pereira MD Date:? 024 Generated for Osiel sanchez/Sudeep/Anastasiaitting on:?06/20/2024 12:59 PM EDT History and Physical Notes * HPI (History of Present Illness) Category Sub-Category Detail Notes Category Not es incontinence I saw Kurtis in the office today for evaluation of his personal history of tubular adenomas of the colon and need for further colorectal cancer screening. He was accompanied by his . I last saw Kurtis in February of 2022, at which time he underwent a followup colonoscopy with removal of what appeared to be some residual polyp tissue from the larger flat polyp that had been previously removed and marked with ink. Since that time he has been feeling well. He enjoys a good appetite, without any significant heartburn or dysphagia. His bowel movements have been regular and without any signs of bleeding. He denies abdominal pain, jaundice, nor unintentional weight loss. Laboratories back in March revealed a normal CBC, chemistries, and liver profile. Examination Category Sub-Category Detail Notes Category Not es General Examination GENERAL APPEARANCE: pleasant , well [...]
== END 2024-06-20 11:03 | disposition home or self-care (01) ==
PROVIDERS: PCP Internal Medicine; Visit Provider Internal Medicine
DX: I49.8 Other specified cardiac arrhythmias (principal); I10 Essential (primary) hypertension; G47.33 Obstructive sleep apnea (adult) (pediatric); Z99.89 Dependence on other enabling machines and devices; R94.31 Abnormal electrocardiogram [ECG] [EKG]
CPT/HCPCS: 93010; 99214

== ENCOUNTER → 2024-06-20 10:42 | Outpatient (BNVA) | payer MEDICARE, BC, SELFPAY | PROVIDERS: PCP Internal Medicine; Visit Provider Internal Medicine | DX: G47.33 Obstructive sleep apnea (adult) (pediatric) (principal); I10 Essential (primary) hypertension; I49.8 Other specified cardiac arrhythmias; R94.31 Abnormal electrocardiogram [ECG] [EKG]; Z99.89 Dependence on other enabling machines and devices | CPT/HCPCS: 93005; 99212 ==

== ENCOUNTER 2024-11-11 14:14 | Outpatient (AMB) | payer MEDICARE, BC, SELFPAY ==
--- OUTSIDE RECORDS SUMMARY | 2024-02-07 03:30 | XMS_ITS ---
Author Organization [facility] Address [address] [place] [address] Care Team Providers Care Marzipan Molder Name Role Phone Karen Charles MD Primary Care Provider Luc Avila [phone] REASON FOR VISIT screening,hx polyps Encounters Encounter Location Date Provider Diagnosis [facility] [place] [address] [place] [phone] 02/07/2024 Luc Pereira Colon cancer scree ashley Z12.11 and Personal history of colonic polyps Z86.0100 Assessments Encounter Date Diagnosis (ICD Code) Assessment Notes Treatment Notes Treatment Clinical Notes Section Notes 02/07/2024 Colon cancer screening (ICD-10 - Z12.11) 02/07/2024 Personal history of colonic polyps (ICD-10 - Z86.0100) Plan Of Treatment No Information Progress Notes * DOUGLAS CORONADONIS ADOB: 7 (78 yo M)Acc No.[id number]:02/07/2024 COLON WITH MAC Patient: SUJATHA VO Provider: Alex Pereira MD :1945 A ge:78 Y S ex:Male Date:02/07/2024 Address:[address] [place] [address] [id number] Pcp:Karen Charles MD Subjective: * Chief Complaints: [...] 04/09/2023 Generated for Osiel sanchez/Sudeep/Anastasiaitting on: 0 11/11/2024 04:34 PM EDT
[2024-11-11 14:27] VITALS: BP 128/78; PULSE 52; RESP 18; TEMP 36.4; O2SAT 97; BMI 25.8
--- NOTE | 2024-11-11 14:27 | A.OFFPC_ITS ---
Vital Signs 11/11/24 14:27 Height 5 ft 8.5 in Weight 172 lb BMI 25.8 BP 128/78 Blood Pressure Location Lt brachial Position Sitting Respiration 18 Pulse 52 Pulse Source Pulse Oximeter Temp 97.6 F Temp Source Oral Pulse Oximetry (%) 97 Oxygen Delivery Method Room Air Intake Visit Reasons: side of head hurts /ears blocked Intake Note: Pt is here today for a sick visit. Pt c/o R side scalp pain feels like a nerve, also he feels like there is a pimple on that side and his R side feels off. Allergies No Known Allergies Allergy (Verified 11/11/24 14:33) Medication List - Last Reconciled 11/11/24 by Karen Charles MD amlodipine 5 mg PO DAILY ascorbic acid (vitamin C) 500 mg PO DAILY biotin 1 mg PO DAILY chlorhexidine gluconate 0.12% 0.5 mL PO BID cholecalciferol (vitamin D3) 50 mcg PO DAILY finasteride 5 mg PO BEDTIME fluticasone propionate 50 mcg/actuation 1 spray intranasal DAILY multivitamin with iron 1 tab PO DAILY simvastatin 40 mg PO QPM tamsulosin 0.4 mg PO BEDTIME Tobacco use date assessed: 11/11/24 Fall risk assessment: No Falls in past year Last assessed Fall Risk: 11/11/24 Dental Screening Dental Screen Date: 11/11/24 Did you have a dental visit in the last 12 months?: Yes Did you have a dental problem in the last 6 months where you did not have access to dental care?: No Was dental information given to patient?: Patient has dentist HPI side of head hurts /ears blocked HPI Details Pt c/o R side MORGAN parietal region radiating to right side of the neck burning sharp like sensation for few days. Patient reports fullness sensation in the right ear. He developed painful rash in the right parietal region a few days ago. Patient denies fever chills sore throat cough congestion change in the vision nausea vomiting neck stiffness weakness or numbness in extremities or change in balance. Hypertension and hyperlipidemia are controlled on current medications [facility] Medical History (Updated 11/11/24 @ 15:13 by Karen Charles MD) Vitamin D deficiency Premature atrial contractions Essential hypertension BPH (benign prostatic hyperplasia) H/O needle biopsy GERD (gastroesophageal reflux disease) JAYLA on CPAP Hyperlipidemia Surgical History Hx of bilateral cataract extraction Hx of wisdom tooth extraction Hx of detached retina repair H/O colonoscopy Family History Father No problems noted. Mother No problems noted. Social History Housing: House Are you a primary healthcare network consultant to a significant other at home: No Do you presently have visiting nurse or other home services: No Alcohol intake: current Alcohol intake frequency: holidays/special occasions only Patient Tobacco Use Status: Never used Tobacco e-Cigarette/Vaping Use: Never Used service: Yes Current occupational status: retired Cognitive needs: No Hearing needs: No Vision needs: Yes Questionnaire Thrive Questionnaire Date Thrive assessed: 11/11/24 I am a: Patient What is your living situation today?: I have a steady place to live Within the past 12 months, did the food you bought not last and you didn't have the money to get more?: Never true Within the past 12 months, did you worry whether your food would run out before you got money to buy more?: Never true Do you have trouble paying for medicines?: No Do you have trouble getting transportation to medical appointments?: No Do you have trouble paying your heating and electricity bill?: No Do you have trouble taking care of your child, family member or friend?: No Do you have trouble with day-to-day activities such as bathing, preparing meals, shopping, managing finances, etc.?: No Are you currently unemployed and looking for a job?: No Are you interested in more education?: No Please select the resources that you would like help with: None Currently or been in a relationship where the following occur: No concerns reported THRIVE Score: 0 AUDIT C Alcohol Use Questionnaire (AUDIT-C) 1. How often do you have a drink containing alcohol?: 2-4 times a month Total Score: 2 HIRAM-7 AMB Questionnaire HIRAM-7 Date HIRAM - 7 assessed: 11/11/24 Feeling nervous, anxious, or on edge: 0 = Not at all Not being able to stop or control worryin = Not at all Worrying too much about different things: 0 = Not at all Trouble relaxin = Not at all Being so restless that it is hard to sit still: 0 = Not at all Becoming easily annoyed or irritable: 0 = Not at all Feeling afraid as if something awful might happen: 0 = Not at all Total HIRAM-7 score (0-4 normal; 5-9 mild; 10-14 moderate; 15-21 severe): 0 Source: Developed by Drs. Luc Dover, Perla Morataya, Abraham Love and colleagues, with an educational luis from [employer]. HIRAM-7 Assessment Billing HIRAM-7 Assessment Tool: HIRAM-7 Assessment 50690 Review of Systems Const All systems reviewed & are unremarkable except as noted in HPI and below Eyes Reports no additional complaints ENT Reports no additional complaints Card Reports no additional complaints Resp Reports no additional complaints GI Reports no additional complaints Reports no additional complaints Physical exam (Primary Care) Vital Signs: Last Vital Signs Temp 97.6 F 11/11/24 14:27 Pulse 52 11/11/24 14:27 Resp 18 11/11/24 14:27 BP 128/78 11/11/24 14:27 Pulse Ox 97 11/11/24 14:27 Oxygen Delivery Method Room Air 11/11/24 14:27 BMI result Body Mass Index 25.8 Tobacco/Smoking Status: Tobacco use Status Tobacco use date assessed 11/11/24 11/11/24 14:44 Patient Tobacco Use Status Never used Tobacco 11/11/24 14:44 e-Cigarette/Vaping Use Never Used 11/11/24 14:27 Thrive Assessment: Date of Thrive Assessment Date Thrive assessed 11/11/24 11/11/24 14:27 Currently or been in a relationship where the following occur: No concerns reported Const General: no acute distress HENMT Other: Healing shallow ulcers in the parietal region Head: Yes scalp tenderness (Right parietal region) Ears: hearing grossly normal bilaterally and TM's normal bilaterally General nose exam: No nasal discharge present Face and sinus: Yes normal facial exam Mouth: Normal oral and palatal mucosa present Throat: Yes posterior oropharynx normal Eyes General: appearance normal, both eyes and all related structures Neck Other: Reproducible tenderness or right posterior cervical region Neck: Yes no lymphadenopathy and Yes supple Resp Effort & Inspection: normal respiratory effort Auscultation: clear to auscultation bilaterally Cardio Rhythm: regular rhythm Heart sounds: S1 normal heart sound present and S2 normal heart sound present Coding Level of Care Code Est Pt Level 3 (41429) Diagnoses Headache R51.9 HTN (hypertension) I10 Additional Codes HIRAM-7 Assessment Billing - HIRAM-7 Assessment Tool: HIRAM-7 Assessment 83775 ([id number]) Assessment & Plan Assessment & Plan (1) Headache: Code(s): R51.9 - Headache, unspecified Category: Medical Plan: For unilateral parietal headache with a healing rash ?herpes zoster Valtrex is prescribed. Supportive care discussed with the patient. Check CRP and CBC (2) HTN (hypertension): Code(s): I10 - Essential (primary) hypertension Category: Medical Plan: Continue amlodipine Orders: Orders C Reactive Protein Today R51.9 - Headache, unspecified Complete Blood Count Auto Diff Today R51.9 - Headache, unspecified Erythrocyte Sedimentation Rate Today R51.9 - Headache, unspecified Medications: New valacyclovir (Valtrex) 1,000 mg PO Q8H 30 tabs 0RF
--- OUTSIDE RECORDS SUMMARY | 2024-11-11 16:35 | XMS_ITS | Clinical Summary ---
Author Organization [address] [facility] Address [address] [place] [address] Phone Care Team Providers Care Dryer Feeder Name Role Phone Unavailable Primary Care Provider [...] Pneumococcal Vaccine: 50+ Ye ars (1 of 1 - PCV) 1996 Zoster Vaccines (1 of 2) 1996 RSV Immunization Adult Patie nts (1 - 1-dose 75+ series) 2021 Depression Screening 03/06/2024 Cholesterol Screening (Lipid Panel) 03/20/2024 Falls Risk Assessment 03/20/2024 Hepatitis C Screening 03/20/2024 Medicare Annual Wellness Visit 03/20/2024 Social Influencers of Health Screening 03/20/2024 COVID-19 Vaccine (1 - 2023-2 5 season) 2024 Influenza Vaccine (#1) 2024 HIB Vaccines Aged Out No longer [...] age to complete this topic Insurance MEDICARE [facility]
--- OUTSIDE RECORDS SUMMARY | 2024-11-11 16:35 | XMS_ITS | Encounter Summary ---
Author Organization [facility] Address [address] [place] [phone] Care Team Providers Care Brazer Electronic Name Role Phone Unavailable Primary Care Provider Unavailabl e Encounter Details Date Type Department Care Team (Late st Contact Info) Description 03/19/2024 Lab Requisition [facility] Lab [address] [facility] [place] [address] Bahman Jones MD [address] [place], [place] [id number] Benign prostatic hyperplasia with lower urinary tract [...] (03/18/2024) Final Diagnosis A. Prostate, Left Middle [place] (Core Biopsy): - Benign prostate tissue. B. Prostate, Left Lateral [place] (Core Biopsy): - Benign prostate tissue. C. Prostate, Left Middle Middle (Core Biopsy): - Benign prostate tissue. D. Prostate, Left Lateral Middle (Core Biopsy): - Benign prostate tissue. E. Prostate, Left Middle Base (Core Biopsy): - Benign prostate tissue. F. Prostate, Left Lateral Base (Core Biopsy): - Benign prostate tissue. G. Prostate, Right Middle [place] (Core Biopsy): - Benign prostate tissue. H. Prostate, Right Lateral [place] (Core Biopsy): -PROSTATIC ACINAR ADENOCARCINOMA CONVENTIONAL (USUAL) TYPE -[place] Score: (3+3=6), Grade Group 1 Total Number [...] Biopsy): -PROSTATIC ACINAR ADENOCARCINOMA CONVENTIONAL (USUAL) TYPE -[place] Score: (3+3=6), Grade Group 1 Total Number of Cores: 1 Number of Positive Cores: 1 Percent of Prostatic Tissue Continuously Involved by Tumor: 10% 03/22/2024 3:26 PM [facility] Clinical Information Elevated PSA = 6.5 (01/22/24) N40.1 [id number] 03/22/2024 3:26 PM [facility] Gross Description A. Prostate, Left Middle [place] Biopsy: Received, properly labeled, are two H and E stained slides and two unstained slides. B. Prostate, Left Lateral [place] Biopsy: Received, properly labeled, are two H [...] two unstained slides. G. Prostate, Right Middle [place] Biopsy: Received, properly labeled, are two H and E stained slides and two unstained slides. H. Prostate, right Lateral [place] Biopsy: Received, properly labeled, are two H [...] unstained slides. /al 03/22/2024 3:26 PM EST [facility] Disclaimer Unless otherwise specified, all tissue is 10% NB formalin fixed and paraffin embedded. Technical pathology services provided by [facility] at [address] [place] [address] [address], [place] [address] (CLIA #[id number]/Asha Mace MD, Assessment Nurse Practitioner) 03/22/2024 3:26 PM EST [facility] Tissue Prostate / Unknown 03/18/20242024 3:31 [...] MD LAB PATHOLOGY ORDERABLES Final R esult [facility] ([facility]) [facility] [address] [place] [address], documented in this encounter Visit Diagnoses Diagnosis Benign prostatic hyperplasia with lower urinary tract symptoms documented in this encounter
--- OUTSIDE RECORDS SUMMARY | 2024-11-11 16:35 | XMS_ITS | Patient Health Record ---
Author Organization [facility] Address [address] [place] [address] Care Team Providers Care Business Intelligence Developer Name Role Phone Karen Charles MD Primary Care Provider Luc Avila Unavailable [phone] Allergies No Known Allergies Reason For Referral [...] Problem Status W/U Status Risk Notes Problem 711087190 Encounter for screening for malignant neoplasm of colon (Z12.11) Active confirmed Problem 626384447 History of adenomatous polyp of colon (Z86.010) Active confirmed Problem Pre-procedure evaluation check (839853395) Encounter for other preprocedural examination (Z01.818) Active confirmed Problem Screening for malignant neoplasm of rectum (071947598) Encounter for screening for malignant neoplasm of rectum (Z12.12) Active confirmed Problem 327782199 Long-term use of aspirin therapy (Z79.82) Active confirmed Problem Diverticulosis of sigmoid colon (508691790) Diverticulosis of sigmoid colon (K57.30) Active confirmed Problem Diverticulosis of colon (782152801) Diverticulosis of colon (K57.30) Active confirmed Encounters Encounter Location Date Provider Diagnosis [facility] [address] [place] [id number] 02/07/2024 Luc Pereira Colon cancer menae ashley Z12.11 and Personal history of colonic polyps Z86.0100 Assessments Encounter Date Diagnosis (ICD Code) Assessment Notes Treatment Notes Treatment Clinical Notes Section Notes 02/07/2024 Colon cancer screening (ICD-10 - Z12.11) 02/07/2024 Personal history of colonic polyps (ICD-10 - Z86.0100) Plan Of Treatment Future Test Test Name Order Date COLONOSCOPY 04/15/2015 COLONOSCOPY 10/28/2020 COLONOSCOPY 02/17/2021 COLONOSCOPY 11/11/2021 COLONOSCOPY 10/25/2023 Insurance Providers Payer Name Payer Address Payer Phone Subscriber Number Group Number Insured Name Patient Relationship to Insured Coverage Start Date Coverage End Date MEDICARE OF [place] [address] [place] [address] [phone] [id number] CLIFFSUJATHA NEGRON Self - patient is the insured [facility] [address] [place], [place] [id number] SUJATHA CORONADO Self - patient is the [...]
== END 2024-11-11 15:21 | disposition home or self-care (01) ==
LOC: HO.HMCC 14:15
PROVIDERS: PCP Internal Medicine; Visit Provider Internal Medicine
DX: R51.9 Headache, unspecified (principal); I10 Essential (primary) hypertension

== ENCOUNTER → 2024-11-11 14:14 | Outpatient (BNVA) | payer MEDICARE, BC, SELFPAY | PROVIDERS: PCP Internal Medicine; Visit Provider Internal Medicine | DX: I10 Essential (primary) hypertension (principal); M54.2 Cervicalgia; R21 Rash and other nonspecific skin eruption; E78.5 Hyperlipidemia, unspecified; R51.9 Headache, unspecified; Z79.899 Other long term (current) drug therapy | CPT/HCPCS: 96127; 99212 ==

== ENCOUNTER 2024-11-12 11:02 | Outpatient (REF) | payer MEDICARE, BC, SELFPAY ==
--- OUTSIDE RECORDS SUMMARY | 2024-02-07 03:30 | XMS_ITS ---
Author Organization [facility] Address [address] [place] [address] Care Team Providers Care Perfect Bind Machine Operator Name Role Phone Karen Charles MD Primary Care Provider Luc Avila [phone] REASON FOR VISIT screening,hx polyps Encounters Encounter Location Date Provider Diagnosis [facility] [place] [address] [place] [id number] 02/07/2024 Luc Pereira Colon cancer scree ashley Z12.11 and Personal history of colonic polyps Z86.0100 Assessments Encounter Date Diagnosis (ICD Code) Assessment Notes Treatment Notes Treatment Clinical Notes Section Notes 02/07/2024 Colon cancer screening (ICD-10 - Z12.11) 02/07/2024 Personal history of colonic polyps (ICD-10 - Z86.0100) Plan Of Treatment No Information Progress Notes * DOUGLAS CORONADONIS ADOB: 7 (78 yo M)Acc No.[id number]:02/07/2024 COLON WITH MAC Patient: SUJATHA OV Provider: Alex Pereira MD :1945 A ge:78 Y S ex:Male Date:02/07/2024 Address:[address] [place] [address] [id number] Pcp:Karen Charles MD Subjective: * Chief Complaints: * 1 . Screening,hx polyps. * Medical History: Objective: * Vitals: Assessment: * Assessment: 1. C olon cancer screening - Z12.11 (Primary) 2 . P ersonal history of colonic polyps - Z86.0100 Plan: * Treatment: * Procedure Codes: G 0105 COLOREC CANCR SCR; COLNSCPY HI RISK, 0529F INTRVL 3+YRS PTS CLNSCP DOCD, 0528F RCMND FLW-UP 10 YRS DOCD, Modifiers: 1P * * The named appointment provid er may or may not be the originator of this progress note, and it is not deemed complete until electronically signed by the appointment provider. Sign off status: Pending * Provider: Alex Pereira MD Date: 1 04/09/2023 Generated for Osiel sanchez/Sudeep/Anastasiaitting on: 0 11/12/2024 01:22 PM EDT
[2024-11-12 13:05] LABS: MANUAL DIFF FLAG NO
[2024-11-12 13:18] LABS: Hematocrit 42.9 % (42.0-52.0); Hemoglobin 13.9 g/dl (14.0-18.0); Imm Gran Abs Auto 0.02 X10*3/uL (0.00-0.03); Imm Gran Pct Auto 0.3 % (0.0-0.4); Lymphocytes Absolute Auto 1.5 X10*3/uL (1.2-4.9); Mean Corpuscular HGB Conc 32.4 g/dl (31.0-36.0); Mean Corpuscular Hemoglobin 28.7 pg (27.0-33.0); Mean Corpuscular Volume 88.5 fL (80.0-98.0); NRBC Abs Auto 0.000 X10*3/uL (0.0-0.012); NRBC Pct Auto 0.0 /100WBC (0.0-0.2); Platelet Count 170 X10*3/uL (160-400); Red Blood Count 4.85 X10*6/uL (4.60-5.80); White Blood Count 6.4 X10*3/uL (4.8-10.8)
--- OUTSIDE RECORDS SUMMARY | 2024-11-12 13:22 | XMS_ITS | Encounter Summary ---
[facility] Organization [facility] Address [address] [place] [id number] Care Team Providers Care Burring Machine Operator Name Role Phone Unavailable Primary Care Provider Unavailabl e Encounter Details Date Type Department Care Team (Late st Contact Info) Description 03/19/2024 Lab Requisition [facility] - Main Lab [address] [facility] [place] [address] Bahman Jones MD [address] [place] [address] Benign prostatic hyperplasia with lower urinary tract [...] (03/18/2024) Final Diagnosis A. Prostate, Left Middle [place] (Core Biopsy): - Benign prostate tissue. B. Prostate, Left Lateral [place] (Core Biopsy): - Benign prostate tissue. C. Prostate, Left Middle Middle (Core Biopsy): - Benign prostate tissue. D. Prostate, Left Lateral Middle (Core Biopsy): - Benign prostate tissue. E. Prostate, Left Middle Base (Core Biopsy): - Benign prostate tissue. F. Prostate, Left Lateral Base (Core Biopsy): - Benign prostate tissue. G. Prostate, Right [place] (Core Biopsy): - Benign prostate tissue. H. Prostate, Right Lateral [place] (Core Biopsy): -PROSTATIC ACINAR ADENOCARCINOMA CONVENTIONAL (USUAL) TYPE -Ransom Score: (3+3=6), Grade Group 1 Total Number [...] Biopsy): -PROSTATIC ACINAR ADENOCARCINOMA CONVENTIONAL (USUAL) TYPE -Ransom Score: (3+3=6), Grade Group 1 Total Number of Cores: 1 Number of Positive Cores: 1 Percent of Prostatic Tissue Continuously Involved by Tumor: 10% 03/22/2024 3:26 PM [facility] Clinical Information Elevated PSA = 6.5 (01/22/24) N40.1 [id number] 03/22/2024 3:26 PM [facility] Gross Description A. Prostate, Left [place] Biopsy: Received, properly labeled, are two H and E stained slides and two unstained slides. B. Prostate, Left Lateral [place] Biopsy: Received, properly labeled, are two H [...] two unstained slides. G. Prostate, Right [place] Biopsy: Received, properly labeled, are two H and E stained slides and two unstained slides. H. Prostate, right Lateral [place] Biopsy: Received, properly labeled, are two H [...] unstained slides. /al 03/22/2024 3:26 PM EST [facility] Disclaimer Unless otherwise specified, all tissue is 10% NB formalin fixed and paraffin embedded. Technical pathology services provided by [facility] at [address] [place] [address] [address], [place] [address] (CLIA #[id number]/Asha Mace MD, Leaf Sucker Operator) 03/22/2024 3:26 PM EST [facility] Tissue Prostate / Unknown 03/18/20242024 [...] MD LAB PATHOLOGY ORDERABLES Final R esult [facility] [address] [place] [address], documented in this encounter Visit Diagnoses Diagnosis Benign prostatic hyperplasia with lower urinary tract symptoms documented in this encounter
--- OUTSIDE RECORDS SUMMARY | 2024-11-12 13:22 | XMS_ITS | Patient Health Record ---
Author Organization [facility] Address [address] [place] [address] Care Team Providers Care Monitoring Specialist Name Role Phone Karen Charles MD Primary Care Provider Luc Avila Unavailable [phone] Allergies No Known Allergies Reason For Referral [...] Problem Status W/U Status Risk Notes Problem [id number] Encounter for screening for malignant neoplasm of colon (Z12.11) Active confirmed Problem 013794167 History of adenomatous polyp of colon (Z86.010) Active confirmed Problem Pre-procedure evaluation check (815696803) Encounter for other preprocedural examination (Z01.818) Active confirmed Problem Screening for malignant neoplasm of rectum (158049768) Encounter for screening for malignant neoplasm of rectum (Z12.12) Active confirmed Problem 809681643 Long-term use of aspirin therapy (Z79.82) Active confirmed Problem Diverticulosis of sigmoid colon (332359799) Diverticulosis of sigmoid colon (K57.30) Active confirmed Problem Diverticulosis of colon (722991427) Diverticulosis of colon (K57.30) Active confirmed Encounters Encounter Location Date Provider Diagnosis [facility] Outpatient [address] [place] [phone] 02/07/2024 Luc Pereira Colon cancer menae ashley [...] Date MEDICARE OF [place] [address] [place] [address] [phone] [id number] CLIFFSUJATHA NEGRON Self - patient is the insured [facility] [address] [place], [place] [id number] [phone] [id number] SUJATHA CORONADO Self - patient is the insured Medical (General) History Medical History History ICD Code Tubular adenomas removed in 1998, 2004, 2009, and in 06/2015 Denies [place],DM,CVA,Lung disease,renal dise ase Hyperlipidemia BPH Sleep apnea [...]
--- OUTSIDE RECORDS SUMMARY | 2024-11-12 13:22 | XMS_ITS | Clinical Summary ---
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
== END 2024-11-12 11:03 | disposition home or self-care (01) ==
LOC: HO.HMGCLDS 11:02
PROVIDERS: PCP Internal Medicine; Visit Provider Internal Medicine
DX: R51.9 Headache, unspecified (principal)
CPT/HCPCS: 36415; 85025; 85652; 86140